=== PATIENT | male | born 1945 | race Caucasian/White ===

== ENCOUNTER 2020-08-02 06:18 | Day surgery (SDC) | payer MEDICARE, SELFPAY ==
[2020-07-27 10:53] VITALS: BMI 26.2
--- NOTE | 2020-07-30 08:51 | HO.ANESPROP2 ---
Documented by User: Sheryl Jensen 07/30/20 08:52 HPI - Anesthesia Eval Consult details Narrative: 75yo M for Upper Endoscopy Vague report of reaction to anesthesia many years ago. Multiple surgeries without any issue since. [facility] Past Medical History Medical History (Updated 07/30/20 @ 08:52 by Sheryl Jensen) Kerr esophagus Diabetes mellitus GERD (gastroesophageal reflux disease) Hiatal hernia History of anesthesia reaction History of hepatitis B History of skin cancer Hyperlipidemia Hypertension Surgical History Surgical History (Updated 07/27/20 @ 10:40 by Mirna Zelaya) History of dental surgery History of esophagogastroduodenoscopy (EGD) History of tracheostomy as a child Hx of appendectomy Hx of cholecystectomy Hx of colonoscopy Hx of endoscopic retrograde cholangiopancreatography Social History Social History Are you a primary inspector health care facilities to a significant other at home: No Do you presently have visiting nurse or other home services: No Smoking Status: Former smoker Smoking Quit Date: 40 yrs ago Use of substances other than those prescribed or required for medical reasons: No Have you been hit, kicked, punched, or otherwise hurt by someone within the past year? If so, by whom?: No Advance Directives: No Advance Directives Information Provided: No Advance Directives on File: No Recently lost weight without trying: No Meds Allergies Allergy/AdvReac Type Severity Reaction Status Date / Time peanut [PEANUT] Allergy Unknown FACIAL Verified 08/02/20 06:36 SWELLIN - ITCHY ALL OVER Seasonal Allergies Allergy Nasal Verified 07/27/20 10:48 congestion Home Medications Medication Instructions Recorded Confirmed Last Taken Type acetaminophen [Tylenol] 650 mg PO Q6H PRN 07/27/20 07/27/20 Unknown History aspirin [Baby Aspirin] 81 mg PO DAILY 07/27/20 07/27/20 Unknown History cholecalciferol (vitamin D3) 50 mcg PO DAILY 07/27/20 07/27/20 Unknown History [Vitamin D3] lisinopril 1 tab PO BID 07/27/20 07/27/20 Unknown History meclizine 1 tab PO BEDTIME 07/27/20 07/27/20 Unknown History metformin 1 tab PO DAILY 07/27/20 07/27/20 Unknown History omeprazole 1 cap PO BEDTIME 07/27/20 07/27/20 Unknown History simvastatin 1 tab PO DAILY 07/27/20 07/27/20 Unknown History Exam Exam Date and Time: July 30, 2020 0851 Height,Weight and Vital Signs: Height 5 ft 4 in Weight 69.4 kg Assessment and Plan Assessment Anesthesia Assessment: Chart Reviewed Documented by User: Geri Logan 08/02/20 07:19 [facility] Past Medical History Medical History (Updated 07/30/20 @ 08:52 by Sheryl Jensen) Kerr esophagus Diabetes mellitus GERD (gastroesophageal reflux disease) Hiatal hernia History of anesthesia reaction History of hepatitis B History of skin cancer Hyperlipidemia Hypertension Surgical History Surgical History (Updated 07/27/20 @ 10:40 by Mirna Zelaya) History of dental surgery History of esophagogastroduodenoscopy (EGD) History of tracheostomy as a child Hx of appendectomy Hx of cholecystectomy Hx of colonoscopy Hx of endoscopic retrograde cholangiopancreatography Social History Social History Are you a primary inspector health care facilities to a significant other at home: No Do you presently have visiting nurse or other home services: No Smoking Status: Former smoker Smoking Quit Date: 40 yrs ago Use of substances other than those prescribed or required for medical reasons: No Have you been hit, kicked, punched, or otherwise hurt by someone within the past year? If so, by whom?: No Advance Directives: No Advance Directives Information Provided: No Advance Directives on File: No Recently lost weight without trying: No Meds Allergies Allergy/AdvReac Type Severity Reaction Status Date / Time peanut [PEANUT] Allergy Unknown FACIAL Verified 08/02/20 06:36 SWELLIN - ITCHY ALL OVER Seasonal Allergies Allergy Nasal Verified 07/27/20 10:48 congestion Home Medications Medication Instructions Recorded Confirmed Last Taken Type acetaminophen [Tylenol] 650 mg PO Q6H PRN 07/27/20 07/27/20 Unknown History aspirin [Baby Aspirin] 81 mg PO DAILY 07/27/20 07/27/20 Unknown History cholecalciferol (vitamin D3) 50 mcg PO DAILY 07/27/20 07/27/20 Unknown History [Vitamin D3] lisinopril 1 tab PO BID 07/27/20 07/27/20 Unknown History meclizine 1 tab PO BEDTIME 07/27/20 07/27/20 Unknown History metformin 1 tab PO DAILY 07/27/20 07/27/20 Unknown History omeprazole 1 cap PO BEDTIME 07/27/20 07/27/20 Unknown History simvastatin 1 tab PO DAILY 07/27/20 07/27/20 Unknown History Exam Airway Mallampati Class: II TM Dist: >3cm Neck ROM: Full Denture: Upper Heart: RRR Lungs: CtA BL Assessment and Plan Assessment Anesthesia Assessment: Anesthesia Plan Discussed and Chart Reviewed Final Anesthetic Review NPO: Yes ASA Class: III Final Preanesthetic Review: No Changes in Pt Med Stat and Consent Obtained/Reviewed Patient Risk: Intermediate Procedure Risk: Intermediate Anesthetic Plan Anesthetic Plan: MAC: Disposition: Standard PACU
[2020-08-02 06:50] VITALS: BP 156/78; PULSE 64; RESP 16; TEMP 36.2; O2SAT 95
[2020-08-02 06:55] LABS: Glucose, Whole Blood 151 mg/dL (60-115)
[2020-08-02] MEDS: Lactated Ringers 1,000 ML 100 ML IVCONT (07:05)
[2020-08-02 08:00] VITALS: BP 95/61; PULSE 73; RESP 18; TEMP 36.2; O2SAT 93
--- NOTE | 2020-08-02 08:05 | PM.OP ---
Brief Operative Note Date of Service: 08/02/20 Pre-op diagnosis: Kerr's esophagus Post-op diagnosis: other (Same, Hiatal hernia, Gastric retention) Procedure: EGD with biopsies Surgeon: Sd Phillips Anesthesia: MAC Estimated blood loss (mL): 3.0 Pathology: other (A. EG Junction at 33cm) Condition: stable Disposition: PACU
[2020-08-02 08:15] VITALS: BP 135/81; PULSE 71; RESP 18; TEMP 36.1; O2SAT 93
--- NOTE | 2020-08-02 09:33 | OP_ITS ---
SURGEON: Sd Phillips MD INDICATIONS: The patient presents for evaluation of Kerr's esophagus and low-grade dysplasia. Full consent has been obtained from him for this, including risks of bleeding and perforation. PREOPERATIVE DIAGNOSIS: POSTOPERATIVE DIAGNOSIS: PROCEDURE PERFORMED: Esophagogastroduodenoscopy with biopsies. ESTIMATED BLOOD LOSS: COMPLICATIONS: ANESTHESIA: Monitored anesthesia care. ASSISTANTS: SPECIMENS: PREOPERATIVE DIAGNOSES: Kerr's esophagus and low-grade dysplasia. POSTOPERATIVE DIAGNOSES: Kerr's esophagus and low-grade dysplasia, hiatal hernia, gastric retention. DESCRIPTION OF PROCEDURE: The patient was placed in the left lateral decubitus position. The Olympus video gastroscope was passed in the posterior oropharynx and upper esophagus under direct vision. The scope was passed slowly into the distal esophagus. The gastroesophageal junction appeared at 33 cm. There were small areas of Kerr's appearing mucosa, less than 1 cm in length and in just small segments. There was no esophagitis. There was a moderate-sized hiatal hernia. The scope was entered into the stomach. There was a moderate amount of food within the stomach. The scope was advanced, past this to the pylorus. The duodenum was cannulated to the descending portion. The duodenum including the bulb appeared normal without mass or ulceration. The scope was withdrawn back in the stomach. The pylorus was patent. Peristalsis appeared normal. The gastric antrum and body appeared normal. The scope was retroflexed visualizing the proximal stomach, but visualization was almost completely obscured due to the food. There were no abnormalities noted, but again visualization was very limited. The scope was straightened out and withdrawn back into the esophagus. Multiple biopsies were obtained at 33 cm from the areas that appeared grossly consistent with Kerr's mucosa. Proximal to this, the esophageal mucosa appeared normal. The scope was withdrawn from the patient. He tolerated the procedure well and was returned to the recovery area in stable condition. IMPRESSION: 1. History of Kerr's esophagus, rule out dysplasia. 2. Hiatal hernia. 3. Gastric retention. PLAN: The results of the biopsy will be checked. If the biopsies appear normal or just with low-grade dysplasia, I would then recommend a repeat upper endoscopy within 1 to 2 years. If there is any worsening of the dysplasia, then we would need to consider referral for endoscopic ablation of the Kerr's mucosa. He will continue his current omeprazole 20 mg daily. He has no symptoms of gastroparesis at this time, but I will speak with him and his regarding that and advise him to be sure not to eat for at least 4 hours before bedtime. If he develops any symptoms such as early satiety, then we may need to proceed with a nuclear medicine gastric emptying study. MD YOANA Spangler/JOSE / [id number] MTDD
== END 2020-08-02 08:55 | disposition home or self-care (01) ==
PROVIDERS: PCP Internal Medicine; Visit Provider Internal Medicine
PROC: 0DJ08ZZ Inspection of Upper Intestinal Tract, Via Natural or Artificial Opening Endoscopic (ICD-10-PCS; CPT 43235; principal; 2020-08-02 07:30)
DX: K22.710 Barrett's esophagus with low grade dysplasia (principal); K21.9 Gastro-esophageal reflux disease without esophagitis; K31.89 Other diseases of stomach and duodenum; K44.9 Diaphragmatic hernia without obstruction or gangrene; I10 Essential (primary) hypertension; E11.9 Type 2 diabetes mellitus without complications; Z79.84 Long term (current) use of oral hypoglycemic drugs; Z79.899 Other long term (current) drug therapy
CPT/HCPCS: 43239; 82947; 88305

== ENCOUNTER 2020-08-30 09:03 | Outpatient (REF) | payer MEDICARE, SELFPAY ==
[2020-08-30 10:23] LABS: MANUAL DIFF FLAG NO
[2020-08-30 10:30] LABS: Glucose Urine UA NEG (NEG); Leukocyte Esterase Urine NEG (NEG); Nitrite Urine NEG (NEG); Urine Blood NEG (NEG); Urine Ketones NEG (NEG); Urine Protein NEG (NEG-TRACE)
[2020-08-30 10:35] LABS: Basophils Percent Auto 0.7 % (0-2); Eosinophils Absolute Auto 0.3 X10*3/uL (0.0-0.4); Eosinophils Percent Auto 6.6 % (0-4); Hematocrit 41.7 % (42-52); Hemoglobin 14.2 g/dl (14.0-18.0); Imm Gran Abs Auto 0.02 X10*3/uL (0.00-0.03); Imm Gran Pct Auto 0.5 % (0.0-0.4); Lymphocytes Absolute Auto 1.3 X10*3/uL (1.2-4.9); Lymphocytes Percent Auto 31.3 % (20-40); Mean Corpuscular HGB Conc 34.1 g/dl (31.0-36.0); Mean Corpuscular Hemoglobin 32.6 pg (27.0-33.0); Mean Corpuscular Volume 95.9 fL (80-98); Mean Platelet Volume 9.7 fL (9.4-12.4); Monocytes Absolute Auto 0.4 X10*3/uL (0.1-1.2); Monocytes Percent Auto 8.2 % (2-11); Neutrophils Absolute Auto 2.2 X10*3/uL (2.0-8.3); Neutrophils Percent Auto 52.7 % (45-73); Platelet Count 108 X10*3/uL (160-400); Red Blood Count 4.35 X10*6/uL (4.60-5.80); Red Cell Distribution Width 11.9 % (11.0-16.0); White Blood Count 4.3 X10*3/uL (4.8-10.8)
[2020-08-30 10:50] LABS: Microalbum/Creatinine Ratio Ur 22.1 ug/mg cr
[2020-08-30 10:56] LABS: Alanine Aminotransferase 55 U/L (0-40); Albumin Level 4.2 g/dL (3.5-5.0); Alkaline Phosphatase 121 U/L (39-117); Anion Gap 11 (12-20); Aspartate Amino Transferase 53 U/L (5-37); Bilirubin Total 1.6 mg/dL (0.0-1.0); Blood Urea Nitrogen 17 mg/dL (9-16); Calcium 9.4 mg/dL (8.4-10.2); Carbon Dioxide 27 mmol/L (22-29); Chloride 107 mmol/L (96-108); Cholesterol 169 mg/dL; Estimated Glomerular Filt Rate > 60; Glucose Fasting 136 mg/dL (60-99); HDL Cholesterol 52 mg/dL; LDL Cholesterol Calculated 96 mg/dl; Potassium 4.4 mmol/L (3.3-5.1); Sodium 141 mmol/L (135-145); Total Protein 6.9 g/dL (6.5-8.0); Triglycerides 105 mg/dL
[2020-08-30 10:58] LABS: Appearance Urine CLEAR; Color Urine YELLOW
[2020-08-30 11:22] LABS: Prostate Specific Antigen Scr 0.54 ng/mL (<0.05-4.0)
[2020-08-30 11:24] LABS: Estimated Average Glucose 134 mg/dL; Hemoglobin A1c % 6.3 %
== END 2020-08-30 09:04 | disposition home or self-care (01) ==
LOC: HO.10HDL 09:03
PROVIDERS: Visit Provider Internal Medicine
DX: E11.9 Type 2 diabetes mellitus without complications (principal); N40.0 Benign prostatic hyperplasia without lower urinary tract symptoms; E78.00 Pure hypercholesterolemia, unspecified; K21.9 Gastro-esophageal reflux disease without esophagitis; Z12.5 Encounter for screening for malignant neoplasm of prostate
CPT/HCPCS: 36415; 80053; 80061; 81003; 82043; 83036; 84153; 85025

== ENCOUNTER 2020-12-30 06:11 | Day surgery (SDC) | payer MEDICARE, SELFPAY ==
[2020-12-24 16:30] VITALS: BMI 24.9
--- NOTE | 2020-12-29 13:12 | P.CONAN_ITS ---
Documented by User: Sheryl Jensen NP 12/29/20 13:14 HPI - Anesthesia Eval Consult details Narrative: 75yo M for Right Great Toe Metatarsal Fusion, Arthrodesis PCP cleared (dictation pending) s/p EGD with MAC 07/2020 without issue PMFSH Past Medical History Medical History (Updated 12/28/20 @ 08:17 by Reena Sauer, SONYA) Kerr esophagus Diabetes mellitus GERD (gastroesophageal reflux disease) Hiatal hernia History of anesthesia reaction History of hepatitis B History of skin cancer Hyperlipidemia Hypertension Loud snoring Post-ERCP acute pancreatitis Surgical History Surgical History (Updated 12/24/20 @ 16:24 by Reena Sauer, SONYA) History of dental surgery History of esophagogastroduodenoscopy (EGD) History of tracheostomy as a child Hx of appendectomy Hx of cholecystectomy Hx of colonoscopy Hx of endoscopic retrograde cholangiopancreatography Hx of nasal septoplasty Social History Social History (Updated 12/24/20 @ 16:25 by Reena Sauer RN) Are you a primary healthcare business analyst to a significant other at home: No Do you presently have visiting nurse or other home services: No Patient Tobacco Use Status: Former Tobacco user Quit Date: Are you DNR?: No Advance Directives: No Advance Directives Information Provided: No Advance Directives on File: No Meds Allergies Allergy/AdvReac Type Severity Reaction Status Date / Time [place] nut Allergy Severe Facial Verified 12/24/20 16:26 Swelling, itching Seasonal Allergies Allergy Nasal Verified 07/27/20 10:48 congestion Home Medications Medication Instructions Recorded Confirmed Last Taken Type acetaminophen 325 mg tablet 650 mg PO Q6H PRN 07/27/20 12/24/20 Unknown History (Tylenol) aspirin 81 mg chewable tablet 81 mg PO DAILY 07/27/20 12/24/20 Unknown History cholecalciferol (vitamin D3) 50 50 mcg PO DAILY 07/27/20 12/24/20 Unknown History mcg (2,000 unit) capsule (Vitamin D3) lisinopril 10 mg tablet 20 mg PO DAILY 07/27/20 12/24/20 Unknown History meclizine 12.5 mg tablet 1 tab PO BEDTIME 07/27/20 07/27/20 Unknown History metformin 500 mg tablet 1 tab PO DAILY 07/27/20 12/24/20 Unknown History omeprazole 20 mg capsule,delayed 1 cap PO BEDTIME 07/27/20 12/24/20 Unknown History release simvastatin 20 mg tablet 1 tab PO BEDTIME 07/27/20 12/24/20 Unknown History Exam Exam Date and Time: December 29, 2020 1312 Height,Weight and Vital Signs: Height 5 ft 4 in Weight 65.771 kg Pertinent Lab Results Pertinent Lab Results: Laboratory Tests 08/30/20 08/30/20 09:10 09:10 WBC 4.3 L Hgb 14.2 Hct 41.7 L Plt Count 108 L Sodium 141 Potassium 4.4 Chloride 107 Carbon Dioxide 27 BUN 17 H Creatinine 0.96 Assessment and Plan Assessment Anesthesia Assessment: Chart Reviewed Documented by User: Erika Quiroz MD 12/30/20 07:28 [facility] Past Medical History Medical History (Updated 12/28/20 @ 08:17 by Reena Sauer, SONYA) Kerr esophagus Diabetes mellitus GERD (gastroesophageal reflux disease) Hiatal hernia History of anesthesia reaction History of hepatitis B History of skin cancer Hyperlipidemia Hypertension Loud snoring Post-ERCP acute pancreatitis Functional capacity: independent ambulation Surgical History Surgical History (Updated 12/24/20 @ 16:24 by Reena Sauer, SONYA) History of dental surgery History of esophagogastroduodenoscopy (EGD) History of tracheostomy as a child Hx of appendectomy Hx of cholecystectomy Hx of colonoscopy Hx of endoscopic retrograde cholangiopancreatography Hx of nasal septoplasty Social History Social History (Updated 12/24/20 @ 16:25 by Reena Sauer, SONYA) Are you a primary healthcare business analyst to a significant other at home: No Do you presently have visiting nurse or other home services: No Patient Tobacco Use Status: Former Tobacco user Quit Date: Are you DNR?: No Advance Directives: No Advance Directives Information Provided: No Advance Directives on File: No Meds Allergies Allergy/AdvReac Type Severity Reaction Status Date / Time [place] nut Allergy Severe Facial Verified 12/24/20 16:26 Swelling, itching Seasonal Allergies Allergy Nasal Verified 07/27/20 10:48 congestion Home Medications Medication Instructions Recorded Confirmed Last Taken Type acetaminophen 325 mg tablet 650 mg PO Q6H PRN 07/27/20 12/24/20 Unknown History (Tylenol) aspirin 81 mg chewable tablet 81 mg PO DAILY 07/27/20 12/24/20 Unknown History cholecalciferol (vitamin D3) 50 50 mcg PO DAILY 07/27/20 12/24/20 Unknown History mcg (2,000 unit) capsule (Vitamin D3) lisinopril 10 mg tablet 20 mg PO DAILY 07/27/20 12/24/20 Unknown History meclizine 12.5 mg tablet 1 tab PO BEDTIME 07/27/20 07/27/20 Unknown History metformin 500 mg tablet 1 tab PO DAILY 07/27/20 12/24/20 Unknown History omeprazole 20 mg capsule,delayed 1 cap PO BEDTIME 07/27/20 12/24/20 Unknown History release simvastatin 20 mg tablet 1 tab PO BEDTIME 07/27/20 12/24/20 Unknown History Exam Airway TM Dist: >3cm Neck ROM: Full Denture: Upper Heart: RRR Lungs: CTA
--- NOTE | 2020-12-29 14:29 | HP_ITS ---
DATE OF SERVICE: 12/30/2020 DATE OF PROPOSED SURGERY: December 30, 2020. PREOPERATIVE DIAGNOSIS: Hallux rigidus, right first metatarsophalangeal joint. PLANNED PROCEDURE: Arthrodesis/fusion, right first metatarsophalangeal joint using the Bender/Rei plate and screw system and mini C-arm visualization. PLANNED ANESTHESIA: Either MAC or general. CHIEF COMPLAINT AND HISTORY OF PRESENT ILLNESS: Efrain Flynn is a 75-year-old male, who relates history of sharp, achy, stiff pain of the right great toe joint, presented over the past several years duration. He relates that this happened following a fracture while playing soccer many years ago. His pain is aggravated by shoe gear and walking activity. Conservative treatment consisting of altered shoe gear has proven ineffective. The patient is now requesting surgical treatment. PAST MEDICAL HISTORY: Positive for diabetes, hiatal hernia, hypertension, GERD. CURRENT MEDICATIONS: Metformin, lisinopril, omeprazole, simvastatin. ALLERGIES: THE PATIENT HAS NO KNOWN DRUG SENSITIVITIES. HE DOES RELATE AN ALLERGY TO TREE NUTS. FAMILY HISTORY: Significant for arthritis. SOCIAL HISTORY: The patient discontinued smoking 50 years ago, he denies use of alcohol. Denies use of any recreational drugs. He does typically drink caffeinated drinks. The patient is , has 2 adult children. PODIATRIC PHYSICAL EXAM: VASCULAR EXAM: The patient displays +2/4 pulses, DP and PT arteries bilateral with normal cap refill time noted bilateral feet. NEUROLOGIC EXAM: Reveals decreased vibratory sensation bilateral. Sharp pain on palpation noted dorsum of the right first metatarsophalangeal joint. DERMATOLOGIC EXAM: Reveals intact skin. ORTHOPEDIC EXAM: Reveals painful limited range of motion of the right first metatarsophalangeal joint with pain on palpation of this same joint noted. The patient was seen most recently in my office on December 22, 2020. Preoperative informed consent was obtained from the patient that day. Preoperative medical clearance has been provided by the patient's primary care physician, Dr. Pete Veras. TG Palafox/JOSE / [id number]
--- NOTE | ~2020-12-30 | FL_ITS ---
EXAMINATION: XR FLUOROSCOPY WITH IMAGES CLINICAL INFORMATION: Great toe metatarsal fusion arthrodesis. COMPARISON: None. TECHNIQUE: Fluoroscopy performed by Dr. Hopper. Fluoroscopy time: 14 seconds DAP: [id number] [id number] Images: 1 saved fluoroscopic image. FINDINGS: Single image demonstrates plate and screws across the 1st MTP joint. FL/FL guidance in OR IMPRESSION: Fluoroscopy guidance for great toe metatarsal fusion.
[2020-12-30 06:23] VITALS: BP 171/75; PULSE 85; RESP 16; TEMP 35.9; O2SAT 96
[2020-12-30 06:38] LABS: Glucose, Whole Blood 158 mg/dL (60-115)
[2020-12-30] MEDS: Lactated Ringers 1,000 ML 100 ML IVCONT (06:42)
--- NOTE | 2020-12-30 08:52 | MHC.SHP ---
Pre-Procedural Eval Section A Date of Service: 12/30/20 The patient is an INPATIENT: No Changes since office visit: No Cold of Flu in the past 2 weeks, No New Medical Problems, No Changes in Medication and No Patient answered all questions The History & Physical has been completed within 30 days and I have reviewed it.: Yes Section B Chief Complaint: hallux right foot Relevant Family History (Specify if Yes): No Relevant Social History: None Present Medications: None Allergies: Allergies Allergy/AdvReac Type Severity Reaction Status Date / Time [place] nut Allergy Severe Facial Verified 12/24/20 16:26 Swelling, itching Seasonal Allergies Allergy Nasal Verified 07/27/20 10:48 congestion Plan Diagnosis/Plan: Unchanged I have reviewed the history and physical and performed a pertinent physical examination on my patient. No changes have occurred unless specified.
--- NOTE | 2020-12-30 08:53 | PM.PROC ---
Brief Operative Note Date of procedure: 12/30/20 Pre-op diagnosis: hallux rigidus right Post-op diagnosis: same Procedure: arthrodesis right first mtpj Anesthesia: MAC Surgeon: Betito Hopper Research Food Technologist: Cordelia Mcdaniels Estimated blood loss (mL): 1.0 Condition: stable Disposition: same day
[2020-12-30 08:56] VITALS: BP 113/63; PULSE 56; RESP 16; TEMP 36.5; O2SAT 97
[2020-12-30 09:10] VITALS: BP 139/77; PULSE 55; RESP 18; O2SAT 96
[2020-12-30 09:25] VITALS: BP 150/87; PULSE 57; RESP 18; TEMP 36.5; O2SAT 97
--- NOTE | 2020-12-30 09:49 | HP_ITS ---
DATE OF SERVICE: 12/30/2020 HISTORY OF PRESENT ILLNESS: Patient is a 75-year-old male who is seen in the office for preop evaluation 12/13/2020. Patient states he feels well. PRESENT MEDICATIONS: Lisinopril 20 mg a day, Prilosec 20 mg a day, metformin 500 mg a day, and simvastatin 20 mg a day. PAST MEDICAL HISTORY: Significant for hypertension, acid reflux disease, type 2 diabetes, elevated cholesterol, history of skin cancer, BPH, Kerr's esophagus, arthritis of the feet, diphtheria 5 years old, appendectomy, hiatal hernia, gallbladder surgery nonsmoker since 1979. REVIEW OF SYSTEMS: Weight is down 4 pounds. No fevers, chills, or sweats. Some occasional vertigo on the left. No vision changes. No chest pains or palpitations. No shortness of breath, coughing, or wheezing. No abdominal pain or heartburn. Some nocturia. No other urinary complaints. Some arthritis. No speech changes. Sleep is sometimes disrupted. Appetite is normal. No hay fever. No skin complaints. PHYSICAL EXAMINATION: GENERAL: He is awake and alert, in no distress. VITAL SIGNS: Temperature is 98.1, pulse 70, respirations 12, blood pressure 130/70, 97% O2 saturation on room air. Weight 149, height 5 feet 4 inches. HEENT: Pupils equal. TMs clear. Pharynx clear. NECK: Supple. No nodes, bruits, or masses. HEART: Sounds S1 and S2. Regular rate. LUNGS: Clear. ABDOMEN: Soft, nontender. Positive bowel sounds. No HSM. EXTREMITIES: No clubbing, cyanosis, or edema. 2+ pulses. NEUROLOGICAL: Nonfocal. Cranial nerves II through XII are intact. ASSESSMENT AND PLAN: He is medically stable for the proposed procedure. I will be available if there are any medical questions. EKG and labs were done at the hospital and are available through [employer]. MD ANAHY John/ROGELIOL / [id number]
--- NOTE | 2020-12-30 11:28 | HO.POSTANES ---
Post Anesthesia Evaluation Post Anesthesia Evaluation Vital Signs: Vital Signs Temp Pulse Resp BP Pulse Ox 12/30/20 09:25 97.7 F 57 18 150/87 H 97 12/30/20 09:10 55 18 139/77 96 12/30/20 08:56 97.7 F 56 16 113/63 97 12/30/20 06:23 96.7 F L 85 16 171/75 H 96 Anesthesia: Monitored Mental Status: Awake Pain Control: Satisfactory Nausea/Vomiting: None Hydration: Adequate Anesthesia-Related Issues: No Anes. Related Issues
--- NOTE | 2021-03-04 12:33 | OP_ITS ---
SURGEON: Betito Hopper DPM PREOPERATIVE DIAGNOSIS: Hallux rigidus, right first metatarsophalangeal joint. POSTOPERATIVE DIAGNOSIS: Hallux rigidus, right first metatarsophalangeal joint. PROCEDURE PERFORMED: Arthrodesis, right first metatarsophalangeal joint using the right CrossCheck arthrodesis system. ESTIMATED BLOOD LOSS: COMPLICATIONS: ANESTHESIA: Consisted of local administration of a total of 12 mL of an equal mix of 2% lidocaine with epinephrine 1:100,000 and 0.5% Marcaine plain. Intravenous sedation was provided by the Anesthesia Department. ASSISTANTS: Dr. Mcdaniels. SPECIMENS: INTRODUCTION: The patient was brought to the operating room table and placed on the operative table in supine position. After having been suitably anesthetized with local infiltrative anesthesia, the right lower extremity was then prepped and draped in usual sterile manner. Please note that prior to the start of the procedure, the right foot was exsanguinated utilizing Esmarch bandage and right ankle tourniquet was inflated to 225 mmHg pressure for the duration of the procedure. ARTHRODESIS, RIGHT FIRST METATARSOPHALANGEAL JOINT. Attention was directed to the dorsum of the right first metatarsophalangeal joint, where a dorsal linear incision approximately 7 cm in length was effected and centered over the dorsum of the right first metatarsophalangeal joint. Incision was deepened in the same plane and hemostasis was acquired as necessary. The skin margins were underscored and retracted. A dorsal linear capsule incision was then effected and the capsule and periosteum were underscored and retracted. Utilizing a McGlamry elevator, the adhesions between the sesamoid complex and metatarsal head were released. The small medial eminence of the first metatarsal head was resected utilizing sagittal saw. Then utilizing the [employer] metatarsal reamer system, the metatarsal head and base of proximal phalanx were prepared 18 mm diameter reamers to suitably provide excellent contouring for the arthrodesis site. Once this was achieved, the subchondral bone was then drilled utilizing a 0.062 inch K-wire and 2.5 drill. Small gapping was noted and this was packed with Vitoss bone fill. The CrossCheck plate was then placed dorsally and fixated in the normal stepwise approach. The 2 distal screws being placed first. The diagonal crossing screw 3rd and then the 2 proximal screws being placed last. The plate and screw fixation from the right CrossCheck system was found to give excellent fixation. Please note that mini C-arm visualization was utilized throughout the procedure to check the alignment of the arthrodesis site as well as fixation. The wound was irrigated. The capsule was closed with 3-0 Vicryl. Skin margins were closed with 4-0 Maxon subcuticular and the [place] ZipLine system was used on the skin. The surgical site was then injected with a total 5 mL of Marcaine 0.5% plain at the end and 1 mL of dexamethasone phosphate. Sterile dressings were applied to the right lower extremity. The right ankle tourniquet was deflated and normal blood was established to the right lower extremity. The patient tolerated the surgery and anesthesia well and left the operating room via cart to the recovery room with vital signs stable. FINAL DISPOSITION: The patient is discharged home with instructions for the followin. To keep the dressings dry, clean, and intact. 2. To keep the right leg elevated with ice above the bandaging. 3. Take all medications as prescribed. 4. To limit activity to minimum. 5. To maintain strict nonweightbearing status on the right foot utilizing either crutches, walker, or the knee scooter, which the patient obtained preoperatively. 6. Lastly, the patient has prescriptions for ibuprofen 800 mg 1 p.o. t.i.d. p.c., Keflex 500 mg 1 p.o. b.i.d., gabapentin 400 mg, total #3 one p.o. daily at bedtime, and the patient is also instructed to utilize Tylenol intermittently as needed for pain. TG Palafox/JOSE / [id number]
== END 2020-12-30 09:52 | disposition home or self-care (01) ==
PROVIDERS: PCP Internal Medicine; Visit Provider Podiatrist
PROC: (CPT 28735; principal; 2020-12-30 07:30)
DX: M20.21 Hallux rigidus, right foot (principal); M19.072 Primary osteoarthritis, left ankle and foot; M19.071 Primary osteoarthritis, right ankle and foot; I10 Essential (primary) hypertension; E78.00 Pure hypercholesterolemia, unspecified; E11.9 Type 2 diabetes mellitus without complications; Z79.84 Long term (current) use of oral hypoglycemic drugs; Z79.899 Other long term (current) drug therapy; Z85.828 Personal history of other malignant neoplasm of skin; Z87.891 Personal history of nicotine dependence
CPT/HCPCS: 28750; 82947; 88304; 88311; C1713; J0690; J1100; J2405; J3010

== ENCOUNTER 2021-04-20 09:16 | Outpatient (REF) | payer MEDICARE, SELFPAY ==
[2021-04-20 10:52] LABS: Alanine Aminotransferase 53 U/L (0-40); Albumin Level 3.8 g/dL (3.5-5.0); Alkaline Phosphatase 183 U/L (39-117); Anion Gap 11 (12-20); Aspartate Amino Transferase 53 U/L (5-37); Bilirubin Total 1.9 mg/dL (0.0-1.0); Blood Urea Nitrogen 17 mg/dL (9-16); Calcium 9.5 mg/dL (8.4-10.2); Carbon Dioxide 27 mmol/L (22-29); Chloride 107 mmol/L (96-108); Cholesterol 190 mg/dL; Estimated Glomerular Filt Rate > 60; Glucose Fasting 123 mg/dL (60-99); HDL Cholesterol 56 mg/dL; LDL Cholesterol Calculated 116 mg/dl; Potassium 4.4 mmol/L (3.3-5.1); Sodium 141 mmol/L (135-145); Triglycerides 94 mg/dL
[2021-04-20 11:13] LABS: Prostate Specific Antigen Scr 0.57 ng/mL (<0.05-4.0); Vitamin D 25-OH Total 63.8 ng/mL (>30)
[2021-04-20 11:28] LABS: Appearance Urine CLEAR; Color Urine YELLOW; Glucose Urine UA NEG (NEG); Leukocyte Esterase Urine NEG (NEG); Nitrite Urine NEG (NEG); Urine Blood NEG (NEG); Urine Ketones NEG (NEG); Urine Protein NEG (NEG-TRACE)
== END 2021-04-20 09:17 | disposition home or self-care (01) ==
LOC: HO.10HDL 09:16
PROVIDERS: Visit Provider Internal Medicine
DX: Z12.5 Encounter for screening for malignant neoplasm of prostate (principal); N40.0 Benign prostatic hyperplasia without lower urinary tract symptoms; E55.9 Vitamin D deficiency, unspecified; E11.9 Type 2 diabetes mellitus without complications; I10 Essential (primary) hypertension; K21.9 Gastro-esophageal reflux disease without esophagitis; E78.00 Pure hypercholesterolemia, unspecified
CPT/HCPCS: 36415; 80053; 80061; 81003; 82306; 84153

== ENCOUNTER 2021-05-23 08:37 | Day surgery (SDC) | payer MEDICARE, SELFPAY ==
[2021-05-16 14:13] VITALS: BMI 24.9
--- NOTE | 2021-05-19 08:02 | P.HPSUR_ITS ---
Pre-Procedural Eval Section A Date of Service: 05/19/21 The patient is an INPATIENT: No Changes since office visit: No Cold of Flu in the past 2 weeks, No New Medical Problems, No Changes in Medication and No Patient answered all questions The History & Physical has been completed within 30 days and I have reviewed it.: Yes Section B Chief Complaint: cataract left eye Allergies: Allergies Allergy/AdvReac Type Severity Reaction Status Date / Time [place] nut Allergy Severe Facial Verified 12/24/20 16:26 Swelling, itching Seasonal Allergies Allergy Intermediate Nasal Verified 05/16/21 13:57 congestion Plan Diagnosis/Plan: Unchanged I have reviewed the history and physical and performed a pertinent physical examination on my patient. No changes have occurred unless specified.
--- NOTE | 2021-05-20 02:19 | HP_ITS ---
DATE OF SERVICE: 05/23/2021 HISTORY OF PRESENT ILLNESS: This is a 76-year-old male, unknown to me prior to this consultation. I am seeing him in lieu of Dr. Suarez who is out sick. The patient is scheduled for cataract surgery on Sunday, the and then followup surgery in the right eye on June 13. Generally, the patient is feeling well. I have gotten records from him from Dr. Suarez and reviewed them. PAST MEDICAL HISTORY: Hypertension, well controlled; diabetes, on metformin; GERD; BPH; allergies (he gets monthly shots from ENT); and colon polyps. MEDICATIONS: Simvastatin, omeprazole, lisinopril, metformin, and of course he gets his monthly allergy shots. He is feeling very well generally. He had a recent Mohs procedure done by Dermatology for a lesion in his left . He was given postop 5-FU cream for which he developed a rash, and that is only thing he is really complaining about other than a small rash on the underside of his foreskin on his penis, which is not causing him any symptoms. REVIEW OF SYSTEMS: The patient has had no chest pains and no history of cardiovascular disease. He is not complaining of any breathing troubles, dizzy spells, GERD (the PPI is working), bowel change, headache, palpitations, or edema. He has BPH, but he has mild symptoms associated with that that do not require any medications. His blood sugar today was 124. His last A1c was 6.3. His blood pressure couple of days ago was 137/74; today, it is 150/80. PHYSICAL EXAMINATION: GENERAL: The patient has been feeling quite well and has no specific complaints except for those listed. On examination, we find a pleasant male, in no acute distress. VITAL SIGNS: His blood pressure today is 150/80, his pulse is 60, his temperature is normal, his weight is 148, and his height is 5.5. His BMI is less than 30. HEENT: Conjunctivae pink. Sclerae white. Mucous membranes are moist. Ear, nose, and throat exam is unremarkable. NECK: Veins are flat. Carotids are 3- without bruits. LUNGS: Clear. HEART: Normal sinus rhythm at 80. No murmurs. There was 1 PVC noted. ABDOMEN: Soft, nontender. No masses or organomegaly. EXTREMITIES: There is no edema in his extremities. NEUROLOGIC: He has no tremors. He has a small maculopapular rash at the head of the penis under the foreskin, which appears to be fungal in nature and he was given some Tinactin cream. LABORATORY DATA: His labs from August 2020 revealed a hematocrit of 41.7, LDL of 93, and a PSA of 0.54. His labs from February 2021 revealed a complete chemistry profile which was within normal limits except for a modestly elevated SGPT at 53. IMPRESSION: 1. Hypertension, well controlled. 2. Diabetes, well controlled (no neuropathy). 3. Gastroesophageal reflux disease. 4. BPH. 5. Balanitis. 6. . 7. Allergic sinusitis. PLAN: From a medical standpoint, the patient appears to be stable and is having no ongoing issues other than the minor ones mentioned by me. He should be cleared for cataract surgery and he is a low-risk patient with a low-risk procedure. Thank you very much. MD VIJAYA Lopez/JOSE / [id number]
--- NOTE | 2021-05-20 08:26 | P.CONAN_ITS ---
Documented by User: Sheryl Jensen NP 05/20/21 08:32 HPI - Anesthesia Eval Consult details Narrative: 76yo M for Left Cataract Extraction IOL Insertion No prev cataract on record PCP cleared [facility] Past Medical History Medical History (Updated 05/16/21 @ 14:12 by Kera Moody, SONYA) Kerr esophagus BPH (benign prostatic hyperplasia) COVID-19 vaccine series completed Diabetes mellitus GERD (gastroesophageal reflux disease) Hiatal hernia History of anesthesia reaction History of hepatitis B History of skin cancer Hyperlipidemia Hypertension Loud snoring Post-ERCP acute pancreatitis Surgical History Surgical History (Updated 05/16/21 @ 13:55 by Kera Moody RN) History of dental surgery History of esophagogastroduodenoscopy (EGD) History of tracheostomy as a child Hx of appendectomy Hx of cholecystectomy Hx of colonoscopy Hx of endoscopic retrograde cholangiopancreatography Hx of foot surgery Hx of nasal septoplasty Social History Social History (Updated 12/24/20 @ 16:25 by Reena Sauer RN) Are you a primary healthcare translator to a significant other at home: No Do you presently have visiting nurse or other home services: No Patient Tobacco Use Status: Never used Tobacco Use of substances other than those prescribed or required for medical reasons: No Have you been hit, kicked, punched, or otherwise hurt by someone within the past year? If so, by whom?: No Are you DNR?: No Advance Directives: No Advance Directives Information Provided: Yes Advance Directives on File: No Recently lost weight without trying: No Eating poorly because of decreased appetite: No Nutrition Risks: Surgical patient >75years Meds Allergies Allergy/AdvReac Type Severity Reaction Status Date / Time [place] nut Allergy Severe Facial Verified 12/24/20 16:26 Swelling, itching Seasonal Allergies Allergy Intermediate Nasal Verified 05/16/21 13:57 congestion Home Medications Medication Instructions Recorded Confirmed Last Taken Type acetaminophen 325 mg tablet 650 mg PO Q6H PRN 07/27/20 05/16/21 Unknown History (Tylenol) aspirin 81 mg chewable tablet 81 mg PO 2XW 07/27/20 05/16/21 Unknown History cholecalciferol (vitamin D3) 50 50 mcg PO DAILY 07/27/20 05/16/21 Unknown History mcg (2,000 unit) capsule (Vitamin D3) lisinopril 10 mg tablet 20 mg PO DAILY 07/27/20 05/16/21 Unknown History meclizine 12.5 mg tablet 1 tab PO BEDTIME 07/27/20 05/16/21 Unknown History metformin 500 mg tablet 1 tab PO DAILY 07/27/20 05/16/21 Unknown History omeprazole 20 mg capsule,delayed 1 cap PO 3XW 07/27/20 05/16/21 Unknown History release simvastatin 20 mg tablet 1 tab PO BEDTIME 07/27/20 05/16/21 Unknown History Exam Exam Date and Time: May 20, 2021 0826 Height,Weight and Vital Signs: Height 5 ft 4 in Weight 65.771 kg Pertinent Lab Results Pertinent Lab Results: Laboratory Tests 08/30/20 04/20/21 09:10 09:20 WBC 4.3 L Hgb 14.2 Hct 41.7 L Plt Count 108 L Sodium 141 Potassium 4.4 Chloride 107 Carbon Dioxide 27 BUN 17 H Creatinine 0.91 Assessment and Plan Assessment Anesthesia Assessment: Chart Reviewed Documented by User: Geri Logan MD 05/23/21 09:37 [facility] Past Medical History Medical History (Updated 05/16/21 @ 14:12 by Kera Moody RN) Kerr esophagus BPH (benign prostatic hyperplasia) COVID-19 vaccine series completed Diabetes mellitus GERD (gastroesophageal reflux disease) Hiatal hernia History of anesthesia reaction History of hepatitis B History of skin cancer Hyperlipidemia Hypertension Loud snoring Post-ERCP acute pancreatitis Family History Family history of problems with anesthesia: No Surgical History Surgical History (Updated 05/16/21 @ 13:55 by Kera Moody RN) History of dental surgery History of esophagogastroduodenoscopy (EGD) History of tracheostomy as a child Hx of appendectomy Hx of cholecystectomy Hx of colonoscopy Hx of endoscopic retrograde cholangiopancreatography Hx of foot surgery Hx of nasal septoplasty History of Problems with Anesthesia: No Social History Social History (Updated 12/24/20 @ 16:25 by Reena Sauer RN) Are you a primary healthcare translator to a significant other at home: No Do you presently have visiting nurse or other home services: No Patient Tobacco Use Status: Never used Tobacco Use of substances other than those prescribed or required for medical reasons: No Have you been hit, kicked, punched, or otherwise hurt by someone within the past year? If so, by whom?: No Are you DNR?: No Advance Directives: No Advance Directives Information Provided: Yes Advance Directives on File: No Recently lost weight without trying: No Eating poorly because of decreased appetite: No Nutrition Risks: Surgical patient >75years Meds Allergies Allergy/AdvReac Type Severity Reaction Status Date / Time [place] nut Allergy Severe Facial Verified 12/24/20 16:26 Swelling, itching Seasonal Allergies Allergy Intermediate Nasal Verified 05/16/21 13:57 congestion Home Medications Medication Instructions Recorded Confirmed Last Taken Type acetaminophen 325 mg tablet 650 mg PO Q6H PRN 07/27/20 05/16/21 Unknown History (Tylenol) aspirin 81 mg chewable tablet 81 mg PO 2XW 07/27/20 05/16/21 Unknown History cholecalciferol (vitamin D3) 50 50 mcg PO DAILY 07/27/20 05/16/21 Unknown History mcg (2,000 unit) capsule (Vitamin D3) lisinopril 10 mg tablet 20 mg PO DAILY 07/27/20 05/16/21 Unknown History meclizine 12.5 mg tablet 1 tab PO BEDTIME 07/27/20 05/16/21 Unknown History metformin 500 mg tablet 1 tab PO DAILY 07/27/20 05/16/21 Unknown History omeprazole 20 mg capsule,delayed 1 cap PO 3XW 07/27/20 05/16/21 Unknown History release simvastatin 20 mg tablet 1 tab PO BEDTIME 07/27/20 05/16/21 Unknown History Exam Airway Mallampati Class: II TM Dist: >3cm Neck ROM: Full Denture: Upper Heart: rrr Lungs: cta Assessment and Plan Assessment Anesthesia Assessment: Anesthesia Plan Discussed and Chart Reviewed Final Anesthetic Review Family History of Problems with Anesthesia: No History of Problems with Anesthesia: No NPO: Yes ASA Class: III Final Preanesthetic Review: No Changes in Pt Med Stat, Meds/Allgs Chart Reviewed and Consent Obtained/Reviewed Patient Risk: Intermediate Procedure Risk: Intermediate Anesthetic Plan Anesthetic Plan: MAC: Disposition: Standard PACU
[2021-05-23 09:03] VITALS: BP 157/65; PULSE 61; RESP 16; TEMP 37.2; O2SAT 95
[2021-05-23] MEDS: Tetracaine HCl/PF 0.5% Oph Sol 4 ML DROPS 1 DROP EYE-LEFT (09:15)
[2021-05-23] MEDS: Lactated Ringers 500 ML 50 ML IV (09:15)
[2021-05-23] MEDS: Tropicamide 1 % Ophth Sol 3 ML BTL 1 DROP EYE-LEFT ×3 (09:18→09:27)
[2021-05-23 09:21] LABS: Glucose, Whole Blood 124 mg/dL (60-115)
[2021-05-23] MEDS: Phenylephrine HCL 2.5% Oph SoL 2 ML BOTTLE 1 DROP EYE-LEFT ×3 (09:21→09:29)
--- NOTE | 2021-05-23 10:22 | OP_ITS ---
Ophthalmology Procedure Procedure Date of Service: 05/23/21 Ophthalmology Viscoelastic: Healcorby Duet Dual Pack Pro Ophthalmology Lenses: TECNIS [id number] (22.5) Procedure Notes: PREOPERATIVE DIAGNOSIS: Decreased visual acuity left eye secondary to cataract POSTOPERATIVE DIAGNOSIS: Same PROCEDURE: Left cataract extraction with intraocular lens insertion SURGEON: Kareem Sevilla M.D. ANESTHESIA: Topical/MAC ESTIMATED BLOOD LOSS: None COMPLICATIONS: None After obtaining informed consent, the patient was brought to the operation room suite and placed in the supine position. After adequate sedation per anesthesia, topical drops of Tetracaine were given to the left eye. The eye was then prepped and draped in the usual sterile fashion. The operating room microscope was then positioned over the operative eye and a lid speculum placed. A paracentesis was created. Viscoelastic was then instilled into the anterior chamber. A three plane incision was then created temporally, utilizing a 2.85 mm keratome. Capsulotomy forceps were then utilized to create a circular tear capsulotomy. Hydrodissection and hydrodelineation were carried out until adequate mobilization of the nucleus occurred. Phacoemulsification was then utilized to remove the dense central nucleus followed by removal of the cortical material utilizing the automated aspiration irrigation unit. Viscoat elastic was instilled into the posterior capsular bag followed by placement of a posterior chamber intraocular lens without difficulty. The residual Viscoat elastic was then removed utilizing the automated IA machine. The wound was check and found to be watertight. The patient tolerated the procedure well and the lid speculum was removed. Intracameral injection of Vigamox 0.1 mL followed by a subtenon injection of Kenalog-40 0.2 mL were administered. The patient will be seen in the a.m. MTDD
[2021-05-23 10:41] VITALS: BP 133/69; PULSE 62; RESP 16; TEMP 36.8; O2SAT 95
== END 2021-05-23 10:53 | disposition home or self-care (01) ==
PROVIDERS: PCP Internal Medicine; Visit Provider Ophthalmology
PROC: (CPT 66985; principal; 2021-05-23 11:20)
DX: H25.12 Age-related nuclear cataract, left eye (principal); H52.4 Presbyopia; I10 Essential (primary) hypertension; E11.9 Type 2 diabetes mellitus without complications; Z79.84 Long term (current) use of oral hypoglycemic drugs; Z79.899 Other long term (current) drug therapy; Z87.891 Personal history of nicotine dependence
CPT/HCPCS: 66984; 82947; J2250; J3010; J3300; V2632

== ENCOUNTER 2021-06-13 08:27 | Day surgery (SDC) | payer MEDICARE, SELFPAY ==
[2021-05-16 14:17] VITALS: BMI 24.9
--- NOTE | 2021-06-09 16:09 | P.HPSUR_ITS ---
Pre-Procedural Eval Section A Date of Service: 06/09/21 The patient is an INPATIENT: No Changes since office visit: No Cold of Flu in the past 2 weeks, No New Medical Problems, No Changes in Medication and No Patient answered all questions The History & Physical has been completed within 30 days and I have reviewed it.: Yes Section B Chief Complaint: cataract right eye Allergies: Allergies Allergy/AdvReac Type Severity Reaction Status Date / Time [place] nut Allergy Severe Facial Verified 12/24/20 16:26 Swelling, itching Seasonal Allergies Allergy Intermediate Nasal Verified 05/16/21 13:57 congestion Plan Diagnosis/Plan: Unchanged I have reviewed the history and physical and performed a pertinent physical examination on my patient. No changes have occurred unless specified.
--- NOTE | 2021-06-10 08:46 | HO.ANESPROP2 ---
Documented by User: Sheryl Jensen NP 06/10/21 08:49 HPI - Anesthesia Eval Consult details Narrative: 76yo M for Right Cataract Extraction IOL Insertion PCP Cleared Left eye 05/23/21 with MAC: Fent 50, Midaz 1 PMFSH Past Medical History Medical History (Updated 05/16/21 @ 14:12 by Kera Moody, SONYA) Kerr esophagus BPH (benign prostatic hyperplasia) COVID-19 vaccine series completed Diabetes mellitus GERD (gastroesophageal reflux disease) Hiatal hernia History of anesthesia reaction History of hepatitis B History of skin cancer Hyperlipidemia Hypertension Loud snoring Post-ERCP acute pancreatitis Family History Family history of problems with anesthesia: No Surgical History Surgical History (Updated 05/16/21 @ 13:55 by Kera Moody RN) History of dental surgery History of esophagogastroduodenoscopy (EGD) History of tracheostomy as a child Hx of appendectomy Hx of cholecystectomy Hx of colonoscopy Hx of endoscopic retrograde cholangiopancreatography Hx of foot surgery Hx of nasal septoplasty History of Problems with Anesthesia: No Social History Social History (Updated 12/24/20 @ 16:25 by Reena Sauer RN) Are you a primary career based intervention coordinator to a significant other at home: No Do you presently have visiting nurse or other home services: No Patient Tobacco Use Status: Never used Tobacco Use of substances other than those prescribed or required for medical reasons: No Have you been hit, kicked, punched, or otherwise hurt by someone within the past year? If so, by whom?: No Are you DNR?: No Advance Directives: No Advance Directives Information Provided: Yes Advance Directives on File: No Recently lost weight without trying: No Eating poorly because of decreased appetite: No Nutrition Risks: No Nutritional Risk Meds Allergies Allergy/AdvReac Type Severity Reaction Status Date / Time [place] nut Allergy Severe Facial Verified 12/24/20 16:26 Swelling, itching Seasonal Allergies Allergy Intermediate Nasal Verified 05/16/21 13:57 congestion Home Medications Medication Instructions Recorded Confirmed Last Taken Type acetaminophen 325 mg tablet 650 mg PO Q6H PRN 07/27/20 05/16/21 Unknown History (Tylenol) aspirin 81 mg chewable tablet 81 mg PO 2XW 07/27/20 05/16/21 Unknown History cholecalciferol (vitamin D3) 50 50 mcg PO DAILY 07/27/20 05/16/21 Unknown History mcg (2,000 unit) capsule (Vitamin D3) lisinopril 10 mg tablet 20 mg PO DAILY 07/27/20 05/16/21 Unknown History meclizine 12.5 mg tablet 1 tab PO BEDTIME 07/27/20 05/16/21 Unknown History metformin 500 mg tablet 1 tab PO DAILY 07/27/20 05/16/21 Unknown History omeprazole 20 mg capsule,delayed 1 cap PO 3XW 07/27/20 05/16/21 Unknown History release simvastatin 20 mg tablet 1 tab PO BEDTIME 07/27/20 05/16/21 Unknown History Exam Exam Date and Time: June 10, 2021 0846 Height,Weight and Vital Signs: Height 5 ft 4 in Weight 65.771 kg Pertinent Lab Results Pertinent Lab Results: Laboratory Tests ? 08/30/20 04/20/21 ? 09:10 09:20 WBC ?4.3 L ? Hgb ?14.2 ? Hct ?41.7 L ? Plt Count ?108 L ? Sodium ? ?141 Potassium ? ?4.4 Chloride ? ?107 Carbon Dioxide ? ?27 BUN ? ?17 H Creatinine ? ?0.91 Assessment and Plan Assessment Anesthesia Assessment: Chart Reviewed Final Anesthetic Review Family History of Problems with Anesthesia: No History of Problems with Anesthesia: No Documented by User: Hanny Westfall MD 06/13/21 11:15 [facility] Active Problems Active Problems: No changes in medical history since last visit Past Medical History Medical History (Updated 05/16/21 @ 14:12 by Kera Moody RN) Kerr esophagus BPH (benign prostatic hyperplasia) COVID-19 vaccine series completed Diabetes mellitus GERD (gastroesophageal reflux disease) Hiatal hernia History of anesthesia reaction History of hepatitis B History of skin cancer Hyperlipidemia Hypertension Loud snoring Post-ERCP acute pancreatitis Surgical History Surgical History (Updated 05/16/21 @ 13:55 by Kera Moody RN) History of dental surgery History of esophagogastroduodenoscopy (EGD) History of tracheostomy as a child Hx of appendectomy Hx of cholecystectomy Hx of colonoscopy Hx of endoscopic retrograde cholangiopancreatography Hx of foot surgery Hx of nasal septoplasty Social History Social History (Updated 12/24/20 @ 16:25 by Reena Sauer RN) Are you a primary career based intervention coordinator to a significant other at home: No Do you presently have visiting nurse or other home services: No Patient Tobacco Use Status: Never used Tobacco Use of substances other than those prescribed or required for medical reasons: No Have you been hit, kicked, punched, or otherwise hurt by someone within the past year? If so, by whom?: No Are you DNR?: No Advance Directives: No Advance Directives Information Provided: Yes Advance Directives on File: No Recently lost weight without trying: No Eating poorly because of decreased appetite: No Nutrition Risks: No Nutritional Risk Meds Allergies Allergy/AdvReac Type Severity Reaction Status Date / Time [place] nut Allergy Severe Facial Verified 12/24/20 16:26 Swelling, itching Seasonal Allergies Allergy Intermediate Nasal Verified 05/16/21 13:57 congestion Home Medications Medication Instructions Recorded Confirmed Last Taken Type acetaminophen 325 mg tablet 650 mg PO Q6H PRN 07/27/20 05/16/21 Unknown History (Tylenol) aspirin 81 mg chewable tablet 81 mg PO 2XW 07/27/20 05/16/21 Unknown History cholecalciferol (vitamin D3) 50 50 mcg PO DAILY 07/27/20 05/16/21 Unknown History mcg (2,000 unit) capsule (Vitamin D3) lisinopril 10 mg tablet 20 mg PO DAILY 07/27/20 05/16/21 Unknown History meclizine 12.5 mg tablet 1 tab PO BEDTIME 07/27/20 05/16/21 Unknown History metformin 500 mg tablet 1 tab PO DAILY 07/27/20 05/16/21 Unknown History omeprazole 20 mg capsule,delayed 1 cap PO 3XW 07/27/20 05/16/21 Unknown History release simvastatin 20 mg tablet 1 tab PO BEDTIME 07/27/20 05/16/21 Unknown History Exam Height,Weight and Vital Signs: Height 5 ft 4 in Weight 65.771 kg Vital Signs Temp Pulse Resp BP Pulse Ox 06/13/21 10:13 98.2 F 55 18 161/76 H 98 Pertinent Lab Results Pertinent Lab Results: Laboratory Tests ? 08/30/20 04/20/21 ? 09:10 09:20 WBC ?4.3 L ? Hgb ?14.2 ? Hct ?41.7 L ? Plt Count ?108 L ? Sodium ? ?141 Potassium ? ?4.4 Chloride ? ?107 Carbon Dioxide ? ?27 BUN ? ?17 H Creatinine ? ?0.91 Lab Results 06/13/21 Range/Units 10:13 POC Glucose 117 H (60-115) mg/dL Airway Mallampati Class: II TM Dist: >3cm Neck ROM: Full Partial: Upper Heart: RRR Lungs: CTAB Assessment and Plan Assessment Anesthesia Assessment: Anesthesia Plan Discussed Final Anesthetic Review NPO: Yes ASA Class: III Final Preanesthetic Review: No Changes in Pt Med Stat, Meds/Allgs Chart Reviewed, Consent Obtained/Reviewed and Anes Risks/Benef Reviewed Patient Risk: Intermediate Procedure Risk: Low Assessment/Block/Sedation in SS: Assess/Block/Sedation-SS Anesthetic Plan Anesthetic Plan: MAC: Disposition: Standard PACU
[2021-06-13 10:13] VITALS: BP 161/76; PULSE 55; RESP 18; TEMP 36.8; O2SAT 98
[2021-06-13] MEDS: Lactated Ringers 500 ML 50 ML IV (10:18)
[2021-06-13] MEDS: Tropicamide 1 % Ophth Sol 3 ML BTL 1 DROP EYE-RIGHT ×3 (10:18→10:21)
[2021-06-13] MEDS: Tetracaine HCl/PF 0.5% Oph Sol 4 ML DROPS 1 DROP EYE-RIGHT (10:18)
[2021-06-13] MEDS: Phenylephrine HCL 2.5% Oph SoL 2 ML BOTTLE 1 DROP EYE-RIGHT ×3 (10:18→10:20)
[2021-06-13 10:22] LABS: Glucose, Whole Blood 117 mg/dL (60-115)
--- NOTE | 2021-06-13 11:17 | HO.PNOPHT ---
Ophthalmology Procedure Procedure Date of Service: 06/13/21 Ophthalmology Viscoelastic: Healcorby Duet Dual Pack Pro Ophthalmology Lenses: TECNIS [id number] (23.5) Procedure Notes: PREOPERATIVE DIAGNOSIS: Decreased visual acuity right eye secondary to cataract POSTOPERATIVE DIAGNOSIS: Same PROCEDURE: Right cataract extraction with intraocular lens insertion SURGEON: Kareem Sevilla M.D. ANESTHESIA: Topical/MAC ESTIMATED BLOOD LOSS: None COMPLICATIONS: None After obtaining informed consent, the patient was brought to the operating room suite and placed in the supine position. After adequate sedation per anesthesia, topical drops of Tetracaine were given to the right eye. The eye was then prepped and draped in the usual sterile fashion. The operating room microscope was then positioned over the operative eye and a lid speculum placed. A paracentesis was created. Viscoelastic was then instilled into the anterior chamber. A three plane incision was then created temporally, utilizing a 2.85 mm keratome. Capsulotomy forceps were then utilized to create a circular tear capsulotomy. Hydrodissection and hydrodelineation were carried out until adequate mobilization of the nucleus occurred. Phacoemulsification was then utilized to remove the dense central nucleus followed by removal of the cortical material utilizing the automated aspiration irrigation unit. Viscoelastic was instilled into the posterior capsular bag followed by placement of a posterior chamber intraocular lens without difficulty. The residual Viscoelastic was then removed utilizing the automated IA machine. The wound was checked and found to be watertight. The patient tolerated the procedure well and the lid speculum was removed. Intracameral injection of Vigamox 0.1 mL followed by a subtenon injection of Kenalog-40 0.2 mL were administered. The patient will be seen in the a.m.
[2021-06-13 11:42] VITALS: BP 174/77; PULSE 61; RESP 16; TEMP 36.7; O2SAT 99
== END 2021-06-13 11:54 | disposition home or self-care (01) ==
PROVIDERS: PCP Internal Medicine; Visit Provider Ophthalmology
PROC: (CPT 66985; principal; 2021-06-13 11:30)
DX: H25.11 Age-related nuclear cataract, right eye (principal); H52.4 Presbyopia; I10 Essential (primary) hypertension; E11.9 Type 2 diabetes mellitus without complications; K21.9 Gastro-esophageal reflux disease without esophagitis; Z79.84 Long term (current) use of oral hypoglycemic drugs; Z79.899 Other long term (current) drug therapy; Z87.891 Personal history of nicotine dependence
CPT/HCPCS: 66984; 82947; J2405; J3010; J3300; V2632

== ENCOUNTER 2021-07-11 12:10 | Outpatient (REF) | payer MEDICARE, SELFPAY ==
--- NOTE | ~2021-07-11 | XR_ITS ---
EXAMINATION: XR RIBS, BILATERAL CLINICAL INFORMATION: Fall, trauma, bilateral rib pain COMPARISON: Chest radiographs 07/08/2019, 09/29/2011 TECHNIQUE: Frontal view chest and 4 views of the ribs are obtained for a total of 5 views. FINDINGS: There is no visible rib fracture or rib destructive process. There is mild dextrocurvature thoracic spine with multilevel degenerative changes. The lungs are clear. There is no pneumothorax or pleural reaction, airspace opacity, or effusion. The heart is normal in size. The hilar and mediastinal contours and bony structures are unremarkable. XR/XR ribs BI min 4V w CXR1V IMPRESSION: No visible rib fracture. No pneumothorax, infiltrate, or effusion.
== END 2021-07-11 12:11 | disposition home or self-care (01) ==
LOC: HO.XRAY 12:10
PROVIDERS: PCP Internal Medicine; Visit Provider Internal Medicine
DX: R07.9 Chest pain, unspecified (principal); Z91.81 History of falling
CPT/HCPCS: 71111

== ENCOUNTER 2021-11-01 09:17 | Outpatient (REF) | payer MEDICARE, SELFPAY ==
[2021-11-01 10:24] LABS: MANUAL DIFF FLAG NO
[2021-11-01 10:30] LABS: Basophils Percent Auto 0.8 % (0-2); Eosinophils Absolute Auto 0.2 X10*3/uL (0.0-0.4); Eosinophils Percent Auto 5.8 % (0-4); Hematocrit 36.8 % (42.0-52.0); Hemoglobin 12.2 g/dl (14.0-18.0); Imm Gran Abs Auto 0.01 X10*3/uL (0.00-0.03); Imm Gran Pct Auto 0.3 % (0.0-0.4); Lymphocytes Absolute Auto 0.9 X10*3/uL (1.2-4.9); Lymphocytes Percent Auto 25.5 % (20-40); Mean Corpuscular HGB Conc 33.2 g/dl (31.0-36.0); Mean Corpuscular Hemoglobin 33.2 pg (27.0-33.0); Monocytes Absolute Auto 0.4 X10*3/uL (0.1-1.2); Monocytes Percent Auto 9.6 % (2-11); Neutrophils Absolute Auto 2.1 x10*3/uL (2.0-8.3); Red Blood Count 3.68 X10*6/uL (4.60-5.80); Red Cell Distribution Width 12.8 % (11.0-16.0); White Blood Count 3.7 X10*3/uL (4.8-10.8)
[2021-11-01 10:40] LABS: Estimated Average Glucose 128 mg/dL; Hemoglobin A1c % 6.1 %
[2021-11-01 10:56] LABS: Alanine Aminotransferase 59 U/L (0-40); Albumin Level 3.8 g/dL (3.5-5.0); Alkaline Phosphatase 210 U/L (39-117); Anion Gap 13 (12-20); Aspartate Amino Transferase 64 U/L (5-37); Bilirubin Total 2.2 mg/dL (0.0-1.0); Blood Urea Nitrogen 20 mg/dL (9-16); Calcium 8.9 mg/dL (8.4-10.2); Carbon Dioxide 23 mmol/L (22-29); Chloride 108 mmol/L (96-108); Estimated Glomerular Filt Rate > 60; Glucose Random 143 mg/dL (60-115); Platelet Count 68 X10*3/uL (160-400); Potassium 4.5 mmol/L (3.3-5.1); Sodium 139 mmol/L (135-145); Total Protein 6.7 g/dL (6.5-8.0)
[2021-11-01 10:57] LABS: Mean Platelet Volume 10.9 fL (9.4-12.4)
[2021-11-01 10:59] LABS: Creatinine Urine 74.84 mg/dL; Microalbum/Creatinine Ratio Ur 9.3 ug/mg cr
== END 2021-11-01 09:18 | disposition home or self-care (01) ==
LOC: HO.10HDL 09:17
PROVIDERS: Visit Provider Internal Medicine
DX: I10 Essential (primary) hypertension (principal); E11.9 Type 2 diabetes mellitus without complications
CPT/HCPCS: 36415; 80053; 82043; 83036; 85025

== ENCOUNTER 2022-02-10 08:54 | Outpatient (REF) | payer MEDICARE, SELFPAY ==
[2022-02-10 09:03] LABS: MANUAL DIFF FLAG NO
[2022-02-10 09:18] LABS: Eosinophils Absolute Auto 0.2 X10*3/uL (0.0-0.4); Eosinophils Percent Auto 3.9 % (0-4); Hematocrit 37.3 % (42.0-52.0); Hemoglobin 12.6 g/dl (14.0-18.0); Imm Gran Abs Auto 0.02 X10*3/uL (0.00-0.03); Imm Gran Pct Auto 0.5 % (0.0-0.4); Lymphocytes Percent Auto 23.6 % (20-40); Mean Corpuscular HGB Conc 33.8 g/dl (31.0-36.0); Mean Corpuscular Hemoglobin 32.8 pg (27.0-33.0); Mean Corpuscular Volume 97.1 fL (80.0-98.0); Mean Platelet Volume 10.6 fL (9.4-12.4); Monocytes Absolute Auto 0.4 X10*3/uL (0.1-1.2); Monocytes Percent Auto 8.6 % (2-11); Neutrophils Absolute Auto 2.5 x10*3/uL (2.0-8.3); Neutrophils Percent Auto 62.4 % (45-73); Platelet Count 94 X10*3/uL (160-400); Red Blood Count 3.84 X10*6/uL (4.60-5.80); Red Cell Distribution Width 12.9 % (11.0-16.0); White Blood Count 4.1 X10*3/uL (4.8-10.8)
[2022-02-10 09:26] LABS: Estimated Average Glucose 134 mg/dL; Hemoglobin A1c % 6.3 %
[2022-02-10 09:52] LABS: Alanine Aminotransferase 54 U/L (0-40); Albumin Level 3.8 g/dL (3.5-5.0); Alkaline Phosphatase 268 U/L (39-117); Anion Gap 15 (12-20); Aspartate Amino Transferase 56 U/L (5-37); Bilirubin Total 3.2 mg/dL (0.0-1.0); Blood Urea Nitrogen 14 mg/dL (9-16); Calcium 9.1 mg/dL (8.4-10.2); Carbon Dioxide 27 mmol/L (22-29); Chloride 105 mmol/L (96-108); Estimated Glomerular Filt Rate > 60; Glucose Random 140 mg/dL (60-115); Iron 162 mcg/dL (45-160); Percent Iron Saturation 49 % (15-50); Potassium 4.6 mmol/L (3.3-5.1); Sodium 142 mmol/L (135-145); Total Iron Binding Capacity 328 mcg/dL (228-428); Unsaturated Iron Binding 166 ug/dL
== END 2022-02-10 08:55 | disposition home or self-care (01) ==
LOC: HO.LAB 08:54
PROVIDERS: PCP Internal Medicine; Visit Provider Internal Medicine
DX: I10 Essential (primary) hypertension (principal); E11.9 Type 2 diabetes mellitus without complications; D64.9 Anemia, unspecified; R79.89 Other specified abnormal findings of blood chemistry
CPT/HCPCS: 36415; 80053; 83036; 83540; 85025

== ENCOUNTER 2022-02-27 07:53 | Day surgery (SDC) | payer MEDICARE, SELFPAY ==
[2022-02-27 08:05] VITALS: BP 156/62; PULSE 65; RESP 16; TEMP 36.1; O2SAT 97; BMI 24.2
[2022-02-27 08:16] LABS: Glucose, Whole Blood 98 mg/dL (60-115)
--- NOTE | 2022-02-27 09:12 | HO.ANESPROP2 ---
FORMERLY [facility] Past Medical History Medical History (Updated 05/16/21 @ 14:12 by Kera Moody RN) Kerr esophagus BPH (benign prostatic hyperplasia) COVID-19 vaccine series completed Diabetes mellitus GERD (gastroesophageal reflux disease) Hiatal hernia History of anesthesia reaction History of hepatitis B History of skin cancer Hyperlipidemia Hypertension Loud snoring Post-ERCP acute pancreatitis Family History Family history of problems with anesthesia: No Surgical History Surgical History (Updated 05/16/21 @ 13:55 by Kera Moody RN) History of dental surgery History of esophagogastroduodenoscopy (EGD) History of tracheostomy as a child Hx of appendectomy Hx of cholecystectomy Hx of colonoscopy Hx of endoscopic retrograde cholangiopancreatography Hx of foot surgery Hx of nasal septoplasty History of Problems with Anesthesia: No Social History Social History (Updated 12/24/20 @ 16:25 by Reena Sauer RN) Are you a primary child care counselor to a significant other at home: No Do you presently have visiting nurse or other home services: No Patient Tobacco Use Status: Former Tobacco user Quit Date: 1971 Use of substances other than those prescribed or required for medical reasons: No Are you DNR?: No Advance Directives: No Advance Directives Information Provided: Yes Meds Allergies Allergy/AdvReac Type Severity Reaction Status Date / Time [place] nut Allergy Severe Facial Verified 12/24/20 16:26 Swelling, itching Seasonal Allergies Allergy Intermediate Nasal Verified 05/16/21 13:57 congestion Active Medications: Current Medications Sodium Biphosphate/Sodium Phosphate (Sodium Phosphate,Glenn-Dibasic 133 Ml Enema) 133 ml MS ONCE PRN PRN Reason: Poor Colonoscopy Prep Results Home Medications Medication Instructions Recorded Confirmed Last Taken Type acetaminophen 325 mg tablet 650 mg PO Q6H PRN Pain 07/27/20 05/16/21 Unknown History (Tylenol) aspirin 81 mg chewable tablet 81 mg PO 2XW 07/27/20 05/16/21 02/06/22 History cholecalciferol (vitamin D3) 50 50 mcg PO DAILY 07/27/20 05/16/21 Unknown History mcg (2,000 unit) capsule (Vitamin D3) lisinopril 10 mg tablet 20 mg PO DAILY 07/27/20 05/16/21 02/27/22 History meclizine 12.5 mg tablet 1 tab PO BEDTIME 07/27/20 05/16/21 Unknown History metformin 500 mg tablet 1 tab PO DAILY 07/27/20 05/16/21 Unknown History omeprazole 20 mg capsule,delayed 1 cap PO 3XW 07/27/20 05/16/21 Unknown History release simvastatin 20 mg tablet 1 tab PO BEDTIME 07/27/20 05/16/21 Unknown History Exam Exam Date and Time: February 27, 2022 0912 Height,Weight and Vital Signs: Height 5 ft 4 in Weight 63.957 kg Last Vital Signs Temp 97.0 F 02/27/22 08:05 Pulse 65 02/27/22 08:05 Resp 16 02/27/22 08:05 BP 156/62 H 02/27/22 08:05 Pulse Ox 97 02/27/22 08:05 O2 Del Method 02/27/22 08:05 Pertinent Lab Results Pertinent Lab Results: Laboratory Tests 02/27/22 08:12 POC Glucose 98 Airway Mallampati Class: II TM Dist: >3cm Neck ROM: Full Assessment and Plan Assessment Anesthesia Assessment: Anesthesia Plan Discussed and Chart Reviewed Final Anesthetic Review Family History of Problems with Anesthesia: No History of Problems with Anesthesia: No NPO: Yes ASA Class: III Final Preanesthetic Review: No Changes in Pt Med Stat, Meds/Allgs Chart Reviewed, Consent Obtained/Reviewed and Anes Risks/Benef Reviewed Patient Risk: Intermediate Procedure Risk: Low Anesthetic Plan Anesthetic Plan: MAC: Disposition: Standard PACU
[2022-02-27 09:45] VITALS: BP 135/71; PULSE 66; RESP 16; TEMP 36.4; O2SAT 99
--- NOTE | 2022-02-27 09:56 | P.BOP_ITS ---
Brief Operative Note Date of Service: 02/27/22 Pre-op diagnosis: Kerr's, Screening Post-op diagnosis: other (Esophageal varices, Diverticulosis) Procedure: EGD with biopsy, Colonoscopy to the cecum and TI Surgeon: Sd Phillips Anesthesia: MAC Was an Machine Package Sealer used for this Procedure?: No Estimated blood loss (mL): 2.0 Pathology: other (A. Gastric antrum) Condition: stable Disposition: PACU
[2022-02-27 10:00] VITALS: BP 122/64; PULSE 64; RESP 18; TEMP 36.1; O2SAT 99
[2022-02-27 10:15] VITALS: BP 142/63; PULSE 69; RESP 18; TEMP 36.4; O2SAT 98
--- NOTE | 2022-02-27 21:02 | OP_ITS ---
SURGEON: Sd Phillips MD INDICATIONS: The patient presents for evaluation of underlying history of Kerr's esophagus with previous low-grade dysplasia, personal history of tubular adenoma of the colon, and need for colorectal cancer screening. Full consent has been obtained from him for this, including risks of bleeding and perforation. PREOPERATIVE DIAGNOSIS: History of Kerr's esophagus, low-grade dysplasia, personal history of tubular adenoma of the colon, and colorectal cancer screening. POSTOPERATIVE DIAGNOSIS: History of Kerr's esophagus, low-grade dysplasia, personal history of tubular adenoma of the colon, colorectal cancer screening, esophageal varices, gastritis and gastropathy, diverticulosis, internal hemorrhoids. PROCEDURE PERFORMED: Esophagogastroduodenoscopy with biopsies, and colonoscopy to the cecum and terminal ileum. ESTIMATED BLOOD LOSS: COMPLICATIONS: ANESTHESIA: Monitored anesthesia care. ASSISTANTS: SPECIMENS: DESCRIPTION OF PROCEDURE: The patient was placed in the left lateral decubitus position. The [employer] video gastroscope was passed in the posterior oropharynx and upper esophagus under direct vision. The scope was passed slowly to the distal esophagus. The gastroesophageal junction appeared at 33 cm. There were some very small, less than 1 cm areas of Kerr's appearing mucosa, but without esophagitis nor mass. However, extending from the EG junction to approximately 25 cm were chains of esophageal varices. The scope was advanced to the pylorus, and the duodenum was cannulated to the descending portion. The duodenum including the bulb appeared normal without mass or ulceration. The scope was withdrawn back in the stomach. The gastric antrum and body had some changes of a gastritis and some mild gastropathy. The scope was retroflexed visualizing the proximal stomach carefully, which appeared also consistent with a gastropathy, but without varices, mass, nor ulceration. The scope was straightened. Two biopsies were obtained from the antrum. The scope was withdrawn back in the esophagus. The esophageal varices appeared to be a 2 to 3+, but without any sign of bleeding. There were 3 chains. There was no gross evidence of esophagitis. Given these findings, I did not obtain biopsies nor brushings from the distal small area of Kerr's mucosa. The scope was withdrawn from the patient. He was turned around for the colonoscopy. The digital rectal exam revealed no abnormalities. The Olympus video pediatric colonoscope was entered into the rectum and advanced to the cecum by turning him into the supine position and with abdominal wall pressure. Once in the cecum, I did identify a normal-appearing cecal pouch with appendiceal orifice and a normal-appearing ileocecal valve. The terminal ileum was cannulated and appeared normal. The scope was withdrawn back into the colon. The entire cecum and the ileocecal valve appeared normal. The scope was slowly withdrawn assessing all mucosal surfaces carefully. Preparation was excellent. I did not visualize any sign of polyps, colitis, or angiodysplasia. Some of the colonic mucosa did appear somewhat edematous and friable. There was a moderate amount of sigmoid diverticulosis. In the rectum, the scope was retroflexed visualizing small internal hemorrhoids, but no other pathology. The rectal mucosa appeared normal. The scope was straightened and withdrawn from the patient. He tolerated the procedures well and was returned to the recovery area in stable condition. IMPRESSION: 1. Esophageal varices. 2. History of Kerr's esophagus. 3. Small hiatal hernia. 4. Gastritis and gastropathy. 5. Diverticulosis. 6. Internal hemorrhoids. PLAN: The results of the biopsies will be checked. He will continue his omeprazole and was advised to use it daily. Instructions have been given that he should not use any aspirin or NSAIDs long-term. In reviewing his chart, he has not had any imaging of his liver in quite some time. However, recent laboratories, as of February 10 actually revealed a white blood cell count of 4.1, hemoglobin 12.6, platelets 94,000, total bilirubin is 3.2, AST 56, ALT 54, and alkaline phosphatase 268, with an albumin of 3.8. He did have a normal iron saturation on February 10 as well. He had negative hepatitis serologies many years ago. My plan will be to obtain an ultrasound with Doppler studies of the portal vein and elastography, as well as to have him undergo blood work for complete liver workup. As far as I know, he does not have a history of alcohol use, but I shall speak with him and his about that again. At this point, I would not recommend any further biopsies or brushings of the small area of Kerr's esophagus, as the specimens from just a year and a half ago were negative for dysplasia. He will be seen in followup in the office as well. This has all been discussed with his . MD YOANA Spangler/JOSE / [id number] MTDD
== END 2022-02-27 10:52 | disposition home or self-care (01) ==
PROVIDERS: PCP Internal Medicine; Visit Provider Internal Medicine
PROC: (CPT 43239; principal; 2022-02-27 09:40)
DX: Z12.11 Encounter for screening for malignant neoplasm of colon (principal); Z86.010 Personal history of colon polyps; K57.30 Diverticulosis of large intestine without perforation or abscess without bleeding; K64.8 Other hemorrhoids; K22.710 Barrett's esophagus with low grade dysplasia; I85.00 Esophageal varices without bleeding; K21.9 Gastro-esophageal reflux disease without esophagitis; K29.50 Unspecified chronic gastritis without bleeding; I10 Essential (primary) hypertension; E11.9 Type 2 diabetes mellitus without complications; Z79.84 Long term (current) use of oral hypoglycemic drugs; Z79.82 Long term (current) use of aspirin; Z79.899 Other long term (current) drug therapy; E78.5 Hyperlipidemia, unspecified; Z87.891 Personal history of nicotine dependence
CPT/HCPCS: 43239; G0105; 82947; 88305; 88342

== ENCOUNTER 2022-03-02 08:54 | Outpatient (REF) | payer MEDICARE, SELFPAY ==
--- NOTE | ~2022-03-02 | US_ITS ---
EXAMINATION: US ABDOMEN COMPLETE CLINICAL INFORMATION: Pancytopenia. Portal hypertension. Splenomegaly.. COMPARISON: None TECHNIQUE: Real-time imaging of the abdominal viscera. FINDINGS: PANCREAS: Not well seen due to bowel gas. ABDOMINAL AORTA: The proximal and distal segments are normal in caliber. The mid segment is obscured by gas. Mild atherosclerosis noted. INFERIOR VENA CAVA: Visualized portions are normal. LIVER: Limited evaluation. The left lobe is not well seen. There is a nodular hepatic Contour. Coarse echogenicity. No focal hepatic lesion. There is no intrahepatic biliary duct dilatation seen. The main portal vein is patent. GALLBLADDER: Surgically absent. COMMON BILE DUCT: Normal in caliber measuring 0.3 cm in diameter. RIGHT KIDNEY: Normal. No hydronephrosis. No renal calculi or focal parenchymal lesions. The kidney measures 9.8 cm in maximum dimension. LEFT KIDNEY: Normal. No hydronephrosis. No renal calculi or focal parenchymal lesions. The kidney measures 10.3 cm in maximum dimension. SPLEEN: Enlarged. The spleen measures 18.6 cm in maximum dimension. FREE FLUID: Small volume ascites. US/US abdomen complete IMPRESSION: Cirrhotic liver. Splenomegaly. Small volume ascites.
[2022-03-02 09:12] LABS: MANUAL DIFF FLAG NO
[2022-03-02 09:45] LABS: Basophils Percent Auto 0.7 % (0-2); Eosinophils Absolute Auto 0.2 X10*3/uL (0.0-0.4); Eosinophils Percent Auto 4.5 % (0-4); Hematocrit 38.5 % (42.0-52.0); Imm Gran Abs Auto 0.02 X10*3/uL (0.00-0.03); Imm Gran Pct Auto 0.5 % (0.0-0.4); Immature Retic Fraction 9.5 % (2.3-13.4); Lymphocytes Absolute Auto 0.9 X10*3/uL (1.2-4.9); Lymphocytes Percent Auto 21.4 % (20-40); Mean Corpuscular HGB Conc 33.8 g/dl (31.0-36.0); Mean Corpuscular Volume 97.7 fL (80.0-98.0); Mean Platelet Volume 10.5 fL (9.4-12.4); Monocytes Absolute Auto 0.4 X10*3/uL (0.1-1.2); Monocytes Percent Auto 8.5 % (2-11); Neutrophils Absolute Auto 2.8 x10*3/uL (2.0-8.3); Neutrophils Percent Auto 64.4 % (45-73); Red Blood Count 3.94 X10*6/uL (4.60-5.80); Red Cell Distribution Width 13.2 % (11.0-16.0); Retic HGB Equivalent 38.7 pg (30.0-35.0); Reticulocyte Percent 1.2 % (0.5-1.8); Reticulocytes Absolute 0.047 X10*6/uL (0.026-0.095); White Blood Count 4.3 X10*3/uL (4.8-10.8)
[2022-03-02 09:51] LABS: Platelet Count 83 X10*3/uL (160-400)
[2022-03-02 10:02] LABS: Alanine Aminotransferase 46 U/L (0-40); Albumin Level 3.8 g/dL (3.5-5.0); Alkaline Phosphatase 254 U/L (39-117); Anion Gap 15 (12-20); Aspartate Amino Transferase 54 U/L (5-37); Bilirubin Total 2.2 mg/dL (0.0-1.0); Blood Urea Nitrogen 14 mg/dL (9-16); Calcium 9.2 mg/dL (8.4-10.2); Carbon Dioxide 26 mmol/L (22-29); Chloride 106 mmol/L (96-108); Estimated Glomerular Filt Rate > 60; Glucose Random 146 mg/dL (60-115); Potassium 4.4 mmol/L (3.3-5.1); Sodium 143 mmol/L (135-145); Total Protein 7.1 g/dL (6.5-8.0)
[2022-03-02 10:27] LABS: Ferritin 56 ng/mL (20-250)
== END 2022-03-02 08:55 | disposition home or self-care (01) ==
LOC: HO.US 08:54
PROVIDERS: PCP Internal Medicine; Visit Provider Internal Medicine Medical Oncology
DX: D61.818 Other pancytopenia (principal); R16.1 Splenomegaly, not elsewhere classified; K76.6 Portal hypertension
CPT/HCPCS: 36415; 76700; 80053; 82728; 85025; 85045

== ENCOUNTER 2022-03-21 08:41 | Outpatient (REF) | payer MEDICARE, SELFPAY ==
[2022-03-21 08:58] LABS: MANUAL DIFF FLAG NO
[2022-03-21 08:59] LABS: Basophils Percent Auto 1.1 % (0-2); Eosinophils Absolute Auto 0.3 X10*3/uL (0.0-0.4); Eosinophils Percent Auto 6.6 % (0-4); Hematocrit 39.8 % (42.0-52.0); Hemoglobin 13.3 g/dl (14.0-18.0); Imm Gran Abs Auto 0.01 X10*3/uL (0.00-0.03); Imm Gran Pct Auto 0.3 % (0.0-0.4); Lymphocytes Percent Auto 26.6 % (20-40); Mean Corpuscular HGB Conc 33.4 g/dl (31.0-36.0); Mean Corpuscular Hemoglobin 32.6 pg (27.0-33.0); Mean Corpuscular Volume 97.5 fL (80.0-98.0); Mean Platelet Volume 9.4 fL (9.4-12.4); Monocytes Absolute Auto 0.3 X10*3/uL (0.1-1.2); Monocytes Percent Auto 7.4 % (2-11); Neutrophils Absolute Auto 2.2 x10*3/uL (2.0-8.3); Platelet Count 71 X10*3/uL (160-400); Red Blood Count 4.08 X10*6/uL (4.60-5.80); Red Cell Distribution Width 13.2 % (11.0-16.0); White Blood Count 3.8 X10*3/uL (4.8-10.8)
[2022-03-21 09:04] LABS: INTERNATIONAL NORM RATIO 1.1 (0.9-1.1); Prothrombin Time 12.7 SEC (10.0-13.1)
[2022-03-21 09:36] LABS: Alanine Aminotransferase 52 U/L (0-40); Albumin Level 3.9 g/dL (3.5-5.0); Alkaline Phosphatase 229 U/L (39-117); Aspartate Amino Transferase 53 U/L (5-37); Bilirubin Total 2.6 mg/dL (0.0-1.0); Iron 156 mcg/dL (45-160); Percent Iron Saturation 44 % (15-50); Total Iron Binding Capacity 358 mcg/dL (228-428); Total Protein 7.3 g/dL (6.5-8.0); Unsaturated Iron Binding 202 ug/dL
[2022-03-21 09:57] LABS: Ferritin 51 ng/mL (20-250)
[2022-03-21 09:59] LABS: HBS Num1 37.48 mIU/mL (0-7.99); HBsAGNum1 0.25 S/CO (0.00-0.99); Hepatitis B Surface Antigen Negative (Negative); ~Hepatitis B Surface Antibody REACTIVE (Nonreactive); ~Hepatitis C Antibody Nonreactive (Nonreactive)
[2022-03-21 14:26] LABS: HBc Num1 8.81 S/CO (0.00-0.79)
[2022-03-21 14:31] LABS: HBc Num2 8.41 S/CO
[2022-03-21 14:32] LABS: HBc Num3 8.81 S/CO; Hepatitis B Core Antibody Reactive (Nonreactive)
[2022-03-22 04:39] LABS: Hepatitis A Antibody IgG REACTIVE (Nonreactive); ~Hepatitis A Antibody IgG 10.73 S/CO (0.00-0.99)
[2022-03-23 16:57] LABS: Alpha 1 Anti-trypsin 163 mg/dL (83-199)
[2022-03-27 12:07] LABS: Anti Nuclear Antibody Screen NEGATIVE (NEGATIVE)
[2022-03-27 22:48] LABS: Smooth Muscle Antibody <20 U (<20)
[2022-03-28 00:27] LABS: FIB-ALT 44 U/L (9-46); FIB-Alpha-2-Macroglobulin 318 mg/dL (106-279); FIB-Apolipoprotein A1 183 mg/dL (94-176); FIB-GGT 266 U/L (3-70); FIB-Haptoglobin 27 mg/dL (43-212); FIB-Total Bilirubin 2.3 mg/dL (0.2-1.2); Liver Fibrosis Score 0.95; Liver Fibrosis Stage F4; Nec Inflam Act Grade A1-A2; Nec Inflam Act Score 0.47
[2022-03-28 07:12] LABS: Mitochondrial Antibodies NEGATIVE (NEGATIVE)
== END 2022-03-21 08:42 | disposition home or self-care (01) ==
LOC: HO.LAB 08:41
PROVIDERS: PCP Internal Medicine; Visit Provider Internal Medicine
DX: I85.00 Esophageal varices without bleeding (principal); R79.89 Other specified abnormal findings of blood chemistry
CPT/HCPCS: 36415; 80076; 81596; 82103; 82105; 82728; 83540; 85025; 85610; 86015; 86038; 86039; 86255; 86256; 86704; 86706; 86708; 86803; 87340

== ENCOUNTER 2022-04-12 08:00 | Outpatient (REF) | payer MEDICARE, SELFPAY ==
--- NOTE | ~2022-04-12 | US_ITS ---
EXAMINATION: US ABDOMEN LIMITED WITH LIVER ELASTOGRAPHY CLINICAL INFORMATION: Esophageal varices. Rule out portal vein thrombosis. Splenomegaly. COMPARISON: Previous ultrasound 03/02/[address] of the abdomen and pelvis June 2021 TECHNIQUE: Real-time imaging of the abdominal viscera. Noninvasive ultrasound liver fibrosis assessment is performed using [employer] point quantification shear wave elastography (2D-SWE) with a C5-2 MHz transducer. Multiple elastography samples are obtained. Doppler color and grayscale evaluation of the liver vasculature including waveform spectral analysis. FINDINGS: PANCREAS: Not visualized due to bowel gas LIVER: The left lobe of the liver is not well visualized. Liver echotexture is increased and heterogeneous suggestive of hepatocellular disease. The contour of the liver is irregular or scalloped suggestive of cirrhosis. No focal liver lesion seen. No biliary duct dilatation. The right lobe measures 14 cm in length. The left lobe is small and difficult to measure. Portal flow is normal/ Shear wave liver elastography median stiffness is 2.3 m/s (reference: normal median stiffness is 1.3 m/s or less). IQR/median stiffness to assess sampling precision is 0.1 (reference: good quality data set is IQR/median stiffness of 0.15 or less). GALLBLADDER: Surgically removed COMMON BILE DUCT: Normal in caliber measuring 0.4 cm in diameter. RIGHT KIDNEY: Normal. No hydronephrosis. No renal calculi or focal parenchymal lesions. The kidney measures 9.3 cm in maximum dimension. FREE FLUID: Small amount of ascites. Liver Doppler exam: The extrahepatic, main and right portal veins are patent with appropriate hepatopedal flow. The left portal vein is not visualized. The main and right hepatic arteries are patent with normal waveforms. Main hepatic artery peak systolic velocity is normal measuring 56 cm/s. The left hepatic artery is not seen. The right and middle hepatic veins are normal-appearing with normal waveforms. Left hepatic vein is not definitely identified. The splenic vein is patent with appropriate hepatopedal flow. The spleen is enlarged measuring 20 cm in length. Small amount of ascites. US/US abdomen erickson w elastography IMPRESSION: 1. Impression: Cirrhotic-appearing liver. Small amount of ascites. Nonvisualization of the pancreas. Enlarged spleen. 2. Liver elastography: Adequate liver sampling. Rules in compensated advanced chronic liver disease. 3. Left lobe liver vasculature not well-visualized otherwise unremarkable liver Doppler exam. REFERENCE: Society of Radiologists in Ultrasound Liver Stiffness Thresholds (2020): LIVER STIFFNESS THRESHOLDS: *Liver Stiffness equal or less than 1.3 m/s: High probability of being normal. *Liver Stiffness less than 1.7 m/s: In the absence of other known clinical signs, rules out compensated advanced chronic liver disease. *Liver Stiffness 1.7-2.1 m/s: Suggestive of compensated advanced chronic liver disease but need further test for confirmation. *Liver Stiffness over 2.1 m/s: Rules in compensated advanced chronic liver disease. *Liver Stiffness over 2.4 m/s: Suggestive of clinically significant portal hypertension. QUALITY OF DATA SET: *IQR/Median value equal or less than 0.15 implies a quality data set. *IQR/Median value over 0.15 implies a poor quality data set. SIGNIFICANT CHANGE FROM PRIOR EXAM: Significant change if liver stiffness measurement is 10% or greater from prior exam. OTHER CONSIDERATIONS: The stage of liver fibrosis may be overestimated in the setting of acute hepatitis, liver inflammation, elevated liver function tests, hepatic vascular congestion, obstructive cholestasis, non-fasting state, and infiltrative diseases such as amyloidosis and lymphoma. In some patients with NAFLD, the liver stiffness thresholds for compensated advanced chronic liver disease may be lower. In causes other than viral hepatitis and NAFLD, liver stiffness thresholds are not well established.
== END 2022-04-12 08:01 | disposition home or self-care (01) ==
LOC: HO.US 08:00
PROVIDERS: PCP Internal Medicine; Visit Provider Internal Medicine
DX: I85.00 Esophageal varices without bleeding (principal); R79.89 Other specified abnormal findings of blood chemistry; K74.60 Unspecified cirrhosis of liver
CPT/HCPCS: 76705; 76981; 93975

== ENCOUNTER 2022-05-10 14:00 | Outpatient (REF) | payer MEDICARE, SELFPAY ==
[2022-05-10 14:17] LABS: MANUAL DIFF FLAG NO
[2022-05-10 15:33] LABS: Basophils Percent Auto 0.8 % (0-2); Eosinophils Absolute Auto 0.1 X10*3/uL (0.0-0.4); Hematocrit 34.8 % (42.0-52.0); Hemoglobin 11.6 g/dl (14.0-18.0); Imm Gran Abs Auto 0.01 X10*3/uL (0.00-0.03); Imm Gran Pct Auto 0.3 % (0.0-0.4); Lymphocytes Absolute Auto 0.9 X10*3/uL (1.2-4.9); Lymphocytes Percent Auto 23.5 % (20-40); Mean Corpuscular HGB Conc 33.3 g/dl (31.0-36.0); Mean Corpuscular Hemoglobin 32.5 pg (27.0-33.0); Mean Corpuscular Volume 97.5 fL (80.0-98.0); Mean Platelet Volume 10.7 fL (9.4-12.4); Monocytes Absolute Auto 0.3 X10*3/uL (0.1-1.2); Monocytes Percent Auto 7.7 % (2-11); Neutrophils Absolute Auto 2.3 x10*3/uL (2.0-8.3); Neutrophils Percent Auto 64.7 % (45-73); Red Blood Count 3.57 X10*6/uL (4.60-5.80); Red Cell Distribution Width 12.6 % (11.0-16.0); White Blood Count 3.6 X10*3/uL (4.8-10.8)
[2022-05-10 15:48] LABS: Platelet Count 74 X10*3/uL (160-400)
[2022-05-10 16:01] LABS: Alanine Aminotransferase 36 U/L (0-40); Albumin Level 3.7 g/dL (3.5-5.0); Alkaline Phosphatase 206 U/L (39-117); Aspartate Amino Transferase 43 U/L (5-37); Bilirubin Direct 0.6 mg/dL (0.0-0.5); Bilirubin Total 1.7 mg/dL (0.0-1.0); Total Protein 6.8 g/dL (6.5-8.0)
[2022-05-12 20:39] LABS: Ceruloplasmin 28 mg/dL (18-36)
== END 2022-05-10 14:01 | disposition home or self-care (01) ==
LOC: HO.LAB 14:00
PROVIDERS: PCP Internal Medicine; Visit Provider Internal Medicine
DX: I85.00 Esophageal varices without bleeding (principal); K74.60 Unspecified cirrhosis of liver; R79.89 Other specified abnormal findings of blood chemistry
CPT/HCPCS: 36415; 80076; 82390; 85025

== ENCOUNTER 2022-07-04 08:10 | Outpatient (REF) | payer MEDICARE, SELFPAY ==
[2022-07-04 08:23] LABS: MANUAL DIFF FLAG NO
[2022-07-04 08:44] LABS: Basophils Percent Auto 0.7 % (0-2); Eosinophils Absolute Auto 0.3 X10*3/uL (0.0-0.4); Eosinophils Percent Auto 6.9 % (0-4); Hematocrit 35.9 % (42.0-52.0); Immature Retic Fraction 5.8 % (2.3-13.4); Lymphocytes Absolute Auto 1.2 X10*3/uL (1.2-4.9); Mean Corpuscular HGB Conc 33.4 g/dl (31.0-36.0); Mean Corpuscular Hemoglobin 32.5 pg (27.0-33.0); Mean Corpuscular Volume 97.3 fL (80.0-98.0); Mean Platelet Volume 10.5 fL (9.4-12.4); Monocytes Absolute Auto 0.4 X10*3/uL (0.1-1.2); Monocytes Percent Auto 8.9 % (2-11); Neutrophils Absolute Auto 2.2 x10*3/uL (2.0-8.3); Neutrophils Percent Auto 54.5 % (45-73); Red Blood Count 3.69 X10*6/uL (4.60-5.80); Red Cell Distribution Width 12.9 % (11.0-16.0); Retic HGB Equivalent 37.8 pg (30.0-35.0); Reticulocyte Percent 1.1 % (0.5-1.8); Reticulocytes Absolute 0.042 X10*6/uL (0.026-0.095)
[2022-07-04 08:45] LABS: Platelet Count 75 X10*3/uL (160-400)
[2022-07-04 08:53] LABS: Estimated Average Glucose 143 mg/dL; Hemoglobin A1c % 6.6 %
[2022-07-04 09:11] LABS: Anion Gap 11 (12-20); Blood Urea Nitrogen 17 mg/dL (9-16); Calcium 8.6 mg/dL (8.4-10.2); Carbon Dioxide 25 mmol/L (22-29); Chloride 108 mmol/L (96-108); Estimated Glomerular Filt Rate > 60; Glucose Random 144 mg/dL (60-115); Iron 72 mcg/dL (45-160); Percent Iron Saturation 23 % (15-50); Potassium 4.3 mmol/L (3.3-5.1); Sodium 140 mmol/L (135-145); Total Iron Binding Capacity 307 mcg/dL (228-428); Unsaturated Iron Binding 235 ug/dL
[2022-07-04 09:41] LABS: Creatinine Urine 73.15 mg/dL; Microalbum/Creatinine Ratio Ur 8.2 ug/mg cr
== END 2022-07-04 08:11 | disposition home or self-care (01) ==
LOC: HO.LAB 08:10
PROVIDERS: PCP Internal Medicine; Visit Provider Internal Medicine
DX: E11.9 Type 2 diabetes mellitus without complications (principal); D64.9 Anemia, unspecified
CPT/HCPCS: 36415; 80048; 82043; 83036; 83540; 85025; 85045

== ENCOUNTER 2022-07-05 11:00 | Outpatient (REF) | payer MEDICARE, SELFPAY ==
--- NOTE | ~2022-07-05 | XR_ITS ---
EXAMINATION: XR CHEST CLINICAL INFORMATION: History COVID COMPARISON: Chest and ribs 07/11/2021, chest radiographs 07/08/2019. TECHNIQUE: 2 views of the chest were obtained. FINDINGS: There is mild coarsening of the bronchiolar markings when compared with prior studies. There is no hyperinflation. No airspace consolidation or groundglass opacity or effusion. The costophrenic sulci are clear. The heart is normal in size and the hilar and contours and bony structures are unremarkable. XR/XR chest 2V IMPRESSION: Mild coarsening bronchiolar markings. No airspace consolidation, groundglass opacity, or effusion.
== END 2022-07-05 11:01 | disposition home or self-care (01) ==
LOC: HO.XRAY 11:00
PROVIDERS: PCP Internal Medicine; Visit Provider Internal Medicine
DX: D61.818 Other pancytopenia (principal); Z86.16 Personal history of COVID-19
CPT/HCPCS: 71046

== ENCOUNTER 2022-07-17 13:04 | Outpatient (REF) | payer MEDICARE, SELFPAY ==
--- NOTE | ~2022-07-17 | CT_ITS ---
EXAMINATION: CT ABDOMEN AND PELVIS WITHOUT CONTRAST CLINICAL INFORMATION: Cirrhosis from fatty liver. COMPARISON: Ultrasound of 04/12/[address] examination of 07/17/2013. TECHNIQUE: Multidetector volumetric imaging was performed from the superior aspect of the liver through the pubic symphysis. Sagittal and coronal reformatted images were obtained on the technologist's workstation. This CT examination was performed using dose optimization techniques as appropriate, variously including the following: *Automated exposure control *Adjustment of mA and/or kV according to patient size (this includes techniques or standardized protocols for targeted exams where dose is matched to indication/reason for exam; i.e. extremities or head) *Use of iterative reconstruction technique DLP: 462 mGy-cm FINDINGS: LUNG BASES: No confluent parenchymal disease identified. No pericardial effusion. Coronary artery calcification is present. There is trace left pleural fluid. LIVER, GALLBLADDER, AND BILIARY TREE: The liver appears small with scalloped margins consistent with cirrhosis. No focal mass is appreciated and no intrahepatic bile duct dilatation is seen. The gallbladder is not identified and is likely surgically removed. PANCREAS: No pancreatic mass is appreciated. No pancreatic ductal dilatation is seen. SPLEEN: Splenomegaly is present. ADRENAL GLANDS: Unremarkable. KIDNEYS AND URETERS: The kidneys are normal in size, shape, and attenuation. No hydronephrosis, hydroureter, or calculi seen. There is mild bilateral perinephric stranding. BLADDER: Unremarkable. GASTROINTESTINAL TRACT: No dilated loops of large or small bowel are evident. No free air is identified. There is [id number] free fluid present. There is some thickening of the gastric wall which may be related to the ascites. The esophagus appears to have a thickened wall. There appear to be possible small esophageal varices. There is pericolonic fat stranding present but which is likely related to the ascites rather than acute colitis. The appendix is not visualized. There is mild sigmoid diverticulosis present. ABDOMINAL WALL: No significant hernia is appreciated. LYMPH NODES: No lymphadenopathy appreciated. VASCULAR: No abdominal aortic aneurysm is seen. There appears be recanalization of the umbilical vein as well as varices being present about the abdomen with question of small esophageal varices. There appears to be a spontaneous left-sided splenorenal shunt present. PELVIC VISCERA: There is a prominent prostate gland. OSSEOUS STRUCTURES: No destructive bony lesions are appreciated. There is ankylosis of the right sacroiliac joint. There is multilevel degenerative spurring throughout the lower thoracic and lumbar spine with some calcification of the anterior longitudinal ligament. CT/CT abdomen pelvis wo IV con IMPRESSION: Hepatic cirrhosis with splenomegaly and portal varices as described. Mild ascites. Fleischner guidelines were followed.
== END 2022-07-17 13:05 | disposition home or self-care (01) ==
LOC: HO.CT 13:04
PROVIDERS: Visit Provider Internal Medicine
DX: K75.81 Nonalcoholic steatohepatitis (NASH) (principal)
CPT/HCPCS: 74176

== ENCOUNTER → 2022-09-18 08:37 | Outpatient (REF) | payer MEDICARE, SELFPAY | LOC: HO.SL 08:37 | PROVIDERS: PCP Internal Medicine; Visit Provider Internal Medicine | DX: G47.33 Obstructive sleep apnea (adult) (pediatric) (principal) | CPT/HCPCS: 95806 ==

== ENCOUNTER 2023-01-09 08:44 | Outpatient (REF) | payer MEDICARE, SELFPAY ==
--- NOTE | ~2023-01-09 | US_ITS ---
EXAMINATION: US duplex arterial venous comp, US abdomen complete CLINICAL INFORMATION: Nonalcoholic cirrhosis. COMPARISON: CT abdomen 07/27/2022. Duplex abdominal ultrasound 04/12/2022. TECHNIQUE: Real-time imaging of the abdominal viscera. Color and spectral Doppler evaluation of the hepatic vasculature. FINDINGS: LIVER: Cirrhotic liver. No discrete liver mass. No ductal dilatation. SPLENIC VEIN: Patent with normal waveform. HEPATIC VEINS: Patent with normal waveforms. PORTAL VEINS: Patent with normal waveforms and hepatopetal flow. HEPATIC ARTERIES: Normal upstroke and diastolic flow. INFERIOR VENA CAVA: Patent with normal waveform. GALLBLADDER: Cholecystectomy. COMMON BILE DUCT: Normal in caliber measuring 0.2 cm in diameter. PANCREAS: Obscured by bowel gas. RIGHT KIDNEY: Normal. No hydronephrosis. No renal calculi or focal parenchymal lesions. The kidney measures 9.8 cm in maximum dimension LEFT KIDNEY: Normal. No hydronephrosis. No renal calculi or focal parenchymal lesions. The kidney measures 9.8 cm in maximum dimension. SPLEEN: Splenomegaly. The spleen measures 17.2 cm in maximum dimension. ABDOMINAL AORTA: The visualized proximal segment is normal in caliber. INFERIOR VENA CAVA: Visualized portions are normal. FREE FLUID: Small volume of ascites. US/US duplex arterial venous comp IMPRESSION: Cirrhotic liver. Portal hypertension with splenomegaly and ascites. No evidence of portal vein thrombosis.
--- NOTE | ~2023-01-09 | US_ITS ---
EXAMINATION: US duplex arterial venous comp, US abdomen complete CLINICAL INFORMATION: Nonalcoholic cirrhosis. COMPARISON: CT abdomen 07/27/2022. Duplex abdominal ultrasound 04/12/2022. TECHNIQUE: Real-time imaging of the abdominal viscera. Color and spectral Doppler evaluation of the hepatic vasculature. FINDINGS: LIVER: Cirrhotic liver. No discrete liver mass. No ductal dilatation. SPLENIC VEIN: Patent with normal waveform. HEPATIC VEINS: Patent with normal waveforms. PORTAL VEINS: Patent with normal waveforms and hepatopetal flow. HEPATIC ARTERIES: Normal upstroke and diastolic flow. INFERIOR VENA CAVA: Patent with normal waveform. GALLBLADDER: Cholecystectomy. COMMON BILE DUCT: Normal in caliber measuring 0.2 cm in diameter. PANCREAS: Obscured by bowel gas. RIGHT KIDNEY: Normal. No hydronephrosis. No renal calculi or focal parenchymal lesions. The kidney measures 9.8 cm in maximum dimension LEFT KIDNEY: Normal. No hydronephrosis. No renal calculi or focal parenchymal lesions. The kidney measures 9.8 cm in maximum dimension. SPLEEN: Splenomegaly. The spleen measures 17.2 cm in maximum dimension. ABDOMINAL AORTA: The visualized proximal segment is normal in caliber. INFERIOR VENA CAVA: Visualized portions are normal. FREE FLUID: Small volume of ascites. US/US abdomen complete IMPRESSION: Cirrhotic liver. Portal hypertension with splenomegaly and ascites. No evidence of portal vein thrombosis.
== END 2023-01-09 08:45 | disposition home or self-care (01) ==
LOC: HO.US 08:44
PROVIDERS: PCP Internal Medicine; Visit Provider Internal Medicine
DX: K74.60 Unspecified cirrhosis of liver (principal)
CPT/HCPCS: 76700; 93975

== ENCOUNTER 2023-02-26 09:24 | Outpatient (REF) | payer MEDICARE, SELFPAY ==
[2023-02-26 11:05] LABS: MANUAL DIFF FLAG NO
[2023-02-26 11:09] LABS: Basophils Percent Auto 1.1 % (0-2); Eosinophils Absolute Auto 0.4 X10*3/uL (0.0-0.4); Eosinophils Percent Auto 11.6 % (0-4); Hematocrit 32.9 % (42.0-52.0); Hemoglobin 10.8 g/dl (14.0-18.0); Imm Gran Abs Auto 0.02 X10*3/uL (0.00-0.03); Imm Gran Pct Auto 0.6 % (0.0-0.4); Lymphocytes Percent Auto 26.5 % (20-40); Mean Corpuscular HGB Conc 32.8 g/dl (31.0-36.0); Mean Corpuscular Hemoglobin 32.8 pg (27.0-33.0); Mean Platelet Volume 11.4 fL (9.4-12.4); Monocytes Absolute Auto 0.4 X10*3/uL (0.1-1.2); Monocytes Percent Auto 10.2 % (2-11); Neutrophils Absolute Auto 1.8 x10*3/uL (2.0-8.3); Red Blood Count 3.29 X10*6/uL (4.60-5.80); Red Cell Distribution Width 13.2 % (11.0-16.0); White Blood Count 3.6 X10*3/uL (4.8-10.8)
[2023-02-26 11:10] LABS: Platelet Count 68 X10*3/uL (160-400)
[2023-02-26 11:23] LABS: Alanine Aminotransferase 39 U/L (0-40); Albumin Level 3.4 g/dL (3.5-5.0); Alkaline Phosphatase 207 U/L (39-117); Anion Gap 11 (12-20); Aspartate Amino Transferase 50 U/L (5-37); Bilirubin Total 1.2 mg/dL (0.0-1.0); Blood Urea Nitrogen 21 mg/dL (9-16); Calcium 9.2 mg/dL (8.4-10.2); Carbon Dioxide 23 mmol/L (22-29); Chloride 111 mmol/L (96-108); Estimated Glomerular Filt Rate > 60; Glucose Random 141 mg/dL (60-115); Potassium 4.8 mmol/L (3.3-5.1); Sodium 140 mmol/L (135-145); Total Protein 6.9 g/dL (6.5-8.0)
[2023-02-26 11:28] LABS: Estimated Average Glucose 123 mg/dL; Hemoglobin A1c % 5.9 % (<6.0)
[2023-02-26 11:37] LABS: Creatinine Urine 74.47 mg/dL; Microalbum/Creatinine Ratio Ur 6.7 ug/mg cr (<30)
== END 2023-02-26 09:25 | disposition home or self-care (01) ==
LOC: HO.10HDL 09:24
PROVIDERS: Visit Provider Internal Medicine
DX: I10 Essential (primary) hypertension (principal); E11.9 Type 2 diabetes mellitus without complications
CPT/HCPCS: 36415; 80053; 82043; 82570; 83036; 85025

== ENCOUNTER 2023-03-15 11:24 | Outpatient (REF) | payer MEDICARE, SELFPAY ==
[2023-03-15 13:38] LABS: INTERNATIONAL NORM RATIO 1.1 (0.9-1.1); Prothrombin Time 13.5 SEC (11.1-13.3)
[2023-03-15 13:42] LABS: Anion Gap 10 (12-20); Blood Urea Nitrogen 27 mg/dL (9-16); Calcium 9.1 mg/dL (8.4-10.2); Carbon Dioxide 23 mmol/L (22-29); Chloride 109 mmol/L (96-108); Estimated Glomerular Filt Rate > 60; Glucose Random 213 mg/dL (60-115); Potassium 5.4 mmol/L (3.3-5.1); Sodium 137 mmol/L (135-145)
[2023-03-16 12:38] LABS: Alpha Fetoprotein 1.6 ng/mL (<6.1)
== END 2023-03-15 11:25 | disposition home or self-care (01) ==
LOC: HO.10HDL 11:24
PROVIDERS: Visit Provider Internal Medicine
DX: K74.69 Other cirrhosis of liver (principal)
CPT/HCPCS: 36415; 80048; 82105; 85610

== ENCOUNTER 2023-03-27 14:37 | Outpatient (REF) | payer MEDICARE, SELFPAY ==
[2023-03-27 15:55] LABS: Anion Gap 9 (12-20); Blood Urea Nitrogen 29 mg/dL (9-16); Calcium 8.9 mg/dL (8.4-10.2); Carbon Dioxide 22 mmol/L (22-29); Chloride 113 mmol/L (96-108); Estimated Glomerular Filt Rate > 60; Glucose Random 281 mg/dL (60-115); Potassium 5.1 mmol/L (3.3-5.1); Sodium 139 mmol/L (135-145)
== END 2023-03-27 14:38 | disposition home or self-care (01) ==
LOC: HO.LAB 14:37
PROVIDERS: PCP Internal Medicine; Visit Provider Internal Medicine
DX: K74.60 Unspecified cirrhosis of liver (principal)
CPT/HCPCS: 36415; 80048

== ENCOUNTER 2023-04-10 10:33 | Outpatient (REF) | payer MEDICARE, SELFPAY ==
[2023-04-10 12:12] LABS: Anion Gap 12 (12-20); Blood Urea Nitrogen 18 mg/dL (9-16); Carbon Dioxide 24 mmol/L (22-29); Chloride 109 mmol/L (96-108); Estimated Glomerular Filt Rate > 60; Potassium 4.8 mmol/L (3.3-5.1); Sodium 140 mmol/L (135-145)
== END 2023-04-10 10:34 | disposition home or self-care (01) ==
LOC: HO.LABR 10:33
PROVIDERS: PCP Internal Medicine; Visit Provider Internal Medicine
DX: K74.60 Unspecified cirrhosis of liver (principal)
CPT/HCPCS: 36415; 80051; 82565; 84520

== ENCOUNTER 2023-04-26 08:05 | Outpatient (REF) | payer MEDICARE, SELFPAY ==
[2023-04-26 09:57] LABS: Anion Gap 11 (12-20); Blood Urea Nitrogen 22 mg/dL (9-16); Calcium 8.8 mg/dL (8.4-10.2); Carbon Dioxide 24 mmol/L (22-29); Chloride 111 mmol/L (96-108); Estimated Glomerular Filt Rate > 60; Glucose Random 165 mg/dL (60-115); Potassium 4.5 mmol/L (3.3-5.1); Sodium 141 mmol/L (135-145)
== END 2023-04-26 08:06 | disposition home or self-care (01) ==
LOC: HO.LABR 08:05
PROVIDERS: PCP Internal Medicine; Visit Provider Internal Medicine
DX: K74.60 Unspecified cirrhosis of liver (principal)
CPT/HCPCS: 36415; 80048

== ENCOUNTER 2023-05-09 11:43 | Outpatient (REF) | payer MEDICARE, SELFPAY ==
[2023-05-09 12:41] LABS: Anion Gap 11 (12-20); Blood Urea Nitrogen 26 mg/dL (9-16); Carbon Dioxide 23 mmol/L (22-29); Chloride 109 mmol/L (96-108); Estimated Glomerular Filt Rate > 60; Glucose Random 224 mg/dL (60-115); Potassium 5.3 mmol/L (3.3-5.1); Sodium 138 mmol/L (135-145)
== END 2023-05-09 11:44 | disposition home or self-care (01) ==
LOC: HO.LABR 11:43
PROVIDERS: PCP Internal Medicine; Referring Provider Internal Medicine; Visit Provider Internal Medicine
DX: K74.60 Unspecified cirrhosis of liver (principal)
CPT/HCPCS: 36415; 80048

== ENCOUNTER 2023-05-22 08:44 | Outpatient (REF) | payer MEDICARE, SELFPAY ==
[2023-05-22 10:59] LABS: Anion Gap 9 (12-20); Blood Urea Nitrogen 31 mg/dL (9-16); Calcium 9.2 mg/dL (8.4-10.2); Carbon Dioxide 26 mmol/L (22-29); Chloride 109 mmol/L (96-108); Estimated Glomerular Filt Rate > 60; Glucose Random 149 mg/dL (60-115); Sodium 139 mmol/L (135-145)
== END 2023-05-22 08:45 | disposition home or self-care (01) ==
LOC: HO.LABR 08:44
PROVIDERS: Visit Provider Internal Medicine
DX: K74.60 Unspecified cirrhosis of liver (principal)
CPT/HCPCS: 36415; 80048

== ENCOUNTER 2023-06-06 09:10 | Outpatient (REF) | payer MEDICARE, SELFPAY ==
[2023-06-06 10:19] LABS: Anion Gap 13 (12-20); Blood Urea Nitrogen 29 mg/dL (9-16); Calcium 9.4 mg/dL (8.4-10.2); Carbon Dioxide 25 mmol/L (22-29); Chloride 108 mmol/L (96-108); Estimated Glomerular Filt Rate 58; Glucose Random 164 mg/dL (60-115); Potassium 4.9 mmol/L (3.3-5.1); Sodium 141 mmol/L (135-145)
== END 2023-06-06 09:11 | disposition home or self-care (01) ==
LOC: HO.LAB 09:10
PROVIDERS: PCP Internal Medicine; Visit Provider Internal Medicine
DX: K74.60 Unspecified cirrhosis of liver (principal)
CPT/HCPCS: 36415; 80048

== ENCOUNTER 2023-06-19 08:50 | Outpatient (REF) | payer MEDICARE, SELFPAY ==
[2023-06-19 09:52] LABS: Anion Gap 13 (12-20); Blood Urea Nitrogen 23 mg/dL (9-16); Carbon Dioxide 24 mmol/L (22-29); Chloride 111 mmol/L (96-108); Estimated Glomerular Filt Rate > 60; Glucose Random 148 mg/dL (60-115); Potassium 4.6 mmol/L (3.3-5.1); Sodium 143 mmol/L (135-145)
== END 2023-06-19 08:51 | disposition home or self-care (01) ==
LOC: HO.LAB 08:50
PROVIDERS: PCP Internal Medicine; Visit Provider Internal Medicine
DX: K74.60 Unspecified cirrhosis of liver (principal)
CPT/HCPCS: 36415; 80048

== ENCOUNTER 2023-07-03 08:24 | Outpatient (REF) | payer MEDICARE, SELFPAY ==
[2023-07-03 10:04] LABS: Anion Gap 10 (12-20); Blood Urea Nitrogen 20 mg/dL (9-16); Calcium 9.3 mg/dL (8.4-10.2); Carbon Dioxide 26 mmol/L (22-29); Chloride 110 mmol/L (96-108); Estimated Glomerular Filt Rate > 60; Glucose Random 146 mg/dL (60-115); Potassium 4.4 mmol/L (3.3-5.1); Sodium 142 mmol/L (135-145)
== END 2023-07-03 08:25 | disposition home or self-care (01) ==
LOC: HO.LABR 08:24
PROVIDERS: PCP Internal Medicine; Visit Provider Internal Medicine
DX: K74.60 Unspecified cirrhosis of liver (principal)
CPT/HCPCS: 36415; 80048

== ENCOUNTER 2023-07-17 07:38 | Outpatient (REF) | payer MEDICARE, SELFPAY ==
[2023-07-17 08:40] LABS: Anion Gap 10 (12-20); Blood Urea Nitrogen 19 mg/dL (9-16); Calcium 8.8 mg/dL (8.4-10.2); Carbon Dioxide 25 mmol/L (22-29); Chloride 111 mmol/L (96-108); Estimated Glomerular Filt Rate > 60; Glucose Random 135 mg/dL (60-115); Potassium 4.3 mmol/L (3.3-5.1); Sodium 142 mmol/L (135-145)
== END 2023-07-17 07:39 | disposition home or self-care (01) ==
LOC: HO.LABR 07:38
PROVIDERS: PCP Internal Medicine; Visit Provider Internal Medicine
DX: K74.60 Unspecified cirrhosis of liver (principal)
CPT/HCPCS: 36415; 80048

== ENCOUNTER 2023-08-09 08:38 | Outpatient (REF) | payer MEDICARE, SELFPAY ==
[2023-08-09 08:56] LABS: MANUAL DIFF FLAG NO
[2023-08-09 09:48] LABS: Basophils Percent Auto 0.9 % (0-2); Eosinophils Absolute Auto 0.3 X10*3/uL (0.0-0.4); Eosinophils Percent Auto 8.5 % (0-4); Hematocrit 31.9 % (42.0-52.0); Hemoglobin 10.6 g/dl (14.0-18.0); Mean Corpuscular HGB Conc 33.2 g/dl (31.0-36.0); Mean Corpuscular Hemoglobin 31.5 pg (27.0-33.0); Mean Corpuscular Volume 94.9 fL (80.0-98.0); Mean Platelet Volume 11.4 fL (9.4-12.4); Monocytes Absolute Auto 0.3 X10*3/uL (0.1-1.2); Monocytes Percent Auto 10.4 % (2-11); Neutrophils Absolute Auto 1.6 x10*3/uL (2.0-8.3); Neutrophils Percent Auto 49.2 % (45-73); Red Blood Count 3.36 X10*6/uL (4.60-5.80); Red Cell Distribution Width 14.4 % (11.0-16.0); White Blood Count 3.2 X10*3/uL (4.8-10.8)
[2023-08-09 09:54] LABS: Platelet Count 57 X10*3/uL (160-400)
[2023-08-09 10:06] LABS: Estimated Average Glucose 146 mg/dL; Hemoglobin A1c % 6.7 % (<6.0)
[2023-08-09 10:18] LABS: Anion Gap 11 (12-20); Blood Urea Nitrogen 20 mg/dL (9-16); Calcium 8.9 mg/dL (8.4-10.2); Carbon Dioxide 23 mmol/L (22-29); Chloride 110 mmol/L (96-108); Estimated Glomerular Filt Rate > 60; Glucose Random 124 mg/dL (60-115); Potassium 4.2 mmol/L (3.3-5.1); Sodium 140 mmol/L (135-145)
[2023-08-09 10:22] LABS: Alanine Aminotransferase 29 U/L (0-40); Albumin Level 3.4 g/dL (3.5-5.0); Alkaline Phosphatase 183 U/L (39-117); Anion Gap 9 (12-20); Aspartate Amino Transferase 37 U/L (5-37); Bilirubin Total 1.9 mg/dL (0.0-1.0); Blood Urea Nitrogen 20 mg/dL (9-16); Calcium 8.8 mg/dL (8.4-10.2); Carbon Dioxide 25 mmol/L (22-29); Chloride 111 mmol/L (96-108); Estimated Glomerular Filt Rate > 60; Glucose Random 125 mg/dL (60-115); Potassium 4.2 mmol/L (3.3-5.1); Sodium 141 mmol/L (135-145); Total Protein 6.8 g/dL (6.5-8.0)
[2023-08-09 11:49] LABS: Microalbumin Urine < 5.0 mg/L
== END 2023-08-09 08:39 | disposition home or self-care (01) ==
LOC: HO.LAB 08:38
PROVIDERS: Absent Provider Internal Medicine; PCP Internal Medicine; Visit Provider Internal Medicine
DX: K74.60 Unspecified cirrhosis of liver (principal); G62.9 Polyneuropathy, unspecified; G47.33 Obstructive sleep apnea (adult) (pediatric); E11.9 Type 2 diabetes mellitus without complications; R79.89 Other specified abnormal findings of blood chemistry
CPT/HCPCS: 36415; 80048; 80053; 82043; 82570; 83036; 85025

== ENCOUNTER 2023-08-28 09:19 | Outpatient (REF) | payer MEDICARE, SELFPAY ==
[2023-08-28 10:08] LABS: Anion Gap 12 (12-20); Blood Urea Nitrogen 25 mg/dL (9-16); Calcium 8.8 mg/dL (8.4-10.2); Carbon Dioxide 25 mmol/L (22-29); Chloride 109 mmol/L (96-108); Estimated Glomerular Filt Rate > 60; Glucose Random 174 mg/dL (60-115); Potassium 4.2 mmol/L (3.3-5.1); Sodium 142 mmol/L (135-145)
== END 2023-08-28 09:20 | disposition home or self-care (01) ==
LOC: HO.LAB 09:19
PROVIDERS: Visit Provider Internal Medicine
DX: K74.60 Unspecified cirrhosis of liver (principal)
CPT/HCPCS: 36415; 80048

== ENCOUNTER 2023-09-15 01:59 | Inpatient (IN) | payer MEDICARE, SELFPAY ==
[2023-09-15] VITALS (21 sets, daily range): BP systolic 102–161; BP diastolic 58–88; PULSE 62–80; RESP 14–28; TEMP 36.1–37.4; O2SAT 83–98; BMI 25.1
--- NOTE | 2023-09-15 | ECG_ITS ---
Test Reason : VOMITING BLOOD Blood Pressure : / mmHG Vent. Rate : 072 BPM Atrial Rate : 072 BPM P-R Int : 182 ms QRS Dur : 084 ms QT Int : 402 ms P-R-T Axes : 024 -01 023 degrees QTc Int : 440 ms Normal sinus rhythm Normal ECG When compared to the previous EKG of No significant changes seen Referred By: Generic ED Physician Electronically Signed By:NISHANT CORRALES MD
--- NOTE | ~2023-09-15 | CT_ITS ---
EXAMINATION: CT CHEST WITHOUT CONTRAST CLINICAL INFORMATION: Recurrent right pleural effusion COMPARISON: Previous chest x-ray from earlier the same day, abdominal ultrasound from [address] of the abdomen and pelvis June [address] August 2023 TECHNIQUE: Multidetector volumetric CT imaging of the chest was done. Axial MIP volume rendering provided. Sagittal and coronal reformatted images were obtained. This CT examination was performed using dose optimization techniques as appropriate, variously including the following: *Automated exposure control *Adjustment of mA and/or kV according to patient size (this includes techniques or standardized protocols for targeted exams where dose is matched to indication/reason for exam; i.e. extremities or head) *Use of iterative reconstruction technique DLP: 156 mGy-cm FINDINGS: LUNGS: There is complete compressive atelectasis of the right lower lobe and partial compressive atelectasis of the right middle lobe adjacent to the large right pleural effusion. The lungs are otherwise clear. MEDIASTINUM: Normal heart size. No pericardial effusion. Small mediastinal lymph nodes. There is diffuse wall thickening of the mid and distal thoracic esophagus. CORONARY ARTERY CALCIFICATION: None visualized on this study. PLEURA: There is a large right pleural effusion. There is a tiny left pleural effusion. AXILLA: No lymphadenopathy. UPPER ABDOMEN: The spleen is enlarged. There are cirrhotic changes of the liver. There is pneumobilia seen in the left lobe of the liver. There is diffuse wall thickening of the stomach. There are small varices. There is a small amount of ascites. OSSEOUS STRUCTURES: Degenerative changes of the spine and right shoulder. CT/CT chest wo IV con IMPRESSION: Large right pleural effusion and compressive atelectasis of the right lower and right middle lobes. This may be secondary to liver disease. Diffuse wall thickening of the mid and lower thoracic esophagus and stomach. Cirrhotic appearing liver and pneumobilia. Small amount of ascites, varices and splenomegaly. Fleischner guidelines were followed.
--- NOTE | ~2023-09-15 | CT_ITS ---
EXAMINATION: CT CHEST WITHOUT CONTRAST CLINICAL INFORMATION: Pleural effusion. COMPARISON: None available. TECHNIQUE: Multidetector volumetric CT imaging of the chest was done. Axial MIP volume rendering provided. Sagittal and coronal reformatted images were obtained. This CT examination was performed using dose optimization techniques as appropriate, variously including the following: *Automated exposure control *Adjustment of mA and/or kV according to patient size (this includes techniques or standardized protocols for targeted exams where dose is matched to indication/reason for exam; i.e. extremities or head) *Use of iterative reconstruction technique DLP: 266 mGy-cm FINDINGS: MACHINE WIPER: Unremarkable. LUNGS: There is dependent consolidation at the right lung base associated with a moderate right pleural effusion. MEDIASTINUM: The mediastinum is normal. CORONARY ARTERY CALCIFICATION: None visualized on this study. PLEURA: There is a moderate right pleural effusion. AXILLA: No lymphadenopathy. UPPER ABDOMEN: There is thickening of the visualized lower esophagus. There is a cirrhotic liver with splenomegaly. OSSEOUS STRUCTURES: Unremarkable. CT/CT chest wo IV con IMPRESSION: 1. Moderate right pleural effusion with dependent consolidation at the right lung base likely representing atelectasis. 2. Cirrhotic liver with splenomegaly. 3. Thickening of the distal esophagus Fleischner guidelines were followed.
--- NOTE | ~2023-09-15 | XR_ITS ---
EXAMINATION: XR CHEST CLINICAL INFORMATION: Chest pain. Basilar crackles. COMPARISON: 07/05/2022. Correlation made with CT performed 07/16/2023. TECHNIQUE: Frontal view of the chest was obtained. FINDINGS: The cardiomediastinal silhouette is stable. There is a faint right mid to lower lung field opacity. There is minimal atelectatic change at the left lung base. The bony structures and soft tissues are unremarkable. XR/XR chest 1V IMPRESSION: 1. Faint right mid to lower lung field opacity. This was seen as a moderate right pleural effusion with atelectasis on recent CT. 2. Minimal atelectatic change at the left lung base.
--- NOTE | ~2023-09-15 | US_ITS ---
PROCEDURE: Ultrasound-guided right thoracentesis HISTORY: Right pleural effusion, therapeutic drainage SPECIMEN: None ACCESS: 5 [place] Yueh catheter MEDICATIONS: 10 mL 1% lidocaine TECHNIQUE/FINDINGS Appropriate preprocedural clinical history and imaging studies were reviewed. The patient was brought to the department and placed in the seated position. Ultrasound images of the right thorax were obtained to localize a large pleural effusion. Permanent ultrasound images were saved. Risks and benefits and possible complications were discussed with the patient and consent form was signed. An area of the patient's right back was prepped and draped in usual sterile fashion. 10 mL of 1% lidocaine was used to obtain local anesthesia of the skin and deeper tissues. A standard small bore needle was introduced to sample pleural fluid and demonstrate a safe access route. A 5 [place] Yueh catheter was then used to access the pleural cavity. 1400 ml of serosanguineous fluid was removed passively. The catheter was then removed. A dressing was applied. A postprocedure chest x-ray will be performed and will be dictated separately. There were no immediate complications. The procedure was performed by Nicholas Martinez PA-C and supervised by Dr. Clayton US/US thoracentesis IMPRESSION: -Successful Ultrasound-guided right thoracentesis. -Drainage of 1.4 L serous sanguinous pleural fluid. This patient reaccumulated significant pleural effusion in 2 days' time, a relatively short duration. -Postop chest radiograph demonstrates no evidence of pneumothorax.
--- NOTE | ~2023-09-15 | US_ITS ---
LIMITED ABDOMEN ULTRASOUND HISTORY: Liver disease, ascites, evaluate for paracentesis COMPARISON: CT abdomen pelvis 09/15/2023, ultrasound abdomen limited 09/15/2023 FINDINGS: There is trace ascites in the lower abdomen/pelvis. There is insufficient fluid present for safe paracentesis. A few help desk representative images were obtained. US/US abdomen limited pre post IMPRESSION: Trace ascites. Insufficient fluid present for a paracentesis. The procedure was performed by Nicholas Martinez PA-C and supervised by Dr. Clayton.
--- NOTE | ~2023-09-15 | XR_ITS ---
EXAMINATION: XR CHEST CLINICAL INFORMATION: Reason for Exam s/p right thoracentesis COMPARISON: Chest radiograph 09/17/2023 TECHNIQUE: One view of the chest FINDINGS: Lines and tubes: EKG leads overlie the patient. Decrease small moderate right pleural effusion with persistent right basilar opacities. Indistinctness of the central pulmonary vasculature may reflect pulmonary venous congestion. No pneumothorax. Unchanged cardiomediastinal silhouette. XR/XR chest 1V IMPRESSION: 1. Decrease small to moderate right pleural effusion with persistent right basilar opacities. 2. Indistinctness of the central pulmonary vasculature may reflect pulmonary venous congestion, similar to prior.
--- NOTE | ~2023-09-15 | US_ITS ---
EXAMINATION: US ABDOMEN LIMITED CLINICAL INFORMATION: for patency of portal vein/ascites. COMPARISON: CT 09/15/2023 TECHNIQUE: Real-time imaging of the right upper quadrant abdominal viscera. US/US abdomen limited FINDINGS/IMPRESSION: Main portal vein is patent with appropriate hepatopedal flow. Trace ascites seen in the right abdomen and small volume ascites in the left lower quadrant.
--- NOTE | ~2023-09-15 | XR_ITS ---
EXAMINATION: XR CHEST CLINICAL INFORMATION: Status post right thoracentesis. COMPARISON: None available. TECHNIQUE: Frontal view of the chest was obtained. FINDINGS: Low lung volumes are present. Heart, mediastinum and vascularity within normal limits. Interval reduction in right pleural effusion status post thoracentesis. No definite pneumothorax. XR/XR chest 1V IMPRESSION: No definite pneumothorax status post right thoracentesis.
--- NOTE | ~2023-09-15 | US_ITS ---
PROCEDURE: Ultrasound-guided right thoracentesis HISTORY: Right pleural effusion SPECIMEN: A sample of pleural fluid was sent for analysis ACCESS: 5 [place] Yueh catheter MEDICATIONS: 10 mL 1% lidocaine TECHNIQUE/FINDINGS Appropriate preprocedural clinical history and imaging studies were reviewed. The patient was brought to the department and placed in the seated position. Ultrasound images of the right thorax were obtained to localize a moderate pleural effusion. Permanent ultrasound images were saved. Risks and benefits and possible complications were discussed with the patient and consent form was signed. An area of the patient's right back was prepped and draped in usual sterile fashion. 10 mL of 1% lidocaine was used to obtain local anesthesia of the skin and deeper tissues. A standard small bore needle was introduced to sample pleural fluid and demonstrate a safe access route. A 5 [place] Yueh catheter was then used to access the pleural cavity. 600 ml of yellow fluid was removed passively. The catheter was then removed. A dressing was applied. A postprocedure chest x-ray will be performed and will be dictated separately. There were no immediate complications. The procedure was performed by Nicholas Martinez PA-C and supervised by Dr. Clayton US/US thoracentesis IMPRESSION: -Ultrasound-guided right thoracentesis -Post procedure chest x-ray shows no definite right-sided pneumothorax.
--- NOTE | ~2023-09-15 | CT_ITS ---
EXAMINATION: CT GI BLEED ABDOMEN AND PELVIS WO/W IV CONTRASTABDOMEN CLINICAL INFORMATION: Abdominal pain. COMPARISON: 07/17/2022. TECHNIQUE: Multidetector volumetric imaging was performed of the abdomen and pelvis prior to and following administration of 85 mL Omnipaque 350 intravenous contrast. Sagittal and coronal reformatted images were obtained on the technologist's workstation. This CT examination was performed using dose optimization techniques as appropriate, variously including the following: *Automated exposure control *Adjustment of mA and/or kV according to patient size (this includes techniques or standardized protocols for targeted exams where dose is matched to indication/reason for exam; i.e. extremities or head) *Use of iterative reconstruction technique DLP: 1443 mGy-cm FINDINGS: LUNG BASES: There is a partially imaged right pleural effusion with right lung base consolidation. LIVER, GALLBLADDER, AND BILIARY TREE: The liver is small and irregular in contour. No focal liver lesions are seen. There is intrahepatic biliary air. The gallbladder is not seen. PANCREAS: Unremarkable SPLEEN: Spleen is enlarged measuring up to 17 cm. ADRENAL GLANDS: Unremarkable KIDNEYS AND URETERS: The kidneys are normal in size, shape, and attenuation. No hydronephrosis, hydroureter, or calculi seen. No perinephric stranding. BLADDER: Unremarkable GASTROINTESTINAL TRACT: There is mild right colonic thickening. The appendix is not identified. There is thickening of the visualized distal esophagus. There is no evidence for contrast extravasation into bowel to suggest active GI bleeding. ABDOMINAL WALL: There is mild umbilical region thickening. LYMPH NODES: Normal VASCULAR: Gastric varices are noted. There also appears to be esophageal varices. PELVIC VISCERA: Pelvic viscera are unremarkable. There is small volume ascites. OSSEOUS STRUCTURES: There is mild diffuse lumbar disc degenerative change. CT/CT gi bleed abd pel wo/w IVcon IMPRESSION: 1. Cirrhotic liver with splenomegaly, varices and small volume ascites. 2. Mild right colonic wall thickening may be related to portal colopathy. 3. Partially imaged right pleural effusion with right lung base consolidation. 4. No evidence for active GI bleeding.
--- NOTE | ~2023-09-15 | XR_ITS ---
EXAMINATION: XR CHEST CLINICAL INFORMATION: Pulmonary edema COMPARISON: X-ray 09/16/2023 TECHNIQUE: Frontal view of the chest was obtained. FINDINGS: Rotated positioning. Cardiomediastinal silhouette is stable. There is a central vascular prominence and increased interstitial markings could reflect mild pulmonary edema. Moderate right pleural effusion.. There is right basilar opacification, could reflect component of atelectasis or consolidation. Low lung volumes. No pneumothorax is seen. XR/XR chest 1V IMPRESSION: Vascular and interstitial prominence could reflect mild pulmonary edema. Redemonstrated is moderate right pleural effusion with right basilar atelectasis/consolidation.
--- NOTE | ~2023-09-15 | XR_ITS ---
EXAMINATION: XR CHEST CLINICAL INFORMATION: Shortness of breath COMPARISON: 09/18/2023 TECHNIQUE: Frontal view of the chest was obtained. FINDINGS: Study limited by low lung volumes and positioning. Vascularity is prominent, possibly influenced by low lung volumes. Suspect increasing right pleural effusion and atelectasis. Degenerative changes. XR/XR chest 1V IMPRESSION: Low lung volumes limiting study. Suspect increasing right effusion and atelectasis.
[2023-09-15 02:45] LABS: Basophils Percent Auto 0.4 % (0-2); Eosinophils Absolute Auto 0.2 X10*3/uL (0.0-0.4); Eosinophils Percent Auto 4.3 % (0-4); Hematocrit 30.3 % (42.0-52.0); Hemoglobin 10.4 g/dl (14.0-18.0); Imm Gran Abs Auto 0.02 X10*3/uL (0.00-0.03); Imm Gran Pct Auto 0.4 % (0.0-0.4); Lymphocytes Absolute Auto 0.8 X10*3/uL (1.2-4.9); Lymphocytes Percent Auto 14.2 % (20-40); MANUAL DIFF FLAG NO; Mean Corpuscular HGB Conc 34.3 g/dl (31.0-36.0); Mean Corpuscular Hemoglobin 32.6 pg (27.0-33.0); Mean Platelet Volume 11.3 fL (9.4-12.4); Monocytes Absolute Auto 0.5 X10*3/uL (0.1-1.2); Neutrophils Percent Auto 71.7 % (45-73); Red Blood Count 3.19 X10*6/uL (4.60-5.80); Red Cell Distribution Width 13.7 % (11.0-16.0); White Blood Count 5.6 X10*3/uL (4.8-10.8)
[2023-09-15 02:46] LABS: Platelet Count 54 X10*3/uL (160-400)
--- NOTE | 2023-09-15 02:51 | PC.NURSE ---
Patient comes from home accompanied by his . He reports he started vomiting chunks of bright red blood that started today at 0100 along with mid abdominal pain. Denies blood thinners. Denies hx of bleeding , however states hx of non-alcoholic liver cirrhosis . Denies alcohol. Patient placed on awake overnight monitor, 20 G IV line established in R AC, labs sharon and sent to lab for processing. Dr. Beltran at bedside assessing patient and performing rectal exam. Call dangelo placed within patient's reach Plan of care ongoing.
[2023-09-15 02:57] LABS: INTERNATIONAL NORM RATIO 1.1 (0.9-1.1); Prothrombin Time 12.8 SEC (11.1-13.3)
[2023-09-15 03:00] LABS: Partial Thromboplastin Time 30.3 SEC (26.0-36.8)
--- NOTE | 2023-09-15 03:00 | ED.GIBLEED ---
HPI - GI Bleed General Chief complaint: GI Bleed Stated complaint: vomiting blood Time Seen by Provider: 09/15/23 02:46 Source: patient Mode of arrival: ambulatory Limitations: no limitations History of Present Illness HPI Narrative: Patient comes to the emergency room complaining vomiting blood. Related Data Home Medications ?Medication ?Instructions ?Recorded ?Confirmed acetaminophen 325 mg tablet 650 mg PO Q6H PRN Pain 07/27/20 05/16/21 (Tylenol) aspirin 81 mg chewable tablet 81 mg PO 2XW 07/27/20 05/16/21 cholecalciferol (vitamin D3) 50 50 mcg PO DAILY 07/27/20 05/16/21 mcg (2,000 unit) capsule (Vitamin D3) lisinopril 10 mg tablet 20 mg PO DAILY 07/27/20 05/16/21 meclizine 12.5 mg tablet 1 tab PO BEDTIME 07/27/20 05/16/21 metformin 500 mg tablet 1 tab PO DAILY 07/27/20 05/16/21 omeprazole 20 mg capsule,delayed 1 cap PO 3XW 07/27/20 05/16/21 release simvastatin 20 mg tablet 1 tab PO BEDTIME 07/27/20 05/16/21 Allergies Allergy/AdvReac Type Severity Reaction Status Date / Time [place] nut Allergy Severe Facial Verified 09/15/23 02:16 Swelling, itching Seasonal Allergies Allergy Intermediate Nasal Verified 09/15/23 02:16 congestion PMFSH Past Medical History Medical History (Updated 09/15/23 @ 07:29 by Eboni Beltran MD) COVID-19 vaccine series completed BPH (benign prostatic hyperplasia) Loud snoring Post-ERCP acute pancreatitis History of anesthesia reaction History of skin cancer Hyperlipidemia Diabetes mellitus Kerr esophagus Hiatal hernia GERD (gastroesophageal reflux disease) History of hepatitis B Hypertension Surgical History (Updated 05/16/21 @ 13:55 by Kera Moody RN) Hx of foot surgery Hx of nasal septoplasty History of dental surgery Hx of endoscopic retrograde cholangiopancreatography Hx of appendectomy Hx of colonoscopy History of esophagogastroduodenoscopy (EGD) History of tracheostomy as a child Hx of cholecystectomy Social History Social History (Updated 12/24/20 @ 16:25 by Reena Sauer RN) Are you a primary pharmacist critical care to a significant other at home: No Do you presently have visiting nurse or other home services: No Alcohol intake: former Patient Tobacco Use Status: Former Tobacco user Quit Date: 1971 Smoked in Last 30 Days: No Use of substances other than those prescribed or required for medical reasons: No Advance Directives: No Advance Directives Information Provided: Yes Do you have a plan to hurt others: No Plan Physical Exam Vital Signs: Vital Signs: Last Vital Signs Temp 99.3 F 09/15/23 07:15 Pulse 77 09/15/23 07:15 Resp 18 09/15/23 07:15 BP 121/58 L 09/15/23 07:15 Pulse Ox 94 09/15/23 05:45 O2 Del Method Room Air 09/15/23 07:15 BMI result Body Mass Index 25.1 Course Course Course Narrative: -patient received octreotide push and drip, pantoprazole, IV fluids. -empirically, patient was treated with azithromycin and ceftriaxone for a possible lung consolidation. However, patient has no clinical signs of pneumonia. Medications Administered Generic Name Dose Route Start Last Admin Trade Name Freq PRN Reason Stop Dose Admin Octreotide Acetate 500 mcg/ 501 mls @ 50.1 mls/hr 09/15/23 03:00 09/15/23 05:27 Sodium Chloride IVCONT 50 mcg/hr .Q10H ARACELIS 50.1 mls/hr Administration 50 MCG/HR Discontinued Medications Generic Name Dose Route Start Last Admin Trade Name Freq PRN Reason Stop Dose Admin Iohexol 85 ml 09/15/23 04:19 09/15/23 04:21 Iohexol 350 Mg/Ml 100 Ml Infus..Btl IV 09/15/23 04:20 85 ml ONCE ONE Administration Octreotide Acetate 50 mcg 09/15/23 02:58 09/15/23 03:19 Octreotide Acetate 100 Mcg/Ml Ampul IVPUSH 09/15/23 02:59 50 mcg ONCE ONE Administration Pantoprazole Sodium 80 mg 09/15/23 02:58 09/15/23 03:19 Pantoprazole Sodium 40 Mg/10 Ml Vial IVPUSH 09/15/23 02:59 80 mg ONCE ONE Administration Medical Decision Making Medical Decision Making [facility] Narrative: -patient's hematology and chemistry within normal limits. -my interpretation of labs: Guaiac gastric and stool positive for blood. Patient's vitals are stable. -at this time, 07:23, CT scan eyes available for review, patient has pleural effusion on the right lung with possible consolidation. Patient has no URI signs fever or any signs of pneumonia. Patient empirically being covered with ceftriaxone and azithromycin -sepsis not suspected Differential Diagnosis Differential Diagnoses: The differential diagnosis associated with the presentation includes (Per GI, lower GI, cirrhosis) Admission/Observation Consideration of admission/observation: Escalation of care including admission/observation considered Consult Healthcare Provider Management of the patient was discussed with: Hospitalist Lab Data MDM Lab Attestation statement: I reviewed the patient's lab results. 09/15/23 02:41 09/15/23 02:41 Labs: Lab Results 09/15/23 09/15/23 09/15/23 Range/Units 02:41 02:57 03:09 WBC 5.6 (4.8-10.8) X10*3/uL RBC 3.19 L (4.60-5.80) X10*6/uL Hgb 10.4 L (14.0-18.0) g/dl Hct 30.3 L (42.0-52.0) % MCV 95.0 (80.0-98.0) fL MCH 32.6 (27.0-33.0) pg MCHC 34.3 (31.0-36.0) g/dl RDW 13.7 (11.0-16.0) % Plt Count 54 L (160-400) X10*3/uL MPV 11.3 (9.4-12.4) fL Immature Gran % (Auto) 0.4 (0.0-0.4) % Neut % (Auto) 71.7 (45-73) % Lymph % (Auto) 14.2 L (20-40) % [place] % (Auto) 9.0 (2-11) % Eos % (Auto) 4.3 H (0-4) % Baso % (Auto) 0.4 (0-2) % Lymph # (Auto) 0.8 L (1.2-4.9) X10*3/uL [place] # (Auto) 0.5 (0.1-1.2) X10*3/uL Eos # (Auto) 0.2 (0.0-0.4) X10*3/uL Baso # (Auto) 0.0 (0.0-0.2) X10*3/uL Abs Immat Gran (auto) 0.02 (0.00-0.03) X10*3/uL Absolute Neuts (auto) 4.0 (2.0-8.3) x10*3/uL Absolute Nucleated RBC 0.000 (0.0-0.012) X10*3/uL Nucleated RBC % (auto) 0.0 (0.0-0.2) /100WBC PT 12.8 (11.1-13.3) SEC INR 1.1 (0.9-1.1) APTT 30.3 (26.0-36.8) SEC Sodium 146 H (135-145) mmol/L Potassium 4.0 (3.3-5.1) mmol/L Chloride 111 H (96-108) mmol/L Carbon Dioxide 23 (22-29) mmol/L Anion Gap 16 (12-20) BUN 31 H (9-16) mg/dL Creatinine 1.29 (0.5-1.4) mg/dL Estim Creat Clear Calc 41.0 Estimated GFR 54 Random Glucose 219 H (60-115) mg/dL Calcium 9.0 (8.4-10.2) mg/dL Total Bilirubin 1.5 H (0.0-1.0) mg/dL AST 42 H (5-37) U/L ALT 36 (0-40) U/L Alkaline Phosphatase 206 H (39-117) U/L Troponin I High Sens < 2.7 (<3.5-35.0) ng/L Total Protein 6.9 (6.5-8.0) g/dL Albumin 3.5 (3.5-5.0) g/dL Gastric Occult Blood POSITIVE (NEG) Stool Occult Blood POSITIVE (NEGATIVE) Ethyl Alcohol < 10 mg/dL Blood Type A Negative Antibody Screen NEGATIVE Independent Interpretation I performed an independent interpretation of an: EKG and CT Scan Radiology Impression Discussion of test interpretation with radiology: I have reviewed the radiologist's reading. Radiologist Impression: FINDINGS: LUNG BASES: There is a partially imaged right pleural effusion with right lung base consolidation. LIVER, GALLBLADDER, AND BILIARY TREE: The liver is small and irregular in contour. No focal liver lesions are seen. There is intrahepatic biliary air. The gallbladder is not seen. PANCREAS: Unremarkable SPLEEN: Spleen is enlarged measuring up to 17 cm. ADRENAL GLANDS: Unremarkable KIDNEYS AND URETERS: The kidneys are normal in size, shape, and attenuation. No hydronephrosis, hydroureter, or calculi seen. No perinephric stranding. BLADDER: Unremarkable GASTROINTESTINAL TRACT: There is mild right colonic thickening. The appendix is not identified. There is thickening of the visualized distal esophagus. There is no evidence for contrast extravasation into bowel to suggest active GI bleeding. ABDOMINAL WALL: There is mild umbilical region thickening. LYMPH NODES: Normal VASCULAR: Gastric varices are noted. There also appears to be esophageal varices. PELVIC VISCERA: Pelvic viscera are unremarkable. There is small volume ascites. OSSEOUS STRUCTURES: There is mild diffuse lumbar disc degenerative change. CT/CT gi bleed abd pel wo/w IVcon IMPRESSION: 1. Cirrhotic liver with splenomegaly, varices and small volume ascites. 2. Mild right colonic wall thickening may be related to portal colopathy. 3. Partially imaged right pleural effusion with right lung base consolidation. 4. No evidence for active GI bleeding Critical Care Time Critical Care Time Critical Care Time: Yes Total Critical Care Time: 75 Attestation: I have personally provided critical care time. Time includes review of lab data, radiology results, discussion with consultants, and monitoring for potential decompensation. Intervention performed as documented. Discharge Plan Discharge Clinical Impression: Acute upper GI bleed Patient Disposition: Admitted As Inpatient Prescriptions: No Action metformin 500 mg tablet 1 tab PO DAILY acetaminophen [Tylenol] 325 mg Tablet 650 mg PO Q6H PRN (Reason: Pain) meclizine 12.5 mg tablet 1 tab PO BEDTIME simvastatin 20 mg tablet 1 tab PO BEDTIME lisinopril 10 mg tablet 20 mg PO DAILY omeprazole 20 mg capsule,delayed release(DR/EC) 1 cap PO 3XW aspirin [Baby Aspirin] 81 mg Tablet,Chewable 81 mg PO 2XW cholecalciferol (vitamin D3) [Vitamin D3] 50 mcg (2,000 unit) Capsule 50 mcg PO DAILY Print Language: Yakut
[2023-09-15 03:09] LABS: Anion Gap 16 (12-20)
[2023-09-15 03:10] LABS: Alanine Aminotransferase 36 U/L (0-40); Albumin Level 3.5 g/dL (3.5-5.0); Alkaline Phosphatase 206 U/L (39-117); Aspartate Amino Transferase 42 U/L (5-37); Bilirubin Total 1.5 mg/dL (0.0-1.0); Blood Urea Nitrogen 31 mg/dL (9-16); Carbon Dioxide 23 mmol/L (22-29); Chloride 111 mmol/L (96-108); Estimated Glomerular Filt Rate 54; Ethanol < 10 mg/dL; Glucose Random 219 mg/dL (60-115); Sodium 146 mmol/L (135-145); Total Protein 6.9 g/dL (6.5-8.0); Troponin-I High Sensitivity < 2.7 ng/L (<3.5-35.0)
[2023-09-15 03:15] LABS: OBS Int Ctl Valid YES; OBS1 POSITIVE (NEGATIVE)
[2023-09-15 03:19] LABS: GASOB Int Neg Ctl Valid YES; GASOB Int Pos Ctl Valid YES; GASOB Lot 20422; Occult Blood Gastric POSITIVE (NEG)
[2023-09-15] MEDS: Octreotide Acetate 100 MCG/ML AMPUL 50 MCG IVPUSH (03:19)
[2023-09-15] MEDS: Pantoprazole Sodium 40 MG/10 ML VIAL 80 MG IVPUSH (03:19)
--- NOTE | 2023-09-15 03:25 | PC.NURSE ---
Patient vomited coffee ground emesis x1 episode, O2 Sat 88-89% on RA after vomiting, patient placed on O2 at 1 LPM NC, saturating 92-94% on supplemental O2. Dr. Beltran made aware, no new orders at this time. Patient's at bedside call dangelo in patient's reach.
[2023-09-15] MEDS: iohexoL 350 MG/ML 100 ML INFUS..BTL 85 ML IV (04:21)
[2023-09-15] MEDS: Octreotide Acetate 500 MCG in 0.9 % Sodium Chloride 500 ML 50.1 MCG IVCONT ×2 (05:27→15:23)
--- NOTE | 2023-09-15 06:11 | MHC.EDTECH ---
Hourly rounds and vitals completed,patient is resting at this time,Belongings list completed and call dangelo in reach
[2023-09-15] MEDS: 0.9 % Sodium Chloride 1,000 ML 999 ML IVCONT (07:52)
[2023-09-15] MEDS: cefTRIAXone sodium 1 GM in 0.9 % Sodium Chloride 50 ML IV (07:53)
[2023-09-15] MEDS: Azithromycin 500 MG in 0.9 % Sodium Chloride 250 ML 125 MG IV (08:18)
--- NOTE | 2023-09-15 08:25 | PC.NURSE ---
20g IV placed in left AC, no further episodes of vomiting noted. Bladder scanned for 474, provider aware, patient wants to attempt to void prior to straight cath, provider aware
--- NOTE | 2023-09-15 08:33 | PHA.MEDREC ---
Pharmacy Consult ? Medication Reconciliation Pharmacy has completed the medication reconciliation. Patient no longer taking spironolactone. Patient attests to still taking simvastatin, however cannot see any claim history for the medication. Leaving on med rec as patient states they still take it.
--- NOTE | 2023-09-15 08:42 | PC.NURSE ---
Patient ambulated to bathroom with assist, able to void large amount of urine, reports no longer feeling pressure in bladder
[2023-09-15 08:51] LABS: MANUAL DIFF FLAG NO
[2023-09-15 08:54] LABS: Basophils Percent Auto 0.4 % (0-2); Eosinophils Absolute Auto 0.2 X10*3/uL (0.0-0.4); Eosinophils Percent Auto 3.1 % (0-4); Hematocrit 28.5 % (42.0-52.0); Hemoglobin 9.6 g/dl (14.0-18.0); Imm Gran Abs Auto 0.02 X10*3/uL (0.00-0.03); Imm Gran Pct Auto 0.4 % (0.0-0.4); Lymphocytes Absolute Auto 0.7 X10*3/uL (1.2-4.9); Lymphocytes Percent Auto 13.3 % (20-40); Mean Corpuscular HGB Conc 33.7 g/dl (31.0-36.0); Mean Corpuscular Hemoglobin 32.7 pg (27.0-33.0); Mean Corpuscular Volume 96.9 fL (80.0-98.0); Mean Platelet Volume 11.1 fL (9.4-12.4); Monocytes Absolute Auto 0.4 X10*3/uL (0.1-1.2); Monocytes Percent Auto 7.2 % (2-11); Neutrophils Absolute Auto 3.9 x10*3/uL (2.0-8.3); Neutrophils Percent Auto 75.6 % (45-73); Red Blood Count 2.94 X10*6/uL (4.60-5.80); Red Cell Distribution Width 13.9 % (11.0-16.0); White Blood Count 5.1 X10*3/uL (4.8-10.8)
[2023-09-15 08:55] LABS: Platelet Count 49 X10*3/uL (160-400)
[2023-09-15] MEDS: Pantoprazole Sodium 80 MG in 0.9 % Sodium Chloride 80 ML 10 MG IV ×2 (09:47→22:12)
--- NOTE | 2023-09-15 10:15 | PC.NURSE ---
Patient ambulated to bathroom, reports having large BM, toliet flushed before this RN able to look at BM however patient stating there was no further blood in his stool. Patients also voided large amount of urine, reports no longer having abdominal pain
--- NOTE | 2023-09-15 10:58 | PC.NURSE ---
Called blood bank regarding platelets, lab stating that they are awaiting arrival of platelets from [facility]
--- NOTE | 2023-09-15 11:19 | PC.NURSE ---
vss, at bedside, reports feeling better, denies pain or discomfort
[2023-09-15 12:29] LABS: Appearance Urine Clear; Color Urine Yellow; Glucose Urine UA Negative (Negative); Leukocyte Esterase Urine Negative (Negative); Nitrite Urine Negative (Negative); Specific Gravity - Urine >= 1.030 (1.005-1.025); Urine Blood Negative (Negative); Urine Ketones Negative (Negative); Urine Protein Negative (Neg-Trace)
[2023-09-15] MEDS: Acetaminophen 325 MG TABLET 650 MG PO (12:44)
[2023-09-15] MEDS: Albumin Human 25 % 100 ML IV (13:53)
--- NOTE | 2023-09-15 14:37 | MHC.CM.PN ---
IMM 09/14. Pt self-care, lives at home with his , uses a walker. Pts to transport him home at discharge. HCP completed with pt, now on file. PCP: Dr. Pete Veras
--- NOTE | 2023-09-15 14:51 | MHC.EDTECH ---
179 bladder scan reading
[2023-09-15 14:55] LABS: Total Protein 6.2 g/dL (6.5-8.0)
--- NOTE | 2023-09-15 15:32 | P.HPSUR_ITS ---
Pre-Procedural Eval Section A - 24 Hr Update-Section A only Date of Service: 09/15/23 The patient is an INPATIENT: Yes The patient has been examined within 24 hours of the surgical procedure. The History & Physical has been completed within 30 days and I have reviewed it.: Yes Section B - Complete if H&P > 30 days Chief Complaint: Gi bleed Allergies: Allergies Allergy/AdvReac Type Severity Reaction Status Date / Time [place] nut Allergy Severe Facial Verified 09/15/23 02:16 Swelling, itching Seasonal Allergies Allergy Intermediate Nasal Verified 09/15/23 02:16 congestion Plan I have reviewed the history and physical and performed a pertinent physical examination on my patient. No changes have occurred unless specified. Time Spent With Patient Time: Total time managing care of this patient today ____ minutes.
--- NOTE | 2023-09-15 15:33 | PM.EVENT ---
Event Note Date of Service: 09/15/23 Event Note: GI Consult-Full note dictated. History from patient, , RN, and EMR. Imp: 78 yo male with GOLD and associated cirrhosis with known esophageal varices seen on upper endo in 2021. He has been on Nadolol and omeprazole. He has no previous hx of GI bleeding. There is no hx of EtOH abuse nor ASA/NSAIDs use. He now presents with several episodes of hematemesis overnight. Denies melena. Doppler U/S in 12/2022 was negative for portal vein thrombosis. Today's U/S is pending. He presently appears stable without any clinical signs of SBP, hepatic encephalopathy, nor jaundice. Diff dx: Variceal bleed, PUD, Noelle-Phillips tear Rec: Continue IV Sandostatin and PPI, supportive care with platelet and PRBC transfusion, and monitoring of labs. Upper endoscopy today. Full consent obtained for this, including risks of bleeding and perforation. If he continues to bleed the next option would be a transfer to a tertiary hospital for a TIPS as long as there is no sign of portal vein thrombosis on today's U/S. D/W patient and in detail. They are comfortable with this plan. Thanks. Time Spent With Patient Time: Total time managing care of this patient today ____ minutes.
--- NOTE | 2023-09-15 16:29 | P.HPHOSP_ITS ---
History of Present Illness Date of Service: 09/15/23 Attending physician on admission: Jeanine Melendez Chief Complaint: Upper GI bleed. 78 y/o Mhypertension, acid reflux disease, type 2 diabetes, elevatedcholesterol, history of skin cancer, BPH, Kerr's esophagus, arthritis of the feet, Nonalcoholic-patient says that 1 days ago he went to [employer] for gambling and afterwards he came home and started having vomiting episode with ted blood initially time x2-patient decided to come to the emergency room he also had 2 coffee-ground episode in the emergency room, last episode was in 05:00 around. Currently patient denies any chest pain orsob or cough or fever or dizziness or nausea vomiting or abdominal pain. Vitals stable, initial H&H was around 10. CT abdomen: Cirrhotic liver with splenomegaly, varices and small volume in your ascites.Mild right colonic wall thickening may be related to portal colopathy. Patient was started on PPI, octreotide drip-admission was requested for upper GI bleed-patient was given 1 L fluid, ppi, antibiotics and requested admission for upper GI bleed. Type and cross done. Lab imaging EKG reviewed: hb/hct: 10.4/30.3 - trending down to 9.6/28.5 platlets trending down from 54-40 pt/inr -fine ekg-nsr. ct abd: 1. Cirrhotic liver with splenomegaly, varices and small volume ascites. 2. Mild right colonic wall thickening may be related to portal colopathy. 3. Partially imaged right pleural effusion with right lung base consolidation. 4. No evidence for active GI bleeding. Ct chest: 1. Moderate right pleural effusion with dependent consolidation at the right lung base likely representing atelectasis. 2. Cirrhotic liver with splenomegaly. 3. Thickening of the distal esophagus. abd us: Main portal vein is patent with appropriate hepatopedal flow. Trace ascites seen in the right abdomen and small volume ascites in the left lower quadrant. Review of Systems 2 Review of Systems: Yes all other systems are reviewed and are negative COUNTS INCLUDE 234 BEDS AT THE [facility] Medical History COVID-19 vaccine series completed BPH (benign prostatic hyperplasia) Loud snoring Post-ERCP acute pancreatitis History of anesthesia reaction History of skin cancer Hyperlipidemia Diabetes mellitus Kerr esophagus Hiatal hernia GERD (gastroesophageal reflux disease) History of hepatitis B Hypertension Surgical History Hx of foot surgery Hx of nasal septoplasty History of dental surgery Hx of endoscopic retrograde cholangiopancreatography Hx of appendectomy Hx of colonoscopy History of esophagogastroduodenoscopy (EGD) History of tracheostomy as a child Hx of cholecystectomy Social History Are you a primary inpatient care manager rn to a significant other at home: No Do you presently have visiting nurse or other home services: No Alcohol intake: former Patient Tobacco Use Status: Former Tobacco user Quit Date: 1971 Smoked in Last 30 Days: No Use of substances other than those prescribed or required for medical reasons: No Advance Directives: No Advance Directives Information Provided: Yes Do you have a plan to hurt others: No Plan Nutrition Risks: No Nutritional Risk service: No Meds Allergies Allergy/AdvReac Type Severity Reaction Status Date / Time [place] nut Allergy Severe Facial Verified 09/15/23 02:16 Swelling, itching Seasonal Allergies Allergy Intermediate Nasal Verified 09/15/23 02:16 congestion Active Medications: Current Medications Octreotide Acetate 500 mcg/ (Sodium Chloride) 501 mls @ 50.1 mls/hr IVCONT .Q10H [facility] Last Admin: 09/15/23 15:23 Dose: 50 mcg/hr, 50.1 mls/hr Pantoprazole Sodium 80 mg/ (Sodium Chloride) 100 mls @ 10 mls/hr IV .Q10H [facility] Last Admin: 09/15/23 09:47 Dose: 8 mg/hr, 10 mls/hr Albumin Human (Kedbumin 25 %) 100 mls @ 100 mls/hr IV Q6H [facility] Stop: 09/16/23 07:59 Last Infusion: 09/15/23 15:24 Dose: Infused Sodium Chloride (0.9 % Sodium Chloride Flush 3 Ml Syringe) 3 ml IVFLUSH QSHIFT [facility] Home Medications ?Medication ?Instructions ?Recorded ?Confirmed ?Last Taken ?Type acetaminophen 325 mg tablet 650 mg PO Q6H PRN Pain 07/27/20 09/15/23 Unknown History (Tylenol) lisinopril 10 mg tablet 20 mg PO DAILY 07/27/20 09/15/23 09/14/23 History meclizine 12.5 mg tablet 1 tab PO BEDTIME 07/27/20 09/15/23 09/14/23 History metformin 500 mg tablet 1 tab PO BID 07/27/20 09/15/23 09/14/23 History omeprazole 20 mg capsule,delayed 1 cap PO MOWEFR@0630 07/27/20 09/15/23 09/14/23 History release simvastatin 20 mg tablet 1 tab PO BEDTIME 07/27/20 09/15/23 09/14/23 History furosemide 20 mg tablet 40 mg PO DAILY 09/15/23 09/15/23 09/14/23 History nadolol 20 mg tablet 20 mg PO DAILY 09/15/23 09/15/23 09/14/23 History pregabalin 200 mg capsule 200 mg PO BID 09/15/23 09/15/23 09/14/23 History tadalafil 20 mg tablet 10 mg PO DAILY PRN Erectile 09/15/23 09/15/23 Unknown History Dysfunction tamsulosin 0.4 mg capsule 0.4 mg PO BEDTIME 09/15/23 09/15/23 09/14/23 History Physical Exam 2 Vital Signs and Narrative: Vital Signs: Last Vital Signs Temp 98 F 09/15/23 16:10 Pulse 69 09/15/23 16:10 Resp 18 09/15/23 16:10 BP 139/75 09/15/23 16:10 Pulse Ox 98 09/15/23 14:38 O2 Del Method Room Air 09/15/23 14:38 O2 Flow Rate 1 09/15/23 08:31 BMI result Body Mass Index 25.1 Appearance: Alert.? Oriented X3.? not in distress.? Eyes: Pupils equal, round and reactive to light.? Sclera nonicteric.? ENT: Pharynx normal.? Moist mucous membranes. cvs: rrr, [id number] . res: cair entry diminshed ,no wheezing or rales. abd: no rebound or guarding ,nt, bs present. ext pulses present , no cyanosis . neuro: axo3 , nonfocal. Results Labs 09/15/23 08:45 09/15/23 02:41 Labs: Laboratory Results - last 24 hr 09/15/23 09/15/23 09/15/23 02:41 02:57 03:09 MCV 95.0 MCH 32.6 MCHC 34.3 RDW 13.7 Plt Count 54 L MPV 11.3 Immature Gran % (Auto) 0.4 Neut % (Auto) 71.7 Lymph % (Auto) 14.2 L [place] % (Auto) 9.0 Eos % (Auto) 4.3 H Baso % (Auto) 0.4 Lymph # (Auto) 0.8 L [place] # (Auto) 0.5 Eos # (Auto) 0.2 Baso # (Auto) 0.0 Abs Immat Gran (auto) 0.02 Absolute Neuts (auto) 4.0 Absolute Nucleated RBC 0.000 Nucleated RBC % (auto) 0.0 PT 12.8 INR 1.1 APTT 30.3 Anion Gap 16 Estim Creat Clear Calc 41.0 Estimated GFR 54 Random Glucose 219 H Calcium 9.0 Total Bilirubin 1.5 H AST 42 H ALT 36 Alkaline Phosphatase 206 H Troponin I High Sens < 2.7 Total Protein 6.9 Albumin 3.5 Urine Color Urine Appearance Urine pH Ur Specific [place] Urine Protein Urine Glucose (UA) Urine Ketones Urine Blood Urine Nitrite Ur Leukocyte Esterase Gastric Occult Blood POSITIVE Stool Occult Blood POSITIVE Ethyl Alcohol < 10 Blood Type A Negative Antibody Screen NEGATIVE Crossmatch See Detail 09/15/23 09/15/23 09/15/23 08:45 12:19 14:22 MCV 96.9 MCH 32.7 MCHC 33.7 RDW 13.9 Plt Count 49 L MPV 11.1 Immature Gran % (Auto) 0.4 Neut % (Auto) 75.6 H Lymph % (Auto) 13.3 L [place] % (Auto) 7.2 Eos % (Auto) 3.1 Baso % (Auto) 0.4 Lymph # (Auto) 0.7 L [place] # (Auto) 0.4 Eos # (Auto) 0.2 Baso # (Auto) 0.0 Abs Immat Gran (auto) 0.02 Absolute Neuts (auto) 3.9 Absolute Nucleated RBC 0.000 Nucleated RBC % (auto) 0.0 PT INR APTT Anion Gap Estim Creat Clear Calc Estimated GFR Random Glucose Calcium Total Bilirubin AST ALT Alkaline Phosphatase Troponin I High Sens Total Protein 6.2 L Albumin Urine Color Yellow Urine Appearance Clear Urine pH 6.0 Ur Specific [place] >= 1.030 H Urine Protein Negative Urine Glucose (UA) Negative Urine Ketones Negative Urine Blood Negative Urine Nitrite Negative Ur Leukocyte Esterase Negative Gastric Occult Blood Stool Occult Blood Ethyl Alcohol Blood Type Antibody Screen Crossmatch Imaging Radiologist's Impressions: Impressions Abdomen/Pelvis CT 09/15/23 04:40 IMPRESSION: 1. Cirrhotic liver with splenomegaly, varices and small volume ascites. 2. Mild right colonic wall thickening may be related to portal colopathy. 3. Partially imaged right pleural effusion with right lung base consolidation. 4. No evidence for active GI bleeding. Chest CT 09/15/23 04:41 IMPRESSION: 1. Moderate right pleural effusion with dependent consolidation at the right lung base likely representing atelectasis. 2. Cirrhotic liver with splenomegaly. 3. Thickening of the distal esophagus Fleischner guidelines were followed. Abdomen Ultrasound 09/15/23 14:35 FINDINGS/IMPRESSION: Main portal vein is patent with appropriate hepatopedal flow. Trace ascites seen in the right abdomen and small volume ascites in the left lower quadrant. Assessment and Plan (1) Acute upper GI bleed: Status: Acute (2) Abdominal ascites: Qualifiers: Ascites type: other type Qualified Code(s): R18.8 - Other ascites Status: Acute (3) Pneumonia: Qualifiers: Pneumonia type: due to unspecified organism Laterality: right Lung location: lower lobe of lung Qualified Code(s): J18.9 - Pneumonia, unspecified organism Status: Acute Plan 78 y/o Mhypertension, acid reflux disease, type 2 diabetes, elevatedcholesterol, history of skin cancer, BPH, Kerr's esophagus, arthritis of the feet, Nonalcoholic- with upper gi bleed: Possible Upper GI bleed: ? CT abdomen possible liver cirrhosis, patient also has history of varices. Ordered 1 PRBC and platelets Monitor H&H closely Patient is on PPI and octreotide drip, NPO, will add gentle hydration GI evaluation for possible EGD CT chest: Shows possible question of pneumonia versus atelectasis. Given ceftriaxone and azithromycin in the ED Will continue antibiotics, incentive spirometry, chest physiotherapy, nebs Diabetes: Fingersticks with sliding scale coverage, avoid coverage below 200 mg/dL. Hypertension: Blood pressure is stable, hold blood pressure medications for now. HLP: Hold statins for now DVT prophylaxis: Mechanical devices Patient would benefit from 2 midnight stay considering upper GI bleed: Need IV fluid, blood transfusion as well as possible EGD. And close H&H monitoring as well as monitoring for further bleeding. Above management discussed with the patient and his in detail length they both understand and in agreement with the above plan, time spent 70 minute, patient full code. Quality Stroke Does the patient have a stroke diagnosis?: No VTE Prior VTE?: No VTE Risk Level:: Medical - moderate - high VTE Device Contraindication: N/A - Device Ordered VTE Drug Contraindication: N/A - Med Ordered
--- NOTE | 2023-09-15 16:57 | PC.NURSE ---
Transferred to OR with blood running, vss, son / aware
--- NOTE | 2023-09-15 16:58 | PC.NURSE ---
Bladder scanned prior to transport to OR for 179mls, patient without any bladder discomfort
--- NOTE | 2023-09-15 17:06 | P.CONAN_ITS ---
[facility] Active Problems Active Problems: All Active Problems Pneumonia (Acute) Abdominal ascites (Acute) Acute upper GI bleed (Acute) Past Medical History Medical History COVID-19 vaccine series completed BPH (benign prostatic hyperplasia) Loud snoring Post-ERCP acute pancreatitis History of anesthesia reaction History of skin cancer Hyperlipidemia Diabetes mellitus Kerr esophagus Hiatal hernia GERD (gastroesophageal reflux disease) History of hepatitis B Hypertension Functional capacity: independent ambulation Family History Family history of problems with anesthesia: No Surgical History Surgical History Hx of foot surgery Hx of nasal septoplasty History of dental surgery Hx of endoscopic retrograde cholangiopancreatography Hx of appendectomy Hx of colonoscopy History of esophagogastroduodenoscopy (EGD) History of tracheostomy as a child Hx of cholecystectomy History of Problems with Anesthesia: No Social History Social History Are you a primary rn care manager to a significant other at home: No Do you presently have visiting nurse or other home services: No Alcohol intake: former Patient Tobacco Use Status: Former Tobacco user Quit Date: 1971 Smoked in Last 30 Days: No Use of substances other than those prescribed or required for medical reasons: No Advance Directives: No Advance Directives Information Provided: Yes Do you have a plan to hurt others: No Plan Nutrition Risks: No Nutritional Risk service: No Meds Allergies Allergy/AdvReac Type Severity Reaction Status Date / Time [place] nut Allergy Severe Facial Verified 09/15/23 02:16 Swelling, itching Seasonal Allergies Allergy Intermediate Nasal Verified 09/15/23 02:16 congestion Active Medications: Current Medications Albuterol/Ipratropium (Albuterol/Iprat 2.5/0.5mg 3 Ml Ampul.Neb) 3 ml INHALE RQ4H WHILE AWAKE ARACELIS Glucose (Glucose Gel 15 Gm Gel..Gram.) 15 gm PO Q15M PRN; Protocol PRN Reason: per Hypoglycemia Standing Ord. Octreotide Acetate 500 mcg/ (Sodium Chloride) 501 mls @ 50.1 mls/hr IVCONT .Q10H ARACELIS Last Admin: 09/15/23 15:23 Dose: 50 mcg/hr, 50.1 mls/hr Pantoprazole Sodium 80 mg/ (Sodium Chloride) 100 mls @ 10 mls/hr IV .Q10H [facility] Last Admin: 09/15/23 09:47 Dose: 8 mg/hr, 10 mls/hr Albumin Human (Kedbumin 25 %) 100 mls @ 100 mls/hr IV Q6H [facility] Stop: 09/16/23 07:59 Last Infusion: 09/15/23 15:24 Dose: Infused Dextrose (D10) 250 mls @ 750 mls/hr IV Q15M PRN; Protocol PRN Reason: per Hypoglycemia Standing Ord. Ceftriaxone Sodium 1 gm/ (Sodium Chloride) 50 mls @ 100 mls/hr IV Q24H [facility] Insulin Human Lispro (Insulin Lispro 100 Unit/Ml 3 Ml Vial) 0 unit SUBCUT QIDACHS [facility]; Protocol Sodium Chloride (0.9 % Sodium Chloride Flush 3 Ml Syringe) 3 ml IVFLUSH QSHIFT [facility] Home Medications ?Medication ?Instructions ?Recorded ?Confirmed ?Last Taken ?Type acetaminophen 325 mg tablet 650 mg PO Q6H PRN Pain 07/27/20 09/15/23 Unknown History (Tylenol) lisinopril 10 mg tablet 20 mg PO DAILY 07/27/20 09/15/23 09/14/23 History meclizine 12.5 mg tablet 1 tab PO BEDTIME 07/27/20 09/15/23 09/14/23 History metformin 500 mg tablet 1 tab PO BID 07/27/20 09/15/23 09/14/23 History omeprazole 20 mg capsule,delayed 1 cap PO MOWEFR@0630 07/27/20 09/15/23 09/14/23 History release simvastatin 20 mg tablet 1 tab PO BEDTIME 07/27/20 09/15/23 09/14/23 History furosemide 20 mg tablet 40 mg PO DAILY 09/15/23 09/15/23 09/14/23 History nadolol 20 mg tablet 20 mg PO DAILY 09/15/23 09/15/23 09/14/23 History pregabalin 200 mg capsule 200 mg PO BID 09/15/23 09/15/23 09/14/23 History tadalafil 20 mg tablet 10 mg PO DAILY PRN Erectile 09/15/23 09/15/23 Unknown History Dysfunction tamsulosin 0.4 mg capsule 0.4 mg PO BEDTIME 09/15/23 09/15/23 09/14/23 History Exam Height,Weight and Vital Signs: Height 5 ft 5 in Weight 68.353 kg Last Vital Signs Temp 98.2 F 09/15/23 16:28 Pulse 68 09/15/23 16:28 Resp 18 09/15/23 16:28 BP 143/70 H 09/15/23 16:28 Pulse Ox 98 09/15/23 14:38 O2 Del Method Room Air 09/15/23 14:38 O2 Flow Rate 1 09/15/23 08:31 Pertinent Lab Results Pertinent Lab Results: Laboratory Tests 09/15/23 09/15/23 09/15/23 02:41 02:57 03:09 WBC 5.6 RBC 3.19 L Hgb 10.4 L Hct 30.3 L MCV 95.0 MCH 32.6 MCHC 34.3 RDW 13.7 Plt Count 54 L MPV 11.3 Immature Gran % (Auto) 0.4 Neut % (Auto) 71.7 Lymph % (Auto) 14.2 L [place] % (Auto) 9.0 Eos % (Auto) 4.3 H Baso % (Auto) 0.4 Lymph # (Auto) 0.8 L [place] # (Auto) 0.5 Eos # (Auto) 0.2 Baso # (Auto) 0.0 Abs Immat Gran (auto) 0.02 Absolute Neuts (auto) 4.0 Absolute Nucleated RBC 0.000 Nucleated RBC % (auto) 0.0 PT 12.8 INR 1.1 APTT 30.3 Sodium 146 H Potassium 4.0 Chloride 111 H Carbon Dioxide 23 Anion Gap 16 BUN 31 H Creatinine 1.29 Estim Creat Clear Calc 41.0 Estimated GFR 54 Random Glucose 219 H Calcium 9.0 Total Bilirubin 1.5 H AST 42 H ALT 36 Alkaline Phosphatase 206 H Troponin I High Sens < 2.7 Total Protein 6.9 Albumin 3.5 Urine Color Urine Appearance Urine pH Ur Specific [place] Urine Protein Urine Glucose (UA) Urine Ketones Urine Blood Urine Nitrite Ur Leukocyte Esterase Gastric Occult Blood POSITIVE Stool Occult Blood POSITIVE Ethyl Alcohol < 10 Blood Type A Negative Antibody Screen NEGATIVE Crossmatch See Detail 09/15/23 09/15/23 09/15/23 08:45 12:19 14:22 WBC 5.1 RBC 2.94 L Hgb 9.6 L Hct 28.5 L MCV 96.9 MCH 32.7 MCHC 33.7 RDW 13.9 Plt Count 49 L MPV 11.1 Immature Gran % (Auto) 0.4 Neut % (Auto) 75.6 H Lymph % (Auto) 13.3 L [place] % (Auto) 7.2 Eos % (Auto) 3.1 Baso % (Auto) 0.4 Lymph # (Auto) 0.7 L [place] # (Auto) 0.4 Eos # (Auto) 0.2 Baso # (Auto) 0.0 Abs Immat Gran (auto) 0.02 Absolute Neuts (auto) 3.9 Absolute Nucleated RBC 0.000 Nucleated RBC % (auto) 0.0 PT INR APTT Sodium Potassium Chloride Carbon Dioxide Anion Gap BUN Creatinine Estim Creat Clear Calc Estimated GFR Random Glucose Calcium Total Bilirubin AST ALT Alkaline Phosphatase Troponin I High Sens Total Protein 6.2 L Albumin Urine Color Yellow Urine Appearance Clear Urine pH 6.0 Ur Specific [place] >= 1.030 H Urine Protein Negative Urine Glucose (UA) Negative Urine Ketones Negative Urine Blood Negative Urine Nitrite Negative Ur Leukocyte Esterase Negative Gastric Occult Blood Stool Occult Blood Ethyl Alcohol Blood Type Antibody Screen Crossmatch Airway Mallampati Class: III TM Dist: >3cm Neck ROM: Full Denture: Upper and Lower Heart: RRR Lungs: CTA Assessment and Plan Assessment Anesthesia Assessment: Anesthesia Plan Discussed and Chart Reviewed Final Anesthetic Review Family History of Problems with Anesthesia: No History of Problems with Anesthesia: No NPO: Yes ASA Class: III and Emergency Final Preanesthetic Review: Meds/Allgs Chart Reviewed, Consent Obtained/Reviewed, Anes Risks/Benef Reviewed and DNR Form (If Appl.) Patient Risk: Intermediate Procedure Risk: Intermediate Anesthetic Plan Anesthetic Plan: GA Disposition: Standard PACU
--- NOTE | 2023-09-15 17:36 | P.BOP_ITS ---
Brief Operative Note Date of Service: 09/15/23 Pre-op diagnosis: UGI Bleeding Post-op diagnosis: other (Esophageal varices) Procedure: EGD with Banding of esophageal varices x 7 Surgeon: Sd Phillips MD Anesthesia: GETA Was an Instrument Technician used for this Procedure?: No Estimated blood loss (mL): 2.0 Pathology: none sent Condition: stable Disposition: PACU
--- NOTE | 2023-09-15 17:37 | PM.EVENT ---
Event Note Date of Service: 09/15/23 Event Note: GI-EGD-Full note dictated Findings: 1. Grade III-IV esophageal varices---3 chains from [place] at 36cm to 25cm. No active bleeding and no definite stigmata of recent bleeding. 2. Placed 3 bands at 35cm, 3 bands at 32cm, and 1 band at 30cm 3. Minimal proximal portal gastropathy 4. No blood in UGI tract 5. Small hiatal hernia and minimal changes of Kerr's mucosa No ulcer disease, no esophagitis. Rec: Continue his outpatient Nadolol. Continue his IV Sandostatin and PPI infusions. Add Sucralfate suspension QID. Hold off on paracentesis(just minimal fluid seen on today's U/S). No ASA/NSAIDs/Blood thinners correction. F/U labs. NPO except ice and sips for today, and start clear liqs 09/15 if stable. Resume his Furosemide 09/15 if stable. If he rebleeds he would be a candidate for a TIPS placement at a tertiary facility as there was no sign of portal vein thrombosis on today's U/S. D/W in detail. Thanks. Time Spent With Patient Time: Total time managing care of this patient today ____ minutes.
[2023-09-15] MEDS: Albuterol/Iprat 2.5/0.5MG 3 ML AMPUL.NEB INHALE ×2 (17:45→19:39)
[2023-09-15 18:09] LABS: Glucose, Whole Blood 126 mg/dL (60-115)
[2023-09-15 20:03] LABS: MANUAL DIFF FLAG NO
[2023-09-15 20:04] LABS: Basophils Percent Auto 0.8 % (0-2); Eosinophils Absolute Auto 0.2 X10*3/uL (0.0-0.4); Eosinophils Percent Auto 6.2 % (0-4); Hematocrit 31.8 % (42.0-52.0); Hemoglobin 10.5 g/dl (14.0-18.0); Imm Gran Abs Auto 0.04 X10*3/uL (0.00-0.03); Lymphocytes Absolute Auto 0.7 X10*3/uL (1.2-4.9); Mean Corpuscular Hemoglobin 32.2 pg (27.0-33.0); Mean Corpuscular Volume 97.5 fL (80.0-98.0); Mean Platelet Volume 10.6 fL (9.4-12.4); Monocytes Absolute Auto 0.3 X10*3/uL (0.1-1.2); Monocytes Percent Auto 8.5 % (2-11); Neutrophils Absolute Auto 2.5 x10*3/uL (2.0-8.3); Neutrophils Percent Auto 65.5 % (45-73); Red Blood Count 3.26 X10*6/uL (4.60-5.80); Red Cell Distribution Width 15.5 % (11.0-16.0); White Blood Count 3.9 X10*3/uL (4.8-10.8)
[2023-09-15 20:10] LABS: Platelet Count 51 X10*3/uL (160-400)
[2023-09-15] MEDS: Pregabalin 200 MG CAPSULE PO (22:12)
[2023-09-15] MEDS: Sucralfate Oral Suspension 1 GM/10 ML ORAL.SUSP PO (22:12)
[2023-09-15 22:32] LABS: Glucose, Whole Blood 123 mg/dL (60-115)
--- NOTE | 2023-09-15 23:09 | CONS_ITS ---
DATE OF SERVICE: 09/15/2023 REASON FOR CONSULTATION: Upper GI bleeding with known cirrhosis and esophageal varices. HISTORY OF PRESENT ILLNESS: This has been obtained from the patient, his , his nurse, and the medical record. The patient is a 78-year-old male, well known to me from the office with a known underlying history of cirrhosis in relation to fatty liver. His last upper endoscopy in 2021 did reveal esophageal varices, at which time his diagnosis of cirrhosis was made. He has never had bleeding from the GI tract in the past. He has been maintained on nadolol and omeprazole. In general, he had been doing well. His main issue with the cirrhosis has been that of ascites. He has not had any previous history of jaundice, hepatic encephalopathy, spontaneous bacterial peritonitis, nor GI bleeding. He was awakened early this morning with some upper abdominal discomfort and suddenly had some hematemesis. This occurred 1 more time at home and once or twice more here in the ER. He has not had any hematemesis here for approximately 10 or 12 hours. He denies any melena. He denies any further abdominal pain. He denies any recent use of aspirin, NSAIDs, and has no history of alcohol abuse. There is no previous history of ulcer disease. He does have a history of reflux and Kerr esophagus, but denies any new symptoms of heartburn, dysphagia, nor anorexia. His bowel movements otherwise have been regular. Since in the ER, he has otherwise been stable. He has been started on IV pantoprazole and IV Sandostatin. He has received a unit of platelets and is going to receive 1 unit of blood. MEDICATIONS: At home included furosemide 40 mg daily, lisinopril, meclizine p.r.n., metformin, nadolol, omeprazole, pregabalin, simvastatin, and tamsulosin. PAST MEDICAL HISTORY: Cirrhosis as above in relation to fatty liver. Known esophageal varices, but without previous bleeding. Hypertension. Enlarged prostate. Hyperlipidemia. There is no history of [place] nor stroke. He does have [id number] diabetes mellitus. History of choledocholithiasis, treated by ERCP and sphincterotomy in 2013. SURGERIES: Include cholecystectomy, tracheostomy as a child, appendectomy and nasal surgery. SOCIAL HISTORY: He does not smoke nor use any alcohol. He is . He is retired. FAMILY HISTORY: Noncontributory. REVIEW OF SYSTEMS: CONSTITUTIONAL: He had been feeling well up until today. He just returned last evening from a 3-day trip to the [facility] in [place]. CARDIAC: No chest pain. PULMONARY: No coughing or hemoptysis. GI: As above. URINARY: No dysuria, no hematuria. NEUROLOGIC: No headache or seizures. PHYSICAL EXAMINATION: GENERAL: The patient is a pleasant, alert, comfortable-appearing male. SKIN: Warm and dry. Nonjaundiced. Anicteric sclerae. Moist mucous membranes. NECK: Supple without lymphadenopathy. CHEST: Clear. CARDIAC: Normal S1, S2. ABDOMEN: Soft, nondistended. There is no focal tenderness nor mass. EXTREMITIES: Without edema. NEUROLOGIC: He is alert, oriented, answers questions appropriately, and there is no asterixis. LABORATORY DATA: White blood cell count 5.6, hemoglobin 10.4 at 2:40 a.m. Hemoglobin 9.6 at 8:45 a.m. Hemoglobin last month was 10.6. Platelets 49,000. White blood cell count 5.1. PT 12.8 with INR 1.1. Sodium 146, potassium 4.0, chloride 111, CO2 23, BUN 31 compared to 25 at the end of July. Creatinine 1.3. Total bilirubin 1.5, AST 42, ALT 36, alkaline phosphatase 206, albumin 3.5. IMAGING: He did have a CT scan of the chest and abdomen this morning. This revealed a right pleural effusion with some right lung base consolidation. The liver was consistent with cirrhosis, but without mass. Pancreas was unremarkable. Spleen was enlarged. There was no evidence of any active bleeding. He also had an abdominal ultrasound today that describes a patent portal vein without any sign of thrombosis. There is only trace amount of ascites in the right abdomen and a small volume ascites in the left lower quadrant. IMPRESSION: Given the patient's presentation, this is most consistent with probable esophageal variceal bleeding. At the present time, he appears stable without any sign of hepatic encephalopathy, spontaneous bacterial peritonitis, nor jaundice. At this point, I will continue supportive care as you are doing with platelet and packed red blood cell transfusion. I will continue his IV Sandostatin and IV pantoprazole infusions. He will continue monitoring his laboratories. I would recommend upper endoscopy today for possible banding of esophageal varices. This will be done with probable general anesthesia. Full consent obtained for this, including risks of bleeding and perforation. If he does continue to have bleeding from a variceal source, the next step would be transfer to a tertiary hospital for consideration of a TIPS placement. This has all been discussed in detail with the patient and his today and they are comfortable with this plan. Thank you for the consultation. MD YOANA Spangler/JOSE / [id number]
[2023-09-16] VITALS (10 sets, daily range): BP systolic 120–159; BP diastolic 59–72; PULSE 52–71; RESP 16–20; TEMP 36.6–37; O2SAT 89–95
--- NOTE | 2023-09-16 | ECG_ITS ---
Test Reason : chest pain Blood Pressure : / mmHG Vent. Rate : 063 BPM Atrial Rate : 063 BPM P-R Int : 196 ms QRS Dur : 088 ms QT Int : 426 ms P-R-T Axes : 000 189 167 degrees QTc Int : 435 ms Suspect limb lead reversal, interpretation assumes no reversal Normal sinus rhythm Right superior axis deviation Inferior infarct , age undetermined Cannot rule out Anterior infarct , age undetermined Abnormal ECG When compared with ECG of 15-SEP-2023 02:26, QRS axis Shifted left Inferior infarct is now Present T wave inversion now evident in Lateral leads please repeat EKG Referred By: Diego Ceballos Electronically Signed By:NISHANT CORRLAES MD
--- NOTE | 2023-09-16 | ECG_ITS ---
Test Reason : irregular on monitor Blood Pressure : / mmHG Vent. Rate : 054 BPM Atrial Rate : 054 BPM P-R Int : 208 ms QRS Dur : 090 ms QT Int : 456 ms P-R-T Axes : 001 011 020 degrees QTc Int : 432 ms Sinus bradycardia with sinus arrhythmia Otherwise normal ECG When compared with ECG of 16-SEP-2023 02:24, Questionable change in QRS axis Criteria for Inferior infarct are no longer Present T wave inversion no longer evident in Lateral leads Referred By: Jeanine Melendez Electronically Signed By:Kaiser Watkins
--- NOTE | 2023-09-16 00:04 | OP_ITS ---
DATE OF SERVICE: 09/15/2023 SURGEON: Sd Phillips MD INDICATIONS: The patient presents for evaluation of upper GI bleeding, known cirrhosis, and known esophageal varices. Full consent has been obtained from him for this, including risks of bleeding and perforation. PREOPERATIVE DIAGNOSIS: POSTOPERATIVE DIAGNOSIS: PROCEDURE PERFORMED: Esophagogastroduodenoscopy with banding of esophageal varices. ESTIMATED BLOOD LOSS: COMPLICATIONS: ANESTHESIA: General anesthesia. ASSISTANTS: SPECIMENS: PREOPERATIVE DIAGNOSES: Upper gastrointestinal bleeding, cirrhosis, known history of esophageal varices. POSTOPERATIVE DIAGNOSES: Esophageal varices, mild portal gastropathy, small hiatal hernia, and changes of reflux with small areas of Kerr mucosa. DESCRIPTION OF PROCEDURE: The patient was placed in the supine position. The Olympus video gastroscope was passed in the posterior oropharynx and upper esophagus under direct vision. The scope was passed slowly to the distal esophagus. The gastroesophageal junction appeared at 35 cm. This area was notable for small, less than 1 cm areas of known Kerr's mucosa. There was no esophagitis nor ulceration. The scope entered the stomach. There was a small hiatal hernia. The scope was advanced to the pylorus. The duodenum was cannulated to the descending portion. The duodenum including the bulb appeared normal without mass or ulceration. There was no blood nor coffee-grounds in the duodenum. The scope was withdrawn back in the stomach. The gastric antrum appeared normal. There was good peristalsis. The scope was retroflexed visualizing the proximal stomach carefully which was consistent with a portal gastropathy, but there was no evidence of any mass, ulceration, varices, nor bleeding. The scope was straightened. There was no blood nor coffee-grounds material in the stomach. The scope was withdrawn back to the esophagus. Extending from the EG junction to 25 cm were prominent grade 3-4 esophageal varices. There appeared to be three separate chains of these. There was no active bleeding and no definitive sign of any stigmata of recent bleeding. Nonetheless, given his presentation, I did opt to band the varices. The scope was withdrawn. A 2nd scope with the banding device already applied was then passed into the posterior oropharynx and upper esophagus under direct vision. The scope was passed to the distal esophagus. At 35 cm, I placed a single band on each variceal chain with good deployment. There was no active bleeding. The more proximal varices did have some relative decompression at that point. I then placed a single band on each chain at 32 cm with again good deployment and no bleeding. Another band was placed on what appeared to be some residual variceal chain at 30 cm with good deployment. I did not visualize any sign of active bleeding post-banding. The scope was then withdrawn from the patient. He tolerated the procedure well and was returned to the recovery area in stable condition. IMPRESSION: 1. Esophageal varices, status post banding. 2. Small hiatal hernia, gastroesophageal reflux, and small areas of Kerr's esophagus. PLAN: The patient will continue his IV Sandostatin and IV pantoprazole infusions. His beta-klarissa will be resumed by tomorrow. He will also start sucralfate suspension q.i.d. He can have some ice and sips of liquid tonight, but if stable he can have a clear liquid diet tomorrow. At this point, I think the paracentesis can be canceled as there was just minimal fluid seen on the ultrasound today. He has already been on antibiotics since being in the ER. His furosemide will be resumed tomorrow if stable. If he shows evidence of repeat bleeding, then I think he would be a candidate for transfer to a tertiary facility for a TIPS placement, as there was no sign of any portal vein thrombosis on today's ultrasound. This has all been discussed with the patient's in detail. MD YOANA Spangler/JOSE / [id number] ELA
[2023-09-16] MEDS: Octreotide Acetate 500 MCG in 0.9 % Sodium Chloride 500 ML 50.1 MCG IVCONT ×3 (00:53→21:21)
[2023-09-16] MEDS: 0.9 % Sodium Chloride Flush 3 ML SYRINGE IVFLUSH ×4 (00:54→17:33)
[2023-09-16] MEDS: dexAMETHasone sod phosphate 10 MG/ML VIAL IVPUSH (02:27)
[2023-09-16] MEDS: Furosemide 20 MG/2 ML VIAL IVPUSH (02:35)
[2023-09-16] MEDS: Ampicillin Sodium/Sulbactam Na 1.5 GM in 0.9 % Sodium Chloride 100 ML IV ×4 (04:02→21:10)
[2023-09-16] MEDS: Pantoprazole Sodium 80 MG in 0.9 % Sodium Chloride 80 ML 10 MG IV ×2 (05:59→17:33)
[2023-09-16] MEDS: Sucralfate Oral Suspension 1 GM/10 ML ORAL.SUSP PO ×4 (06:00→21:14)
--- NOTE | 2023-09-16 06:49 | P.EN_ITS ---
Event Note Date of Service: 09/16/23 Event Note: 1:56 AM - Contacted by nursing to notify started to complain of acute left chest discomfort that is reproducible and also reported flesh back on his stroke. I did evaluate patient. He was not in distress. He did complain of left-sided chest pain. Pain increases with inspiration and palpation. He also c/o fullness in his throat that is affecting his speech that has been getting worse since he had the endoscopy. According to nursing his O2 sats were dropping while falling asleep. He has not requiring 2 liters/minute supplemental oxygen. Cardiopulmonary exam is remarkable for right base crackles, no wheezing or rhonchi. Oropharynx: Edematous and erythematous uvula. Patient's uvula is quite swollen possible secondary to recent procedure. Interventions: * Decadron 10 mg IV. * CXR showed faint right mid to lower lung field opacity. Empiric IV antibiotic therapy with Unasyn started. Time Spent With Patient Time: Total time managing care of this patient today ____ minutes.
[2023-09-16 06:53] LABS: MANUAL DIFF FLAG NO
[2023-09-16 06:56] LABS: Ammonia 56 umol/L (13-55)
[2023-09-16 06:58] LABS: Basophils Percent Auto 0.5 % (0-2); Eosinophils Absolute Auto 0.1 X10*3/uL (0.0-0.4); Eosinophils Percent Auto 1.4 % (0-4); Hematocrit 32.1 % (42.0-52.0); Hemoglobin 10.7 g/dl (14.0-18.0); Imm Gran Abs Auto 0.04 X10*3/uL (0.00-0.03); Imm Gran Pct Auto 0.9 % (0.0-0.4); Lymphocytes Absolute Auto 0.6 X10*3/uL (1.2-4.9); Mean Corpuscular HGB Conc 33.3 g/dl (31.0-36.0); Mean Corpuscular Volume 96.1 fL (80.0-98.0); Mean Platelet Volume 11.3 fL (9.4-12.4); Monocytes Absolute Auto 0.1 X10*3/uL (0.1-1.2); Monocytes Percent Auto 2.6 % (2-11); Neutrophils Absolute Auto 3.5 x10*3/uL (2.0-8.3); Neutrophils Percent Auto 81.6 % (45-73); Red Blood Count 3.34 X10*6/uL (4.60-5.80); Red Cell Distribution Width 15.6 % (11.0-16.0); White Blood Count 4.2 X10*3/uL (4.8-10.8)
[2023-09-16 06:59] LABS: INTERNATIONAL NORM RATIO 1.1 (0.9-1.1); Prothrombin Time 13.6 SEC (11.1-13.3)
[2023-09-16 07:03] LABS: Alanine Aminotransferase 32 U/L (0-40); Albumin Level 3.6 g/dL (3.5-5.0); Alkaline Phosphatase 165 U/L (39-117); Anion Gap 15 (12-20); Aspartate Amino Transferase 35 U/L (5-37); Bilirubin Total 3.4 mg/dL (0.0-1.0); Blood Urea Nitrogen 29 mg/dL (9-16); Calcium 8.1 mg/dL (8.4-10.2); Carbon Dioxide 19 mmol/L (22-29); Chloride 116 mmol/L (96-108); Estimated Glomerular Filt Rate > 60; Glucose Random 185 mg/dL (60-115); Sodium 146 mmol/L (135-145); Total Protein 6.8 g/dL (6.5-8.0)
[2023-09-16 07:06] LABS: Platelet Count 51 X10*3/uL (160-400)
--- NOTE | 2023-09-16 07:24 | PM.EVENT ---
Event Note Date of Service: 09/16/23 Event Note: Time Spent With Patient Time: Total time managing care of this patient today ____ minutes.
[2023-09-16 07:39] LABS: Glucose, Whole Blood 197 mg/dL (60-115)
[2023-09-16] MEDS: Albuterol/Iprat 2.5/0.5MG 3 ML AMPUL.NEB INHALE ×4 (07:58→19:46)
[2023-09-16 09:10] LABS: Troponin-I High Sensitivity 3.1 ng/L (<3.5-35.0)
[2023-09-16] MEDS: nadoloL 20 MG TABLET PO (09:30)
[2023-09-16] MEDS: Pregabalin 200 MG CAPSULE PO ×2 (09:31→21:09)
[2023-09-16] MEDS: Meclizine HCl 12.5 MG TABLET PO ×2 (09:31→21:09)
[2023-09-16] MEDS: Furosemide 40 MG TABLET PO (09:31)
[2023-09-16 10:41] LABS: Bilirubin Direct 1.2 mg/dL (0.0-0.5)
[2023-09-16 11:40] LABS: Glucose, Whole Blood 344 mg/dL (60-115)
[2023-09-16] MEDS: Insulin Lispro 100 UNIT/ML 3 ML VIAL SUBCUT ×2 (12:17→17:33)
--- NOTE | 2023-09-16 12:43 | P.PNIM_ITS ---
Subjective Subjective Date of Service: 09/16/23 Interval History: overnight events noted-uvula swelling post procedure/sob anemia upper Gi bleed. Review of Systems no new episode of bleeding today sob improving no fevers Physical Exam 2 Vital Signs: Vital Signs: Last Vital Signs Temp 97.9 F 09/16/23 11:33 Pulse 58 09/16/23 11:58 Resp 18 09/16/23 11:58 BP 145/67 H 09/16/23 11:33 Pulse Ox 94 09/16/23 11:33 O2 Del Method Nasal Cannula 09/16/23 11:33 O2 Flow Rate 2 09/16/23 11:33 BMI result Body Mass Index 25.1 Appearance: Alert.? Oriented X3,sob improving Eyes: uvula swelling imporving-please see Dr francisco event note pic. cvs: rrr, [id number] . res: cair entry fair ,diminshed right side and few faint cracles. abd: no rebound or guarding ,nt, bs present. ext pulses present , no cyanosis . neuro: axo3 , nonfocal. Objective Data Active Medications Albuterol/Ipratropium (Albuterol/Iprat 2.5/0.5mg 3 Ml Ampul.Neb) 3 ml INHALE RQ4H WHILE AWAKE ARACELIS Last Admin: 09/16/23 11:58 Dose: 3 ml Documented By: MEGAN Atorvastatin Calcium (Atorvastatin Calcium 10 Mg Tablet) 10 mg PO BEDTIME [facility] Diphenhydramine HCl (Diphenhydramine Hcl 25 Mg Capsule) 25 mg PO Q6H PRN PRN Reason: throat swellin Furosemide (Furosemide 40 Mg Tablet) 40 mg PO DAILY ARACELIS; Protocol Last Admin: 09/16/23 09:31 Dose: 40 mg Documented By: ALBERT Glucose (Glucose Gel 15 Gm Gel..Gram.) 15 gm PO Q15M PRN; Protocol PRN Reason: per Hypoglycemia Standing Ord. Octreotide Acetate 500 mcg/ (Sodium Chloride) 501 mls @ 50.1 mls/hr IVCONT .Q10H [facility] Last Admin: 09/16/23 10:09 Dose: 50 mcg/hr, 50.1 mls/hr Documented By: RIORO Pantoprazole Sodium 80 mg/ (Sodium Chloride) 100 mls @ 10 mls/hr IV .Q10H [facility]ACELIS Last Admin: 09/16/23 05:59 Dose: 8 mg/hr, 10 mls/hr Documented By: ELAINE Dextrose (D10) 250 mls @ 750 mls/hr IV Q15M PRN; Protocol PRN Reason: per Hypoglycemia Standing Ord. Ampicillin Sodium/Sulbactam (Sodium 1.5 gm/ Sodium Chloride) 100 mls @ 200 mls/hr IV Q6H [facility] Last Infusion: 09/16/23 10:03 Dose: Infused Documented By: ALBERT Insulin Human Lispro (Insulin Lispro 100 Unit/Ml 3 Ml Vial) 0 unit SUBCUT QIDAS [facility]; Protocol Last Admin: 09/16/23 12:17 Dose: 8 unit Documented By: ALBERT Meclizine HCl (Meclizine Hcl 12.5 Mg Tablet) 12.5 mg PO BEDTIME [facility] Last Admin: 09/16/23 09:31 Dose: 12.5 mg Documented By: ALBERT Nadolol (Nadolol 20 Mg Tablet) 20 mg PO DAILY [facility]; Protocol Last Admin: 09/16/23 09:30 Dose: 20 mg Documented By: ALBERT Pregabalin (Pregabalin 200 Mg Capsule) 200 mg PO BID [facility] Last Admin: 09/16/23 09:31 Dose: 200 mg Documented By: ALBERT Sodium Chloride (0.9 % Sodium Chloride Flush 3 Ml Syringe) [facility] Last Admin: 09/16/23 09:28 Dose: 3 ml Documented By: ALBERT Sucralfate (Sucralfate Oral Suspension 1 Gm/10 Ml Oral.Susp) 1 gm PO QIDACHS [facility] Last Admin: 09/16/23 12:17 Dose: 1 gm Documented By: ALBERT Tamsulosin HCl (Tamsulosin Hcl 0.4 Mg Capsule) 0.4 mg PO BEDTIME [facility] Labs 09/16/23 06:36 09/16/23 06:36 Labs: Laboratory Results - last 24 hr 09/15/23 09/15/23 09/15/23 02:41 14:22 17:52 MCV MCH MCHC RDW Plt Count MPV Immature Gran % (Auto) Neut % (Auto) Lymph % (Auto) [place] % (Auto) Eos % (Auto) Baso % (Auto) Lymph # (Auto) [place] # (Auto) Eos # (Auto) Baso # (Auto) Abs Immat Gran (auto) Absolute Neuts (auto) Absolute Nucleated RBC Nucleated RBC % (auto) PT INR Anion Gap Estim Creat Clear Calc Estimated GFR POC Glucose 126 H Random Glucose Fasting Glucose Calcium Total Bilirubin Direct Bilirubin AST ALT Alkaline Phosphatase Ammonia Troponin I High Sens Total Protein 6.2 L Albumin Blood Type A Negative Antibody Screen NEGATIVE Crossmatch See Detail 09/15/23 09/15/23 09/16/23 19:59 22:18 06:36 MCV 97.5 96.1 MCH 32.2 MCHC 33.0 RDW 15.5 Plt Count 51 L MPV 10.6 Immature Gran % (Auto) 1.0 H Neut % (Auto) 65.5 Lymph % (Auto) 18.0 L [place] % (Auto) 8.5 Eos % (Auto) 6.2 H Baso % (Auto) 0.8 Lymph # (Auto) 0.7 L [place] # (Auto) 0.3 Eos # (Auto) 0.2 Baso # (Auto) 0.0 Abs Immat Gran (auto) 0.04 H Absolute Neuts (auto) 2.5 Absolute Nucleated RBC 0.000 Nucleated RBC % (auto) 0.0 PT INR Anion Gap Estim Creat Clear Calc Estimated GFR POC Glucose 123 H Random Glucose Fasting Glucose Calcium Total Bilirubin Direct Bilirubin AST ALT Alkaline Phosphatase Ammonia Troponin I High Sens Total Protein Albumin Blood Type Antibody Screen Crossmatch 09/16/23 09/16/23 09/16/23 06:36 06:36 06:36 MCV Cancelled MCH 32.0 Cancelled MCHC 33.3 Cancelled RDW 15.6 Plt Count MPV Immature Gran % (Auto) Neut % (Auto) Lymph % (Auto) [place] % (Auto) Eos % (Auto) Baso % (Auto) Lymph # (Auto) [place] # (Auto) Eos # (Auto) Baso # (Auto) Abs Immat Gran (auto) Absolute Neuts (auto) Absolute Nucleated RBC Nucleated RBC % (auto) PT INR Anion Gap Estim Creat Clear Calc Estimated GFR POC Glucose Random Glucose Fasting Glucose Calcium Total Bilirubin Direct Bilirubin AST ALT Alkaline Phosphatase Ammonia Troponin I High Sens Total Protein Albumin Blood Type Antibody Screen Crossmatch 05/19/24 05/19/24 05/19/24 06:36 06:36 06:36 MCV MCH MCHC RDW Cancelled Plt Count 51 L Cancelled MPV 11.3 Cancelled Immature Gran % (Auto) 0.9 H Neut % (Auto) 81.6 H Lymph % (Auto) 13.0 L [place] % (Auto) 2.6 Eos % (Auto) 1.4 Baso % (Auto) 0.5 Lymph # (Auto) 0.6 L [place] # (Auto) 0.1 Eos # (Auto) 0.1 Baso # (Auto) 0.0 Abs Immat Gran (auto) 0.04 H Absolute Neuts (auto) 3.5 Absolute Nucleated RBC 0.000 Nucleated RBC % (auto) PT INR Anion Gap Estim Creat Clear Calc Estimated GFR POC Glucose Random Glucose Fasting Glucose Calcium Total Bilirubin Direct Bilirubin AST ALT Alkaline Phosphatase Ammonia Troponin I High Sens Total Protein Albumin Blood Type Antibody Screen Crossmatch 09/16/23 09/16/23 09/16/23 06:36 06:36 06:36 MCV MCH MCHC RDW Plt Count MPV Immature Gran % (Auto) Neut % (Auto) Lymph % (Auto) [place] % (Auto) Eos % (Auto) Baso % (Auto) Lymph # (Auto) [place] # (Auto) Eos # (Auto) Baso # (Auto) Abs Immat Gran (auto) Absolute Neuts (auto) Absolute Nucleated RBC Cancelled Nucleated RBC % (auto) 0.0 Cancelled PT 13.6 H INR 1.1 Anion Gap Cancelled 15 Estim Creat Clear Calc Cancelled Estimated GFR POC Glucose Random Glucose Fasting Glucose Calcium Total Bilirubin Direct Bilirubin AST ALT Alkaline Phosphatase Ammonia Troponin I High Sens Total Protein Albumin Blood Type Antibody Screen Crossmatch 09/16/23 09/16/23 09/16/23 06:36 06:36 06:36 MCV MCH MCHC RDW Plt Count MPV Immature Gran % (Auto) Neut % (Auto) Lymph % (Auto) [place] % (Auto) Eos % (Auto) Baso % (Auto) Lymph # (Auto) [place] # (Auto) Eos # (Auto) Baso # (Auto) Abs Immat Gran (auto) Absolute Neuts (auto) Absolute Nucleated RBC Nucleated RBC % (auto) PT INR Anion Gap Estim Creat Clear Calc 54.0 Estimated GFR Cancelled > 60 POC Glucose Random Glucose 185 H Fasting Glucose Cancelled Calcium Cancelled 8.1 L D Total Bilirubin Cancelled Direct Bilirubin AST ALT Alkaline Phosphatase Ammonia Troponin I High Sens Total Protein Albumin Blood Type Antibody Screen Crossmatch 09/16/23 09/16/23 09/16/23 06:36 06:36 06:36 MCV MCH MCHC RDW Plt Count MPV Immature Gran % (Auto) Neut % (Auto) Lymph % (Auto) [place] % (Auto) Eos % (Auto) Baso % (Auto) Lymph # (Auto) [place] # (Auto) Eos # (Auto) Baso # (Auto) Abs Immat Gran (auto) Absolute Neuts (auto) Absolute Nucleated RBC Nucleated RBC % (auto) PT INR Anion Gap Estim Creat Clear Calc Estimated GFR POC Glucose Random Glucose Fasting Glucose Calcium Total Bilirubin 3.4 H Direct Bilirubin Cancelled 1.2 H AST Cancelled 35 ALT Cancelled Alkaline Phosphatase Ammonia Troponin I High Sens Total Protein Albumin Blood Type Antibody Screen Crossmatch 09/16/23 09/16/23 09/16/23 06:36 06:36 06:36 MCV MCH MCHC RDW Plt Count MPV Immature Gran % (Auto) Neut % (Auto) Lymph % (Auto) [place] % (Auto) Eos % (Auto) Baso % (Auto) Lymph # (Auto) [place] # (Auto) Eos # (Auto) Baso # (Auto) Abs Immat Gran (auto) Absolute Neuts (auto) Absolute Nucleated RBC Nucleated RBC % (auto) PT INR Anion Gap Estim Creat Clear Calc Estimated GFR POC Glucose Random Glucose Fasting Glucose Calcium Total Bilirubin Direct Bilirubin AST ALT 32 Alkaline Phosphatase Cancelled 165 H Ammonia 56 H Troponin I High Sens 3.1 Total Protein Cancelled 6.8 Albumin Cancelled Blood Type Antibody Screen Crossmatch 09/16/23 09/16/23 09/16/23 06:36 07:26 11:36 MCV MCH MCHC RDW Plt Count MPV Immature Gran % (Auto) Neut % (Auto) Lymph % (Auto) [place] % (Auto) Eos % (Auto) Baso % (Auto) Lymph # (Auto) [place] # (Auto) Eos # (Auto) Baso # (Auto) Abs Immat Gran (auto) Absolute Neuts (auto) Absolute Nucleated RBC Nucleated RBC % (auto) PT INR Anion Gap Estim Creat Clear Calc Estimated GFR POC Glucose 197 H 344 H Random Glucose Fasting Glucose Calcium Total Bilirubin Direct Bilirubin AST ALT Alkaline Phosphatase Ammonia Troponin I High Sens Total Protein Albumin 3.6 Blood Type Antibody Screen Crossmatch Assessment and Plan (1) Pneumonia: Status: Acute (2) Abdominal ascites: Status: Acute (3) Acute upper GI bleed: Status: Acute Assessment and Plan: 78 y/o M HTN, acid reflux disease, type 2 diabetes, elevatedcholesterol, history of skin cancer, BPH, Kerr's esophagus, arthritis of the feet, Nonalcoholic- with upper gi bleed: Possible Upper GI bleed: ? CT abdomen possible liver cirrhosis, patient also has history of varices. given 1 PRBC and platelets Monitor H&H stable in 10.7/32.1 ,platlets 51 also slightly improving egd 09/14: 1. Grade III-IV esophageal varices---3 chains from EG Junction at 36cm to 25cm. No active bleeding and no definite stigmata of recent bleeding. 2. Placed 3 bands at 35cm, 3 bands at 32cm, and 1 band at 30cm 3. Minimal proximal portal gastropathy 4. No blood in UGI tract 5. Small hiatal hernia and minimal changes of Kerr's mucosa No ulcer disease, no esophagitis. plan: continue PPI and octreotide drip,bb,clear liquid diet,Add Sucralfate suspension QID,Hold off on paracentesis(just minimal fluid seen on today's U/S). 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 mild acute hypernatremia:sec to npo yesterday encouraged for po inatke clear liquid diet po fluids 300 ml q6hr AHRF multifactorial possible question of pneumonia versus atelectasis/uvula swellin (question irritation ) post procedure uvula swelling post procedure/sob:received decdrone , seems improving Given ceftriaxone and azithromycin in the ED. continue antibiotics-oxygen(taper to titrate sats of 90%),iv unasyn (started 09/16/23), incentive spirometry, chest physiotherapy, nebs Diabetes: Fingersticks with sliding scale coverage, avoid coverage below 200 mg/dL. Hypertension: Blood pressure is stable, hold blood pressure medications for now. HLP: Hold statins for now DVT prophylaxis: Mechanical devices ongoing need for hospital stay for considering upper GI bleed,electrolytic monitering ,AHRF: Need IV antibiotics ,oxygen need, And close H&H monitoring as well as monitoring for further bleeding. Quality Stroke Does the patient have a stroke diagnosis?: No VTE Prior VTE?: No VTE Risk Level:: Medical - moderate - high VTE Device Contraindication: N/A - Device Ordered VTE Drug Contraindication: N/A - Med Ordered
[2023-09-16 16:16] LABS: Glucose, Whole Blood 265 mg/dL (60-115)
--- NOTE | 2023-09-16 17:04 | P.PNGI_ITS ---
Subjective Subjective Date of Service: 09/16/23 Interval History: Overnight course noted. Patient is comfortable. Denies N/V, SOB, abdominal pain. Had 1 black stool this morning. Tolerating clear liquids. His throat feels much better. Critical Care Time (minutes): 0 Physical Exam 2 Vital Signs: Vital Signs: Last Vital Signs Temp 98.5 F 09/16/23 15:50 Pulse 60 09/16/23 15:57 Resp 16 09/16/23 15:57 BP 120/59 L 09/16/23 15:50 Pulse Ox 93 09/16/23 15:50 O2 Del Method Room Air 09/16/23 15:50 O2 Flow Rate 2 09/16/23 11:33 BMI result Body Mass Index 25.1 Const: General: cooperative, healthy appearing, comfortable, no acute distress, well developed, alert and awake Orientation/consciousness: oriented to person, oriented to place, oriented to time and patient oriented x3 HEENT: Mouth: other (Uvula appears a little ecchymotic but not swollen) Eyes: Sclerae: sclerae normal GI: Other: Abd-Soft, +BS, NT, Nondistended Neuro: General: oriented to person, oriented to place, oriented to time and patient oriented x3 Cognition (Neuro): normal cognition Objective Data Labs 09/16/23 06:36 09/16/23 06:36 Labs: Laboratory Results - last 24 hr 09/15/23 09/15/23 09/15/23 02:41 17:52 19:59 WBC 3.9 L RBC 3.26 L Hgb 10.5 L Hct 31.8 L MCV 97.5 MCH 32.2 MCHC 33.0 RDW 15.5 Plt Count 51 L MPV 10.6 Immature Gran % (Auto) 1.0 H Neut % (Auto) 65.5 Lymph % (Auto) 18.0 L [place] % (Auto) 8.5 Eos % (Auto) 6.2 H Baso % (Auto) 0.8 Lymph # (Auto) 0.7 L [place] # (Auto) 0.3 Eos # (Auto) 0.2 Baso # (Auto) 0.0 Abs Immat Gran (auto) 0.04 H Absolute Neuts (auto) 2.5 Absolute Nucleated RBC 0.000 Nucleated RBC % (auto) 0.0 PT INR Sodium Potassium Chloride Carbon Dioxide Anion Gap BUN Creatinine Estim Creat Clear Calc Estimated GFR POC Glucose 126 H Random Glucose Fasting Glucose Calcium Total Bilirubin Direct Bilirubin AST ALT Alkaline Phosphatase Ammonia Troponin I High Sens Total Protein Albumin Crossmatch See Detail 09/15/23 09/16/23 09/16/23 22:18 06:36 06:36 WBC 4.2 L Cancelled RBC 3.34 L Hgb Hct MCV MCH MCHC RDW Plt Count MPV Immature Gran % (Auto) Neut % (Auto) Lymph % (Auto) [place] % (Auto) Eos % (Auto) Baso % (Auto) Lymph # (Auto) [place] # (Auto) Eos # (Auto) Baso # (Auto) Abs Immat Gran (auto) Absolute Neuts (auto) Absolute Nucleated RBC Nucleated RBC % (auto) PT INR Sodium Potassium Chloride Carbon Dioxide Anion Gap BUN Creatinine Estim Creat Clear Calc Estimated GFR POC Glucose 123 H Random Glucose Fasting Glucose Calcium Total Bilirubin Direct Bilirubin AST ALT Alkaline Phosphatase Ammonia Troponin I High Sens Total Protein Albumin Crossmatch 09/16/23 09/16/23 09/16/23 06:36 06:36 06:36 WBC RBC Cancelled Hgb 10.7 L Cancelled Hct 32.1 L Cancelled MCV 96.1 MCH MCHC RDW Plt Count MPV Immature Gran % (Auto) Neut % (Auto) Lymph % (Auto) [place] % (Auto) Eos % (Auto) Baso % (Auto) Lymph # (Auto) [place] # (Auto) Eos # (Auto) Baso # (Auto) Abs Immat Gran (auto) Absolute Neuts (auto) Absolute Nucleated RBC Nucleated RBC % (auto) PT INR Sodium Potassium Chloride Carbon Dioxide Anion Gap BUN Creatinine Estim Creat Clear Calc Estimated GFR POC Glucose Random Glucose Fasting Glucose Calcium Total Bilirubin Direct Bilirubin AST ALT Alkaline Phosphatase Ammonia Troponin I High Sens Total Protein Albumin Crossmatch 09/16/23 09/16/23 09/16/23 06:36 06:36 06:36 WBC RBC Hgb Hct MCV Cancelled MCH 32.0 Cancelled MCHC 33.3 Cancelled RDW 15.6 Plt Count MPV Immature Gran % (Auto) Neut % (Auto) Lymph % (Auto) [place] % (Auto) Eos % (Auto) Baso % (Auto) Lymph # (Auto) [place] # (Auto) Eos # (Auto) Baso # (Auto) Abs Immat Gran (auto) Absolute Neuts (auto) Absolute Nucleated RBC Nucleated RBC % (auto) PT INR Sodium Potassium Chloride Carbon Dioxide Anion Gap BUN Creatinine Estim Creat Clear Calc Estimated GFR POC Glucose Random Glucose Fasting Glucose Calcium Total Bilirubin Direct Bilirubin AST ALT Alkaline Phosphatase Ammonia Troponin I High Sens Total Protein Albumin Crossmatch 09/16/23 09/16/23 09/16/23 06:36 06:36 06:36 WBC RBC Hgb Hct MCV MCH MCHC RDW Cancelled Plt Count 51 L Cancelled MPV 11.3 Cancelled Immature Gran % (Auto) 0.9 H Neut % (Auto) 81.6 H Lymph % (Auto) 13.0 L [place] % (Auto) 2.6 Eos % (Auto) 1.4 Baso % (Auto) 0.5 Lymph # (Auto) 0.6 L [place] # (Auto) 0.1 Eos # (Auto) 0.1 Baso # (Auto) 0.0 Abs Immat Gran (auto) 0.04 H Absolute Neuts (auto) 3.5 Absolute Nucleated RBC 0.000 Nucleated RBC % (auto) PT INR Sodium Potassium Chloride Carbon Dioxide Anion Gap BUN Creatinine Estim Creat Clear Calc Estimated GFR POC Glucose Random Glucose Fasting Glucose Calcium Total Bilirubin Direct Bilirubin AST ALT Alkaline Phosphatase Ammonia Troponin I High Sens Total Protein Albumin Crossmatch 09/16/23 09/16/23 09/16/23 06:36 06:36 06:36 WBC RBC Hgb Hct MCV MCH MCHC RDW Plt Count MPV Immature Gran % (Auto) Neut % (Auto) Lymph % (Auto) [place] % (Auto) Eos % (Auto) Baso % (Auto) Lymph # (Auto) [place] # (Auto) Eos # (Auto) Baso # (Auto) Abs Immat Gran (auto) Absolute Neuts (auto) Absolute Nucleated RBC Cancelled Nucleated RBC % (auto) 0.0 Cancelled PT 13.6 H INR 1.1 Sodium Cancelled 146 H Potassium Cancelled Chloride Carbon Dioxide Anion Gap BUN Creatinine Estim Creat Clear Calc Estimated GFR POC Glucose Random Glucose Fasting Glucose Calcium Total Bilirubin Direct Bilirubin AST ALT Alkaline Phosphatase Ammonia Troponin I High Sens Total Protein Albumin Crossmatch 09/16/23 09/16/23 09/16/23 06:36 06:36 06:36 WBC RBC Hgb Hct MCV MCH MCHC RDW Plt Count MPV Immature Gran % (Auto) Neut % (Auto) Lymph % (Auto) [place] % (Auto) Eos % (Auto) Baso % (Auto) Lymph # (Auto) [place] # (Auto) Eos # (Auto) Baso # (Auto) Abs Immat Gran (auto) Absolute Neuts (auto) Absolute Nucleated RBC Nucleated RBC % (auto) PT INR Sodium Potassium 4.0 Chloride Cancelled 116 H Carbon Dioxide Cancelled 19 L Anion Gap Cancelled BUN Creatinine Estim Creat Clear Calc Estimated GFR POC Glucose Random Glucose Fasting Glucose Calcium Total Bilirubin Direct Bilirubin AST ALT Alkaline Phosphatase Ammonia Troponin I High Sens Total Protein Albumin Crossmatch 09/16/23 09/16/23 09/16/23 06:36 06:36 06:36 WBC RBC Hgb Hct MCV MCH MCHC RDW Plt Count MPV Immature Gran % (Auto) Neut % (Auto) Lymph % (Auto) [place] % (Auto) Eos % (Auto) Baso % (Auto) Lymph # (Auto) [place] # (Auto) Eos # (Auto) Baso # (Auto) Abs Immat Gran (auto) Absolute Neuts (auto) Absolute Nucleated RBC Nucleated RBC % (auto) PT INR Sodium Potassium Chloride Carbon Dioxide Anion Gap 15 BUN Cancelled 29 H Creatinine Cancelled 0.98 Estim Creat Clear Calc Cancelled Estimated GFR POC Glucose Random Glucose Fasting Glucose Calcium Total Bilirubin Direct Bilirubin AST ALT Alkaline Phosphatase Ammonia Troponin I High Sens Total Protein Albumin Crossmatch 09/16/23 09/16/23 09/16/23 06:36 06:36 06:36 WBC RBC Hgb Hct MCV MCH MCHC RDW Plt Count MPV Immature Gran % (Auto) Neut % (Auto) Lymph % (Auto) [place] % (Auto) Eos % (Auto) Baso % (Auto) Lymph # (Auto) [place] # (Auto) Eos # (Auto) Baso # (Auto) Abs Immat Gran (auto) Absolute Neuts (auto) Absolute Nucleated RBC Nucleated RBC % (auto) PT INR Sodium Potassium Chloride Carbon Dioxide Anion Gap BUN Creatinine Estim Creat Clear Calc 54.0 Estimated GFR Cancelled > 60 POC Glucose Random Glucose 185 H Fasting Glucose Cancelled Calcium Cancelled 8.1 L D Total Bilirubin Cancelled Direct Bilirubin AST ALT Alkaline Phosphatase Ammonia Troponin I High Sens Total Protein Albumin Crossmatch 09/16/23 09/16/23 09/16/23 06:36 06:36 06:36 WBC RBC Hgb Hct MCV MCH MCHC RDW Plt Count MPV Immature Gran % (Auto) Neut % (Auto) Lymph % (Auto) [place] % (Auto) Eos % (Auto) Baso % (Auto) Lymph # (Auto) [place] # (Auto) Eos # (Auto) Baso # (Auto) Abs Immat Gran (auto) Absolute Neuts (auto) Absolute Nucleated RBC Nucleated RBC % (auto) PT INR Sodium Potassium Chloride Carbon Dioxide Anion Gap BUN Creatinine Estim Creat Clear Calc Estimated GFR POC Glucose Random Glucose Fasting Glucose Calcium Total Bilirubin 3.4 H Direct Bilirubin Cancelled 1.2 H AST Cancelled 35 ALT Cancelled Alkaline Phosphatase Ammonia Troponin I High Sens Total Protein Albumin Crossmatch 09/16/23 09/16/23 09/16/23 06:36 06:36 06:36 WBC RBC Hgb Hct MCV MCH MCHC RDW Plt Count MPV Immature Gran % (Auto) Neut % (Auto) Lymph % (Auto) [place] % (Auto) Eos % (Auto) Baso % (Auto) Lymph # (Auto) [place] # (Auto) Eos # (Auto) Baso # (Auto) Abs Immat Gran (auto) Absolute Neuts (auto) Absolute Nucleated RBC Nucleated RBC % (auto) PT INR Sodium Potassium Chloride Carbon Dioxide Anion Gap BUN Creatinine Estim Creat Clear Calc Estimated GFR POC Glucose Random Glucose Fasting Glucose Calcium Total Bilirubin Direct Bilirubin AST ALT 32 Alkaline Phosphatase Cancelled 165 H Ammonia 56 H Troponin I High Sens 3.1 Total Protein Cancelled 6.8 Albumin Cancelled Crossmatch 09/16/23 09/16/23 09/16/23 06:36 07:26 11:36 WBC RBC Hgb Hct MCV MCH MCHC RDW Plt Count MPV Immature Gran % (Auto) Neut % (Auto) Lymph % (Auto) [place] % (Auto) Eos % (Auto) Baso % (Auto) Lymph # (Auto) [place] # (Auto) Eos # (Auto) Baso # (Auto) Abs Immat Gran (auto) Absolute Neuts (auto) Absolute Nucleated RBC Nucleated RBC % (auto) PT INR Sodium Potassium Chloride Carbon Dioxide Anion Gap BUN Creatinine Estim Creat Clear Calc Estimated GFR POC Glucose 197 H 344 H Random Glucose Fasting Glucose Calcium Total Bilirubin Direct Bilirubin AST ALT Alkaline Phosphatase Ammonia Troponin I High Sens Total Protein Albumin 3.6 Crossmatch 09/16/23 16:07 WBC RBC Hgb Hct MCV MCH MCHC RDW Plt Count MPV Immature Gran % (Auto) Neut % (Auto) Lymph % (Auto) [place] % (Auto) Eos % (Auto) Baso % (Auto) Lymph # (Auto) [place] # (Auto) Eos # (Auto) Baso # (Auto) Abs Immat Gran (auto) Absolute Neuts (auto) Absolute Nucleated RBC Nucleated RBC % (auto) PT INR Sodium Potassium Chloride Carbon Dioxide Anion Gap BUN Creatinine Estim Creat Clear Calc Estimated GFR POC Glucose 265 H Random Glucose Fasting Glucose Calcium Total Bilirubin Direct Bilirubin AST ALT Alkaline Phosphatase Ammonia Troponin I High Sens Total Protein Albumin Crossmatch Procedures Date of Service Date of Service: 09/16/23 Progress Note: A&P Assessment and plan (1) Esophageal varices: Status: Acute (2) Cirrhosis of liver with ascites: Status: Acute (3) Cirrhosis of liver not due to alcohol: Status: Acute (4) Acute upper GI bleed: Status: Acute Plan Imp: Stable s/p UGI bleed in relation to esophageal varices secondary to GOLD- related cirrhosis. Stable s/p variceal banding. No sign of active bleeding and tolerating clear liquids. No sign of liver decompensation with worsening ascites, jaundice, nor encephalopathy. Rec: Continue current treatments. I placed orders for stopping his Octreotide and PPI infusions for 09/17 and initiation of an oral PPI for 09/17. I placed orders for a full liquid diet for tomorrow morning. F/U labs in AM. Continue Nadolol, Sucralfate suspension, and Furosemide. If stable, he can start a soft diet on Sunday 09/17 as well. D/W patient and in detail. They are comfortable with this plan. Please call me if questions or problems. Thanks Time Spent With Patient Time: Total time managing care of this patient today ____ minutes. Quality Stroke Does the patient have a stroke diagnosis?: No VTE Prior VTE?: No VTE Risk Level:: Medical - moderate - high VTE Device Contraindication: N/A - Device Ordered VTE Drug Contraindication: N/A - Med Ordered
[2023-09-16] MEDS: Atorvastatin Calcium 10 MG TABLET PO (21:09)
[2023-09-16] MEDS: Tamsulosin HCL 0.4 MG CAPSULE PO (21:09)
[2023-09-16 22:10] LABS: Glucose, Whole Blood 146 mg/dL (60-115)
[2023-09-17] VITALS (17 sets, daily range): BP systolic 132–179; BP diastolic 58–84; PULSE 56–64; RESP 16–23; TEMP 36.2–37.6; O2SAT 86–96
[2023-09-17] MEDS: Ampicillin Sodium/Sulbactam Na 1.5 GM in 0.9 % Sodium Chloride 100 ML IV ×4 (03:15→21:24)
[2023-09-17] MEDS: Pantoprazole Sodium 80 MG in 0.9 % Sodium Chloride 80 ML 10 MG IV (03:16)
[2023-09-17 06:20] LABS: MANUAL DIFF FLAG NO
[2023-09-17 06:30] LABS: Eosinophils Percent Auto 0.4 % (0-4); Hematocrit 29.2 % (42.0-52.0); Hemoglobin 9.7 g/dl (14.0-18.0); Imm Gran Abs Auto 0.02 X10*3/uL (0.00-0.03); Imm Gran Pct Auto 0.4 % (0.0-0.4); Lymphocytes Absolute Auto 0.7 X10*3/uL (1.2-4.9); Lymphocytes Percent Auto 15.4 % (20-40); Mean Corpuscular HGB Conc 33.2 g/dl (31.0-36.0); Mean Corpuscular Hemoglobin 32.3 pg (27.0-33.0); Mean Corpuscular Volume 97.3 fL (80.0-98.0); Mean Platelet Volume 10.7 fL (9.4-12.4); Monocytes Absolute Auto 0.4 X10*3/uL (0.1-1.2); Monocytes Percent Auto 8.5 % (2-11); Neutrophils Absolute Auto 3.4 x10*3/uL (2.0-8.3); Neutrophils Percent Auto 75.3 % (45-73); Red Cell Distribution Width 14.9 % (11.0-16.0); White Blood Count 4.5 X10*3/uL (4.8-10.8)
[2023-09-17 06:33] LABS: Platelet Count 39 X10*3/uL (160-400)
[2023-09-17 07:00] LABS: Anion Gap 12 (12-20); Blood Urea Nitrogen 29 mg/dL (9-16); Calcium 7.8 mg/dL (8.4-10.2); Carbon Dioxide 21 mmol/L (22-29); Chloride 114 mmol/L (96-108); Creatinine Clr Calc Pharmacy 48.1; Estimated Glomerular Filt Rate > 60; Glucose Fasting 129 mg/dL (60-99); Potassium 4.1 mmol/L (3.3-5.1); Sodium 143 mmol/L (135-145); Thyroid Stimulating Hormone 0.21 uIU/mL (0.32-4.0)
[2023-09-17 07:38] LABS: Glucose, Whole Blood 125 mg/dL (60-115)
[2023-09-17] MEDS: Octreotide Acetate 500 MCG in 0.9 % Sodium Chloride 500 ML 50.2 MCG IVCONT ×2 (08:09→18:24)
[2023-09-17] MEDS: Sucralfate Oral Suspension 1 GM/10 ML ORAL.SUSP PO ×4 (08:18→21:27)
[2023-09-17] MEDS: Pregabalin 200 MG CAPSULE PO ×2 (08:19→21:27)
[2023-09-17] MEDS: 0.9 % Sodium Chloride Flush 3 ML SYRINGE IVFLUSH ×3 (08:19→21:27)
[2023-09-17 08:20] LABS: Free T4 (Free Thyroxine) 0.76 ng/dL (0.71-1.85)
[2023-09-17] MEDS: Albuterol/Iprat 2.5/0.5MG 3 ML AMPUL.NEB INHALE ×3 (08:24→20:35)
--- NOTE | 2023-09-17 11:17 | MHC.CM.PN ---
EMR REVIEWED, PER GI PT WILL REMAIN ON IV OCTREOTIDE AND IV PPI UNTIL TOMORROW 09/17 AND THEN PT WILL BE PLACED ON LIQUID DIET, CM WILL CONT TO FOLLOW DC NEEDS.
[2023-09-17 11:20] LABS: Glucose, Whole Blood 177 mg/dL (60-115)
[2023-09-17] MEDS: nadoloL 20 MG TABLET 10 MG PO (13:05)
[2023-09-17 16:36] LABS: Glucose, Whole Blood 198 mg/dL (60-115)
--- NOTE | 2023-09-17 16:39 | P.PNIM_ITS ---
Subjective Subjective Date of Service: 09/17/23 Interval History: pancytopenia Review of Systems no new episodes of bleeding no sob or chest pain Physical Exam 2 Vital Signs: Vital Signs: Last Vital Signs Temp 97.6 F 09/17/23 16:00 Pulse 64 09/17/23 16:00 Resp 20 09/17/23 16:00 BP 179/81 H 09/17/23 16:00 Pulse Ox 94 09/17/23 16:00 O2 Del Method Nasal Cannula 09/17/23 16:00 O2 Flow Rate 1 09/17/23 16:00 BMI result Body Mass Index 25.1 Appearance: Alert.? Oriented X3,sob improving Eyes: uvula swellin improving. cvs: rrr, [id number] . res: cair entry fair ,diminshed right side and few faint cracles. abd: no rebound or guarding ,nt, bs present. ext pulses present , no cyanosis . neuro: axo3 , nonfocal. Objective Data Active Medications Albuterol/Ipratropium (Albuterol/Iprat 2.5/0.5mg 3 Ml Ampul.Neb) 3 ml INHALE RQ4H WHILE AWAKE [facility] Last Admin: 09/17/23 15:28 Dose: 3 ml Documented By: GEENA Atorvastatin Calcium (Atorvastatin Calcium 10 Mg Tablet) 10 mg PO BEDTIME [facility] Last Admin: 09/16/23 21:09 Dose: 10 mg Documented By: JACE Diphenhydramine HCl (Diphenhydramine Hcl 25 Mg Capsule) 25 mg PO Q6H PRN PRN Reason: throat swellin Glucose (Glucose Gel 15 Gm Gel..Gram.) 15 gm PO Q15M PRN; Protocol PRN Reason: per Hypoglycemia Standing Ord. Octreotide Acetate 500 mcg/ (Sodium Chloride) 501 mls @ 50.1 mls/hr IVCONT .Q10H [facility] Stop: 09/18/23 12:00 Last Admin: 09/17/23 08:09 Dose: 50.1 mcg/hr, 50.2 mls/hr Documented By: ROBERT Dextrose (D10) 250 mls @ 750 mls/hr IV Q15M PRN; Protocol PRN Reason: per Hypoglycemia Standing Ord. Ampicillin Sodium/Sulbactam (Sodium 1.5 gm/ Sodium Chloride) 100 mls @ 200 mls/hr IV Q6H [facility] Last Admin: 09/17/23 16:04 Dose: 200 mls/hr Documented By: ROBERT Insulin Human Lispro (Insulin Lispro 100 Unit/Ml 3 Ml Vial) 0 unit SUBCUT QIDACHS [facility]; Protocol Last Admin: 09/17/23 11:27 Dose: Not Given Documented By: ROBERT Non-Admin Reason: No Insulin Coverage Meclizine HCl (Meclizine Hcl 12.5 Mg Tablet) 12.5 mg PO BEDTIME [facility] Last Admin: 09/16/23 21:09 Dose: 12.5 mg Documented By: JACE Nadolol (Nadolol 20 Mg Tablet) 10 mg PO BID [facility]; Protocol Last Admin: 09/17/23 13:05 Dose: 10 mg Documented By: ROBERT Omeprazole (Omeprazole 40 Mg Capsule.Dr) 40 mg PO DAILY@0630 [facility] Pregabalin (Pregabalin 200 Mg Capsule) 200 mg PO BID [facility] Last Admin: 09/17/23 08:19 Dose: 200 mg Documented By: ROBERT Sodium Chloride (0.9 % Sodium Chloride Flush 3 Ml Syringe) [address] [facility] Last Admin: 09/17/23 08:19 Dose: 3 ml Documented By: ROBERT Sucralfate (Sucralfate Oral Suspension 1 Gm/10 Ml Oral.Susp) 1 gm PO QIDACHS [facility] Last Admin: 09/17/23 12:51 Dose: 1 gm Documented By: ROBERT Tamsulosin HCl (Tamsulosin Hcl 0.4 Mg Capsule) 0.4 mg PO BEDTIME [facility] Last Admin: 09/16/23 21:09 Dose: 0.4 mg Documented By: JACE Labs 09/17/23 06:09 09/17/23 06:09 Labs: Laboratory Results - last 24 hr 09/16/23 09/17/23 09/17/23 22:03 06:09 07:34 MCV 97.3 MCH 32.3 MCHC 33.2 RDW 14.9 Plt Count 39 L MPV 10.7 Immature Gran % (Auto) 0.4 Neut % (Auto) 75.3 H Lymph % (Auto) 15.4 L [place] % (Auto) 8.5 Eos % (Auto) 0.4 Baso % (Auto) 0.0 Lymph # (Auto) 0.7 L [place] # (Auto) 0.4 Eos # (Auto) 0.0 Baso # (Auto) 0.0 Abs Immat Gran (auto) 0.02 Absolute Neuts (auto) 3.4 Absolute Nucleated RBC 0.000 Nucleated RBC % (auto) 0.0 Anion Gap 12 Estim Creat Clear Calc 48.1 Estimated GFR > 60 POC Glucose 146 H 125 H Fasting Glucose 129 H Calcium 7.8 L TSH 0.21 L Free T4 0.76 09/17/23 09/17/23 11:16 16:22 MCV MCH MCHC RDW Plt Count MPV Immature Gran % (Auto) Neut % (Auto) Lymph % (Auto) [place] % (Auto) Eos % (Auto) Baso % (Auto) Lymph # (Auto) [place] # (Auto) Eos # (Auto) Baso # (Auto) Abs Immat Gran (auto) Absolute Neuts (auto) Absolute Nucleated RBC Nucleated RBC % (auto) Anion Gap Estim Creat Clear Calc Estimated GFR POC Glucose 177 H 198 H Fasting Glucose Calcium TSH Free T4 Assessment and Plan (1) Pneumonia: Status: Acute (2) Abdominal ascites: Status: Acute (3) Acute upper GI bleed: Status: Acute Assessment and Plan: 78 y/o M HTN, acid reflux disease, type 2 diabetes, elevatedcholesterol, history of skin cancer, BPH, Kerr's esophagus, arthritis of the feet, Nonalcoholic- with upper gi bleed: Possible Upper GI bleed: ? CT abdomen possible liver cirrhosis, patient also has history of varices. given 1 PRBC and platelets Monitor H&H stable in 10.7/32.1 ,platlets 51 also slightly improving egd 18: 1. Grade III-IV esophageal varices---3 chains from [place] at 36cm to 25cm. No active bleeding and no definite stigmata of recent bleeding. 2. Placed 3 bands at 35cm, 3 bands at 32cm, and 1 band at 30cm 3. Minimal proximal portal gastropathy 4. No blood in UGI tract 5. Small hiatal hernia and minimal changes of Kerr's mucosa No ulcer disease, no esophagitis. plan: continue PPI and octreotide drip ,bb,clear liquid diet, Sucralfate suspension QID,Hold off on paracentesis(just minimal fluid seen on today's U/S). 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 mild acute hypernatremia:improved with po intake/po hydartion. AHRF multifactorial possible question of pneumonia versus atelectasis/uvula swellin (question irritation ) post procedure. taper oxygen uvula swelling post procedure/sob:received decdrone , on benadryl prn. Given ceftriaxone and azithromycin in the ED. continue antibiotics-oxygen(taper to titrate sats of 90%),iv unasyn (started 09/16/23), incentive spirometry, chest physiotherapy, nebs Diabetes: Fingersticks with sliding scale coverage, avoid coverage below 200 mg/dL. Hypertension suboptimal: propanolol changed to coreg ,added amlodipine. HLP: Hold statins for now DVT prophylaxis: Mechanical devices ongoing need for hospital stay for considering upper GI bleed,electrolytic monitering ,AHRF: taper oxygen,Need IV antibiotics ,oxygen need, And close H&H monitoring as well as monitoring for further bleeding. Quality Stroke Does the patient have a stroke diagnosis?: No VTE Prior VTE?: No VTE Risk Level:: Medical - moderate - high VTE Device Contraindication: N/A - Device Ordered VTE Drug Contraindication: N/A - Med Ordered
[2023-09-17] MEDS: amLODIPine Besylate 2.5 MG TABLET PO (17:27)
[2023-09-17] MEDS: Omeprazole 40 MG CAPSULE.DR PO (17:27)
--- NOTE | 2023-09-17 17:38 | PM.GIPN ---
Subjective Subjective Date of Service: 09/17/23 Interval History: Feels OK. Had some SOB but feeling better now with some Nasal oxygen. Denies N/V, abdominal pain, heartburn. Had 1 greenish/brown/black stool earlier. Tolerating diet, although a little sore going down . Critical Care Time (minutes): 0 Physical Exam Vital Signs: Vital Signs: Last Vital Signs Temp 97.6 F 09/17/23 16:00 Pulse 64 09/17/23 16:00 Resp 20 09/17/23 16:00 BP 179/84 H 09/17/23 17:27 Pulse Ox 96 09/17/23 17:00 O2 Del Method Nasal Cannula 09/17/23 17:00 O2 Flow Rate 1 09/17/23 16:00 Oxygen Flow Rate 2 09/17/23 17:00 BMI result Body Mass Index 25.1 Const: General: cooperative, comfortable, no acute distress, well developed and alert Eyes: Sclerae: sclerae normal GI: Other: Abd-- Soft but feels firmer than yesterday re: ascites, +BS, NT Objective Data Labs 09/17/23 06:09 09/17/23 06:09 Labs: Laboratory Results - last 24 hr 09/16/23 09/17/23 09/17/23 22:03 06:09 07:34 WBC 4.5 L RBC 3.00 L Hgb 9.7 L Hct 29.2 L MCV 97.3 MCH 32.3 MCHC 33.2 RDW 14.9 Plt Count 39 L MPV 10.7 Immature Gran % (Auto) 0.4 Neut % (Auto) 75.3 H Lymph % (Auto) 15.4 L [place] % (Auto) 8.5 Eos % (Auto) 0.4 Baso % (Auto) 0.0 Lymph # (Auto) 0.7 L [place] # (Auto) 0.4 Eos # (Auto) 0.0 Baso # (Auto) 0.0 Abs Immat Gran (auto) 0.02 Absolute Neuts (auto) 3.4 Absolute Nucleated RBC 0.000 Nucleated RBC % (auto) 0.0 Sodium 143 Potassium 4.1 Chloride 114 H Carbon Dioxide 21 L Anion Gap 12 BUN 29 H Creatinine 1.10 Estim Creat Clear Calc 48.1 Estimated GFR > 60 POC Glucose 146 H 125 H Fasting Glucose 129 H Calcium 7.8 L TSH 0.21 L Free T4 0.76 09/17/23 09/17/23 11:16 16:22 WBC RBC Hgb Hct MCV MCH MCHC RDW Plt Count MPV Immature Gran % (Auto) Neut % (Auto) Lymph % (Auto) [place] % (Auto) Eos % (Auto) Baso % (Auto) Lymph # (Auto) [place] # (Auto) Eos # (Auto) Baso # (Auto) Abs Immat Gran (auto) Absolute Neuts (auto) Absolute Nucleated RBC Nucleated RBC % (auto) Sodium Potassium Chloride Carbon Dioxide Anion Gap BUN Creatinine Estim Creat Clear Calc Estimated GFR POC Glucose 177 H 198 H Fasting Glucose Calcium TSH Free T4 Procedures Date of Service Date of Service: 09/17/23 Progress Note: A&P Assessment and plan (1) Cirrhosis of liver not due to alcohol: Status: Acute (2) Cirrhosis of liver with ascites: Status: Acute (3) Esophageal varices: Status: Acute (4) Acute upper GI bleed: Status: Acute Assessment and Plan: Imp: Remains stable and without any signs nor symptoms of recurrent bleeding. Liver disease is stable, although seems to have accumulated more ascites. Mental status is good and without any signs of encephalopathy. Rec: Continue current plan with IV Octreotide through tomorrow 09/18/23, continue PPI intermediate, continue Beta-klarissa computer terminal operator, continue Sucralfate suspension for 2 more weeks, and diet as tolerated with sodium restriction. Continue Furosemide(restarted his outpatient dose given what appears to be increasing ascites). F/U labs in the AM 09/17. D/W patient and his in detail. They were comfortable with this plan. Time Spent With Patient Time: Total time managing care of this patient today ____ minutes. Quality Stroke Does the patient have a stroke diagnosis?: No VTE Prior VTE?: No VTE Risk Level:: Medical - moderate - high VTE Device Contraindication: N/A - Device Ordered VTE Drug Contraindication: N/A - Med Ordered
[2023-09-17 17:56] LABS: Folate 10.2 ng/mL (> or = 4.0); Vitamin B12 886 pg/mL (200-900)
[2023-09-17] MEDS: Furosemide 40 MG TABLET PO (18:21)
[2023-09-17 20:42] LABS: Glucose, Whole Blood 167 mg/dL (60-115)
[2023-09-17] MEDS: Meclizine HCl 12.5 MG TABLET PO (21:27)
[2023-09-17] MEDS: Tamsulosin HCL 0.4 MG CAPSULE PO (21:27)
[2023-09-17] MEDS: carvediloL 3.125 MG TABLET PO (21:27)
--- NOTE | 2023-09-17 21:33 | PC.NURSE ---
Addendum entered by Cordelia Hernandez RN 09/18/23 01:36: Orders for IV lasix 40mg IVP given. Original Note: Patient with exp wheezes and fine crackles in bases, tachypneic, mild increased WOB, and pitting edema BLE; MD Renny aware via tigertext at this time. No further orders received. Respiratory to bedside for duonebs.
[2023-09-17] MEDS: Atorvastatin Calcium 10 MG TABLET PO (21:40)
[2023-09-17 22:45] LABS: B Type Natriuretic Peptide 272 pg/mL (<100)
[2023-09-18] VITALS (15 sets, daily range): BP systolic 119–188; BP diastolic 65–84; PULSE 55–70; RESP 16–22; TEMP 36.5–36.9; O2SAT 92–97
--- NOTE | 2023-09-18 00:37 | PM.EVENT ---
Event Note Date of Service: 09/18/23 Event Note: Was informed by the nurse that patient was tachypneic. Patient with bilateral crackles. Imaging with vascular and interstitial prominence concerning for pulmonary edema. Ordered IV Lasix 40mg Time Spent With Patient Time: Total time managing care of this patient today ____ minutes.
[2023-09-18] MEDS: ondansetron HCL 4 MG/2 ML VIAL IVPUSH (00:46)
[2023-09-18] MEDS: Furosemide 40 MG/4 ML VIAL IVPUSH (00:46)
[2023-09-18] MEDS: Ampicillin Sodium/Sulbactam Na 1.5 GM in 0.9 % Sodium Chloride 100 ML IV ×4 (02:32→21:10)
[2023-09-18] MEDS: Omeprazole 40 MG CAPSULE.DR PO (03:51)
[2023-09-18] MEDS: Octreotide Acetate 500 MCG in 0.9 % Sodium Chloride 500 ML 50.2 MCG IVCONT (03:51)
[2023-09-18 07:39] LABS: MANUAL DIFF FLAG NO
[2023-09-18 07:39] LABS: Glucose, Whole Blood 153 mg/dL (60-115)
[2023-09-18 07:43] LABS: Basophils Percent Auto 0.6 % (0-2); Eosinophils Absolute Auto 0.3 X10*3/uL (0.0-0.4); Eosinophils Percent Auto 7.3 % (0-4); Hematocrit 33.8 % (42.0-52.0); Hemoglobin 11.2 g/dl (14.0-18.0); Imm Gran Abs Auto 0.02 X10*3/uL (0.00-0.03); Imm Gran Pct Auto 0.4 % (0.0-0.4); Lymphocytes Absolute Auto 0.9 X10*3/uL (1.2-4.9); Lymphocytes Percent Auto 19.7 % (20-40); Mean Corpuscular HGB Conc 33.1 g/dl (31.0-36.0); Mean Corpuscular Hemoglobin 31.6 pg (27.0-33.0); Mean Corpuscular Volume 95.5 fL (80.0-98.0); Mean Platelet Volume 11.8 fL (9.4-12.4); Monocytes Absolute Auto 0.5 X10*3/uL (0.1-1.2); Monocytes Percent Auto 9.6 % (2-11); Neutrophils Absolute Auto 2.9 x10*3/uL (2.0-8.3); Neutrophils Percent Auto 62.4 % (45-73); Red Blood Count 3.54 X10*6/uL (4.60-5.80); Red Cell Distribution Width 14.7 % (11.0-16.0); White Blood Count 4.7 X10*3/uL (4.8-10.8)
[2023-09-18 07:44] LABS: Platelet Count 45 X10*3/uL (160-400)
[2023-09-18] MEDS: Sucralfate Oral Suspension 1 GM/10 ML ORAL.SUSP PO ×4 (08:09→21:08)
[2023-09-18] MEDS: Furosemide 40 MG TABLET PO (08:09)
[2023-09-18] MEDS: carvediloL 3.125 MG TABLET PO ×2 (08:09→21:07)
[2023-09-18] MEDS: Pregabalin 200 MG CAPSULE PO ×2 (08:09→21:08)
[2023-09-18] MEDS: 0.9 % Sodium Chloride Flush 3 ML SYRINGE IVFLUSH ×3 (08:11→21:08)
[2023-09-18 08:19] LABS: Alanine Aminotransferase 30 U/L (0-40); Albumin Level 3.4 g/dL (3.5-5.0); Alkaline Phosphatase 162 U/L (39-117); Anion Gap 13 (12-20); Aspartate Amino Transferase 35 U/L (5-37); Bilirubin Direct 0.6 mg/dL (0.0-0.5); Bilirubin Total 1.6 mg/dL (0.0-1.0); Blood Urea Nitrogen 33 mg/dL (9-16); Calcium 8.1 mg/dL (8.4-10.2); Carbon Dioxide 22 mmol/L (22-29); Chloride 111 mmol/L (96-108); Estimated Glomerular Filt Rate 54; Glucose Fasting 167 mg/dL (60-99); Potassium 3.8 mmol/L (3.3-5.1); Sodium 142 mmol/L (135-145); Total Protein 6.4 g/dL (6.5-8.0)
[2023-09-18] MEDS: Albuterol/Iprat 2.5/0.5MG 3 ML AMPUL.NEB INHALE ×3 (08:24→15:41)
[2023-09-18 11:04] LABS: Glucose, Whole Blood 223 mg/dL (60-115)
[2023-09-18] MEDS: Insulin Lispro 100 UNIT/ML 3 ML VIAL SUBCUT (11:08)
--- NOTE | 2023-09-18 14:06 | HO.PM.IMPN ---
Subjective Subjective Date of Service: 09/18/23 Interval History: sob overnight, improving after urinating Physical Exam Vital Signs: Vital Signs: Last Vital Signs Temp 98.1 F 09/18/23 11:58 Pulse 57 09/18/23 12:06 Resp 18 09/18/23 12:06 BP 149/68 H 09/18/23 11:58 Pulse Ox 95 09/18/23 11:58 O2 Del Method Nasal Cannula 09/18/23 11:58 O2 Flow Rate 3 09/18/23 11:58 Oxygen Flow Rate 2 09/17/23 17:00 BMI result Body Mass Index 25.1 General: AO X 3, no acute distress Resp: CTA bilateral, no accessory muscles used CVS: S1,S2,RRR, murmur GI: soft, non tender, non distended Neuro: motor grossly intact, alert Psych: appropriate affect, appropriate insight Objective Data Active Medications Albuterol/Ipratropium (Albuterol/Iprat 2.5/0.5mg 3 Ml Ampul.Neb) 3 ml INHALE RQ4H WHILE AWAKE [facility] Last Admin: 09/18/23 11:58 Dose: 3 ml Documented By: DAYANA Atorvastatin Calcium (Atorvastatin Calcium 10 Mg Tablet) 10 mg PO BEDTIME [facility] Last Admin: 09/17/23 21:40 Dose: 10 mg Documented By: ADALBERTO Carvedilol (Carvedilol 3.125 Mg Tablet) 3.125 mg PO BID [facility]; Protocol Last Admin: 09/18/23 08:09 Dose: 3.125 mg Documented By: LUCI Diphenhydramine HCl (Diphenhydramine Hcl 25 Mg Capsule) 25 mg PO Q6H PRN PRN Reason: throat swellin Furosemide (Furosemide 40 Mg Tablet) 40 mg PO DAILY [facility]; Protocol Last Admin: 09/18/23 08:09 Dose: 40 mg Documented By: LUCI Glucose (Glucose Gel 15 Gm Gel..Gram.) 15 gm PO Q15M PRN; Protocol PRN Reason: per Hypoglycemia Standing Ord. Dextrose (D10) 250 mls @ 750 mls/hr IV Q15M PRN; Protocol PRN Reason: per Hypoglycemia Standing Ord. Ampicillin Sodium/Sulbactam (Sodium 1.5 gm/ Sodium Chloride) 100 mls @ 200 mls/hr IV Q6H [facility] Last Infusion: 09/18/23 08:59 Dose: Infused Documented By: LUCI Insulin Human Lispro (Insulin Lispro 100 Unit/Ml 3 Ml Vial) 0 unit SUBCUT QIDAS [facility]; Protocol Last Admin: 09/18/23 11:08 Dose: 2 unit Documented By: LUCI Meclizine HCl (Meclizine Hcl 12.5 Mg Tablet) 12.5 mg PO BEDTIME [facility] Last Admin: 09/17/23 21:27 Dose: 12.5 mg Documented By: ADALBERTO Omeprazole (Omeprazole 40 Mg Capsule.) 40 mg PO DAILY@0630 [facility] Last Admin: 09/18/23 03:51 Dose: 40 mg Documented By: ADALBERTO Ondansetron HCl (Ondansetron Hcl 4 Mg/2 Ml Vial) 4 mg IVPUSH Q6H PRN PRN Reason: Nausea and Vomiting Last Admin: 09/18/23 00:46 Dose: 4 mg Documented By: ADALBERTO Pregabalin (Pregabalin 200 Mg Capsule) 200 mg PO BID [facility] Last Admin: 09/18/23 08:09 Dose: 200 mg Documented By: LUCI Sodium Chloride (0.9 % Sodium Chloride Flush 3 Ml Syringe) [address] [facility] Last Admin: 09/18/23 08:11 Dose: 3 ml Documented By: LUCI Sucralfate (Sucralfate Oral Suspension 1 Gm/10 Ml Oral.Susp) 1 gm PO QIDAS [facility] Last Admin: 09/18/23 11:08 Dose: 1 gm Documented By: LUCI Tamsulosin HCl (Tamsulosin Hcl 0.4 Mg Capsule) 0.4 mg PO BEDTIME [facility] Last Admin: 09/17/23 21:27 Dose: 0.4 mg Documented By: ADALBERTO Labs 09/18/23 07:31 09/18/23 07:31 Labs: Laboratory Results - last 24 hr 09/17/23 09/17/23 09/17/23 16:22 16:57 20:32 MCV MCH MCHC RDW Plt Count MPV Immature Gran % (Auto) Neut % (Auto) Lymph % (Auto) [place] % (Auto) Eos % (Auto) Baso % (Auto) Lymph # (Auto) [place] # (Auto) Eos # (Auto) Baso # (Auto) Abs Immat Gran (auto) Absolute Neuts (auto) Absolute Nucleated RBC Nucleated RBC % (auto) Anion Gap Estim Creat Clear Calc Estimated GFR POC Glucose 198 H 167 H Fasting Glucose Calcium Total Bilirubin Direct Bilirubin AST ALT Alkaline Phosphatase B-Natriuretic Peptide Total Protein Albumin Vitamin B12 886 Folate 10.2 09/17/23 09/18/23 09/18/23 22:04 07:30 07:31 MCV 95.5 MCH 31.6 MCHC 33.1 RDW 14.7 Plt Count 45 L MPV 11.8 Immature Gran % (Auto) 0.4 Neut % (Auto) 62.4 Lymph % (Auto) 19.7 L [place] % (Auto) 9.6 Eos % (Auto) 7.3 H Baso % (Auto) 0.6 Lymph # (Auto) 0.9 L [place] # (Auto) 0.5 Eos # (Auto) 0.3 Baso # (Auto) 0.0 Abs Immat Gran (auto) 0.02 Absolute Neuts (auto) 2.9 Absolute Nucleated RBC 0.000 Nucleated RBC % (auto) 0.0 Anion Gap 13 Estim Creat Clear Calc 41.0 Estimated GFR 54 POC Glucose 153 H Fasting Glucose 167 H Calcium 8.1 L Total Bilirubin 1.6 H Direct Bilirubin 0.6 H AST 35 ALT 30 Alkaline Phosphatase 162 H B-Natriuretic Peptide 272 H Total Protein 6.4 L Albumin 3.4 L Vitamin B12 Folate 09/18/23 10:59 MCV MCH MCHC RDW Plt Count MPV Immature Gran % (Auto) Neut % (Auto) Lymph % (Auto) [place] % (Auto) Eos % (Auto) Baso % (Auto) Lymph # (Auto) [place] # (Auto) Eos # (Auto) Baso # (Auto) Abs Immat Gran (auto) Absolute Neuts (auto) Absolute Nucleated RBC Nucleated RBC % (auto) Anion Gap Estim Creat Clear Calc Estimated GFR POC Glucose 223 H Fasting Glucose Calcium Total Bilirubin Direct Bilirubin AST ALT Alkaline Phosphatase B-Natriuretic Peptide Total Protein Albumin Vitamin B12 Folate Assessment and Plan (1) Pneumonia: Status: Acute (2) Abdominal ascites: Status: Acute (3) Acute upper GI bleed: Status: Acute Assessment and Plan: 78M PMH HTN, acid reflux disease, type 2 diabetes, elevated cholesterol, history of skin cancer, BPH, Kerr's esophagus, arthritis of the feet, GOLD presented with coffee ground emesis 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 PPI, Carafate, monitor hemoglobin mild acute hypernatremia Resolved Acute hypoxic respiratory failure secondary to acute on chronic diastolic CHF and right pleural effusion as well as possible pneumonia Uvula swelling resolved Status post Decadron Unasyn Status post IV Lasix, now back on p.o. Plan for therapeutic right thoracentesis Diabetes Insulin Hypertension Coreg DVT prophylaxis: Mechanical devices due to GI bleed DNR/DNI reason for continued hospitalization: Plan for thoracentesis, weaning O2 Quality Stroke Does the patient have a stroke diagnosis?: No VTE Prior VTE?: No VTE Risk Level:: Medical - moderate - high VTE Device Contraindication: N/A - Device Ordered VTE Drug Contraindication: N/A - Med Ordered
[2023-09-18] MEDS: Lidocaine HCl 1 % MPF 5 ML VIAL SUBCUT (14:57)
--- NOTE | 2023-09-18 14:57 | PM.PROC ---
Brief Operative Note Date of procedure: 09/18/23 Pre-op diagnosis: Right hepatic hydrothorax Post-op diagnosis: same Procedure: US Right thoracentesis 600 cc yellow fluid removed and sent for analysis. Post xray shows no pneumothorax. No immediate complications. Anesthesia: local Condition: stable Disposition: floor
[2023-09-18 15:34] LABS: MN% 76.3 %; PMN% 23.7 %; WBC Pleural Fluid 0.598 X10*3/uL
[2023-09-18 15:55] LABS: RBC Pleural Fluid < 0.002 X10*6/uL
[2023-09-18 16:42] LABS: Glucose, Whole Blood 200 mg/dL (60-115)
[2023-09-18 17:32] LABS: BF Shift QC OK YES; Lymphocytes Pleural Fluid 14 %; Monocytes Pleural Fluid 8 %; Neutrophils Pleural Fluid 16 %; Other Cells Plerual Fl 62 %
--- NOTE | 2023-09-18 19:00 | P.CDIM_ITS ---
PROVIDER RESPONSE TEXT: To clarify, the appropriate diagnosis supported by the clinical indicators: Acute QUERY TEXT: PHYSICIAN'S DOCUMENTATION REQUEST Date of Query: 09/18/2023 11:58 AM EDT Patient Name: Efrain Hilton Admit Date: 09/15/2023 Dear Alban Lawson MD, A review of the medical record indicates additional documentation may be needed. Please review below and update the documentation accordingly. Clinical Indicators: Per Event Note 09/18/23: Imaging with vascular and interstitial prominence concerning for pulmonary edema. Ordered IV Lasix 40 mg Clarify which of the following accurately represents the acuity of the Pulmonary edema. Possible options might include: Acute Acute on chronic Compensated Chronic stable condition Remission Other (explain) Clinically unable to determine (explain) Thank you, Rebecca Monroy RN Use of terms such as suspected, likely, concern for, or probable (associated with a specific diagnosi s that is being evaluated, monitored, or treated as if it exists) are acceptable and can be coded in the inpatient se tting, when documented at the time of discharge. Please use your independent medical judgment in providing your response. THIS QUERY IS PART OF THE PERMANENT MEDICAL RECORD
--- NOTE | 2023-09-18 19:34 | PM.GIPN ---
Subjective Subjective Date of Service: 09/18/23 Interval History: Reports no bleeding, no N/V, brown stools without bleeding. Tolerating diet. Denies abdominal pain. Reports diuresing a lot overnight after IV Lasix. Feels better after thoracentesis. Critical Care Time (minutes): 0 Physical Exam Vital Signs: Vital Signs: Last Vital Signs Temp 97.7 F 09/18/23 16:00 Pulse 60 09/18/23 16:00 Resp 18 09/18/23 16:00 BP 134/67 09/18/23 16:00 Pulse Ox 92 09/18/23 17:00 O2 Del Method Room Air 09/18/23 17:00 O2 Flow Rate 2 09/18/23 16:00 Oxygen Flow Rate 2 09/17/23 17:00 BMI result Body Mass Index 25.1 Const: General: cooperative, comfortable, no acute distress, well developed and alert Orientation/consciousness: oriented to person, oriented to place, oriented to time and patient oriented x3 Eyes: Sclerae: sclerae normal GI: Other: Abd-soft, +BS, NT, probably some ascites Neuro: General: oriented to person, oriented to place, oriented to time and patient oriented x3 Cognition (Neuro): normal cognition Objective Data Labs 09/18/23 07:31 09/18/23 07:31 Labs: Laboratory Results - last 24 hr 09/17/23 09/17/23 09/18/23 20:32 22:04 07:30 WBC RBC Hgb Hct MCV MCH MCHC RDW Plt Count MPV Immature Gran % (Auto) Neut % (Auto) Lymph % (Auto) [place] % (Auto) Eos % (Auto) Baso % (Auto) Lymph # (Auto) [place] # (Auto) Eos # (Auto) Baso # (Auto) Abs Immat Gran (auto) Absolute Neuts (auto) Absolute Nucleated RBC Nucleated RBC % (auto) Sodium Potassium Chloride Carbon Dioxide Anion Gap BUN Creatinine Estim Creat Clear Calc Estimated GFR POC Glucose 167 H 153 H Fasting Glucose Calcium Total Bilirubin Direct Bilirubin AST ALT Alkaline Phosphatase B-Natriuretic Peptide 272 H Total Protein Albumin Pleural WBC Pleural RBC Pleural Neutrophils Pleural Lymphocytes Pleural Monocytes Pleural Other Cells 09/18/23 09/18/23 09/18/23 07:31 10:59 14:40 WBC 4.7 L RBC 3.54 L Hgb 11.2 L Hct 33.8 L MCV 95.5 MCH 31.6 MCHC 33.1 RDW 14.7 Plt Count 45 L MPV 11.8 Immature Gran % (Auto) 0.4 Neut % (Auto) 62.4 Lymph % (Auto) 19.7 L [place] % (Auto) 9.6 Eos % (Auto) 7.3 H Baso % (Auto) 0.6 Lymph # (Auto) 0.9 L [place] # (Auto) 0.5 Eos # (Auto) 0.3 Baso # (Auto) 0.0 Abs Immat Gran (auto) 0.02 Absolute Neuts (auto) 2.9 Absolute Nucleated RBC 0.000 Nucleated RBC % (auto) 0.0 Sodium 142 Potassium 3.8 Chloride 111 H Carbon Dioxide 22 Anion Gap 13 BUN 33 H Creatinine 1.29 Estim Creat Clear Calc 41.0 Estimated GFR 54 POC Glucose 223 H Fasting Glucose 167 H Calcium 8.1 L Total Bilirubin 1.6 H Direct Bilirubin 0.6 H AST 35 ALT 30 Alkaline Phosphatase 162 H B-Natriuretic Peptide Total Protein 6.4 L Albumin 3.4 L Pleural WBC 0.598 Pleural RBC < 0.002 Pleural Neutrophils 16 Pleural Lymphocytes 14 Pleural Monocytes 8 Pleural Other Cells 62 09/18/23 16:33 WBC RBC Hgb Hct MCV MCH MCHC RDW Plt Count MPV Immature Gran % (Auto) Neut % (Auto) Lymph % (Auto) [place] % (Auto) Eos % (Auto) Baso % (Auto) Lymph # (Auto) [place] # (Auto) Eos # (Auto) Baso # (Auto) Abs Immat Gran (auto) Absolute Neuts (auto) Absolute Nucleated RBC Nucleated RBC % (auto) Sodium Potassium Chloride Carbon Dioxide Anion Gap BUN Creatinine Estim Creat Clear Calc Estimated GFR POC Glucose 200 H Fasting Glucose Calcium Total Bilirubin Direct Bilirubin AST ALT Alkaline Phosphatase B-Natriuretic Peptide Total Protein Albumin Pleural WBC Pleural RBC Pleural Neutrophils Pleural Lymphocytes Pleural Monocytes Pleural Other Cells Microbiology Microbiology Results: Microbiology 09/18/23 14:40 Thoracentesis Fluid Gram Stain - Final Procedures Date of Service Date of Service: 09/18/23 Progress Note: A&P Assessment and plan (1) Cirrhosis of 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 His main issue is fluid overload due at least to his cirrhosis, but would consider an Echocardiogram to R/O any component of CHF. Rec: Continue PPI, Sucralfate suspension, Beta-klarissa, and Furosemide. Follow chemistries to be sure things are stable on the Furosemide. Follow CBC. D/W patient, his , and his son. They are comfortable with this plan. Thanks. Time Spent With Patient Time: Total time managing care of this patient today ____ minutes. Quality Stroke Does the patient have a stroke diagnosis?: No VTE Prior VTE?: No VTE Risk Level:: Medical - moderate - high VTE Device Contraindication: N/A - Device Ordered VTE Drug Contraindication: N/A - Med Ordered
[2023-09-18] MEDS: Meclizine HCl 12.5 MG TABLET PO (21:07)
[2023-09-18] MEDS: Atorvastatin Calcium 10 MG TABLET PO (21:07)
[2023-09-18] MEDS: Tamsulosin HCL 0.4 MG CAPSULE PO (21:08)
[2023-09-18 21:21] LABS: Glucose, Whole Blood 158 mg/dL (60-115)
[2023-09-19] VITALS (13 sets, daily range): BP systolic 124–151; BP diastolic 49–71; PULSE 57–83; RESP 16–20; TEMP 36.4–37.2; O2SAT 89–95
[2023-09-19] MEDS: Ampicillin Sodium/Sulbactam Na 1.5 GM in 0.9 % Sodium Chloride 100 ML IV ×4 (03:40→22:01)
[2023-09-19] MEDS: Omeprazole 40 MG CAPSULE.DR PO (05:56)
[2023-09-19 06:49] LABS: Hematocrit 34.7 % (42.0-52.0); Hemoglobin 11.4 g/dl (14.0-18.0); Mean Corpuscular HGB Conc 32.9 g/dl (31.0-36.0); Mean Corpuscular Hemoglobin 32.2 pg (27.0-33.0); Mean Platelet Volume 11.2 fL (9.4-12.4); Red Blood Count 3.54 X10*6/uL (4.60-5.80); Red Cell Distribution Width 14.4 % (11.0-16.0); White Blood Count 3.9 X10*3/uL (4.8-10.8)
[2023-09-19 06:50] LABS: Platelet Count 48 X10*3/uL (160-400)
--- NOTE | 2023-09-19 07:00 | CA_ITS ---
Transthoracic Echocardiogram Patient (Last, First, Middle): Efrain Hilton L Gender: Male Date of : 1945 Age: 78 Procedure Date: 09/19/2023 Procedure Type: Transthoracic Echocardiogram Location: [facility] [place] Height: 165.1 cm Weight: 68.04 kg BSA: 1.75 m2 Heart Rate: bpm BP: 141 / 67 mmHg Third Cook: Referring MD: Ez Bolton MD Symptoms: chf Study Quality: Adequate ECG Rhythm: Sinus Conclusions: - Normal left ventricular size and systolic function. - Normal right ventricular cavity size and systolic function. - E/E prime ratio is between 8 and 15 consistent with indeterminate filling pressures. Findings Left Ventricle Normal left ventricular size and systolic function. There is mildly increased left ventricular wall thickness. The visually estimated ejection fraction is between 60-65%. There is no evidence of regional wall motion abnormalities. Abnormal diastolic function is noted. Spectral Doppler is indicative of an impaired relaxation filling pattern. E/E prime ratio is between 8 and 15 consistent with indeterminate filling pressures. Right Ventricle Normal right ventricular cavity size and systolic function. Atria The left atrium is mildly dilated. Aortic Valve Normal aortic valve structure and function. There is no aortic valve stenosis. There is no aortic valve regurgitation. Mitral Valve Normal mitral valve structure and function. There is trace mitral valve regurgitation. There is no mitral valve stenosis. Pulmonic Valve The pulmonic valve is likely normal. Tricuspid Valve Normal tricuspid valve structure. There is trace tricuspid valve regurgitation. Tricuspid regurgitation envelope is inadequate for calculation of right ventricular systolic pressure. Indeterminate right atrial pressure. Great Vessels All visible segments of the aorta are normal in size. Venous The inferior vena cava was not well visualized. Pericardium/Pleural There is no evidence of pericardial effusion. Prior Study Comparison No prior study available for comparison. Measurements 2D Linear Measurements IVSd: 1.26 0.6-0.9/0.6-1.0 cm LVIDd: 3.98 3.9-5.3/4.2-5.9 cm LVIDd Index: 2.27 2.4-3.2/2.2-3.1 cm/m2 LVIDs: 2.66 2.0-3.6 cm LVPWd: 1.21 0.7-1.1 cm Ao Root: 3.10 2.1-3.5 cm LA Diam: 2.80 2.7-3.8/3.0-4.0 cm LAIDs Index: 1.60 1.5-2.3 cm/m2 LV Mass: 213.50 67-162/88-224 g LV Mass Index: 122.00 43-95/49-115 g/m2 LVOT Diam: 2.00 3.0+(-)1.3 cm 2D Systolic Function EF 4C: 51.40 >55% EF 2C: 63.70 >55% EF BiP: 57.40 >55% Mitral Valve MV Pk E: 0.84 MV PK A: 0.98 MV Decel Time: 282.00 E/A: 0.90 E'Lateral: 7.29 E'Medial: 4.35 E/E' Med: 19.20 E/E' Lat: 11.50 PHT: 83.00 MVA PHT: 2.65 Decel [place]: 2.97 Aortic Valve AoV Pk John: 1.53 AoV Pk Grad: 9.00 LVOT LVOT Pk John: 1.14 LVOT Mn John: 0.72 LVOT VTI: 0.27 LVOT Pk Grad: 5.00 LVOT Mn Grad: 3.00 LVOT Diam: 2.00 LVOT Area: 3.14 Diastolic Function MV Pk E: 0.84 MV Pk A: 0.98 E/A: 0.90 E'Medial: 4.35 E/E' Med: 19.20 E' Laterial: 7.29 E/E' Lat: 11.50 Right Ventricle TAPSE (mm): 25.20 TVS' John: 16.30 Tricuspid Valve TR Pk John: 2.48 TR Pk Grad: 25.00 RA Press: 3.00 Great Vessels Aorta Ao Root-2D: 3.10 2.0-3.7 cm Ao Asc: 3.20 2.1-3.4 cm Pulmonary Valve PV Pk John: 1.33 Peak PV Grad: 7.00 Updated in Other Vendor System with Status of Final Kaiser Wtakins MD electronically signed on 09/19/2023 9:54:10 PM with status of Final
[2023-09-19 07:06] LABS: Anion Gap 15 (12-20); Blood Urea Nitrogen 26 mg/dL (9-16); Calcium 8.2 mg/dL (8.4-10.2); Carbon Dioxide 23 mmol/L (22-29); Chloride 108 mmol/L (96-108); Estimated Glomerular Filt Rate > 60; Glucose Fasting 144 mg/dL (60-99); Potassium 3.9 mmol/L (3.3-5.1); Sodium 142 mmol/L (135-145)
[2023-09-19 07:40] LABS: Glucose, Whole Blood 127 mg/dL (60-115)
[2023-09-19] MEDS: Albuterol/Iprat 2.5/0.5MG 3 ML AMPUL.NEB INHALE ×4 (08:18→19:42)
[2023-09-19] MEDS: carvediloL 3.125 MG TABLET PO ×2 (09:42→22:01)
[2023-09-19] MEDS: Pregabalin 200 MG CAPSULE PO ×2 (09:42→22:05)
[2023-09-19] MEDS: Sucralfate Oral Suspension 1 GM/10 ML ORAL.SUSP PO ×4 (09:42→22:01)
[2023-09-19] MEDS: Furosemide 40 MG TABLET PO (09:42)
[2023-09-19] MEDS: 0.9 % Sodium Chloride Flush 3 ML SYRINGE IVFLUSH ×3 (09:43→22:05)
--- NOTE | 2023-09-19 10:32 | MHC.CM.PN ---
EMR REVIEWED, PT W/GI BLEED/CHF/R PLEURAL EFFUSION S/P THORACENTESIS REMAINS HYPOXIC, P.T. NOT RECOMMENDING SERVICES/STR, CM WILL CONT TO FOLLOW DC NEEDS.
--- NOTE | 2023-09-19 11:05 | P.PNIM_ITS ---
Subjective Subjective Date of Service: 09/19/23 Interval History: still some sob, some right pleuritic pain from thoracocentesis Physical Exam 2 Vital Signs: Vital Signs: Last Vital Signs Temp 97.8 F 09/19/23 07:54 Pulse 57 09/19/23 09:42 Resp 16 09/19/23 08:18 BP 136/64 09/19/23 09:42 Pulse Ox 94 09/19/23 07:54 O2 Del Method Nasal Cannula 09/19/23 07:54 O2 Flow Rate 2 09/19/23 07:54 Oxygen Flow Rate 2 09/17/23 17:00 BMI result Body Mass Index 25.1 General: AO X 3, no acute distress Resp: CTA bilateral, no accessory muscles used CVS: S1,S2,RRR, murmur GI: soft, non tender, non distended Neuro: motor grossly intact, alert Psych: appropriate affect, appropriate insight Objective Data Active Medications Albuterol/Ipratropium (Albuterol/Iprat 2.5/0.5mg 3 Ml Ampul.Neb) 3 ml INHALE RQ4H WHILE AWAKE ARACELIS Last Admin: 09/19/23 08:18 Dose: 3 ml Documented By: DAVIS Atorvastatin Calcium (Atorvastatin Calcium 10 Mg Tablet) 10 mg PO BEDTIME ARACELIS Last Admin: 09/18/23 21:07 Dose: 10 mg Documented By: KIRBY Carvedilol (Carvedilol 3.125 Mg Tablet) 3.125 mg PO BID [facility]; Protocol Last Admin: 09/19/23 09:42 Dose: 3.125 mg Documented By: ISAEL Diphenhydramine HCl (Diphenhydramine Hcl 25 Mg Capsule) 25 mg PO Q6H PRN PRN Reason: throat swellin Furosemide (Furosemide 40 Mg Tablet) 40 mg PO DAILY [facility]; Protocol Last Admin: 09/19/23 09:42 Dose: 40 mg Documented By: ISAEL Glucose (Glucose Gel 15 Gm Gel..Gram.) 15 gm PO Q15M PRN; Protocol PRN Reason: per Hypoglycemia Standing Ord. Dextrose (D10) 250 mls @ 750 mls/hr IV Q15M PRN; Protocol PRN Reason: per Hypoglycemia Standing Ord. Ampicillin Sodium/Sulbactam (Sodium 1.5 gm/ Sodium Chloride) 100 mls @ 200 mls/hr IV Q6H [facility] Last Infusion: 09/19/23 10:16 Dose: Infused Documented By: ISAEL Insulin Human Lispro (Insulin Lispro 100 Unit/Ml 3 Ml Vial) [facility] Protocol Last Admin: 09/19/23 07:47 Dose: Not Given Documented By: ISAEL Non-Admin Reason: No Insulin Coverage Meclizine HCl (Meclizine Hcl 12.5 Mg Tablet) 12.5 mg PO BEDTIME [facility] Last Admin: 09/18/23 21:07 Dose: 12.5 mg Documented By: KIRBY Omeprazole (Omeprazole 40 Mg Capsule.) 40 mg PO DAILY@0630 [facility] Last Admin: 09/19/23 05:56 Dose: 40 mg Documented By: KIRBY Ondansetron HCl (Ondansetron Hcl 4 Mg/2 Ml Vial) 4 mg IVPUSH Q6H PRN PRN Reason: Nausea and Vomiting Last Admin: 09/18/23 00:46 Dose: 4 mg Documented By: ADALBERTO Pregabalin (Pregabalin 200 Mg Capsule) 200 mg PO BID [facility] Last Admin: 09/19/23 09:42 Dose: 200 mg Documented By: ISAEL Sodium Chloride (0.9 % Sodium Chloride Flush 3 Ml Syringe) 3 ml IVFLUSH QSHIFT [facility] Last Admin: 09/19/23 09:43 Dose: 3 ml Documented By: ISAEL Sucralfate (Sucralfate Oral Suspension 1 Gm/10 Ml Oral.Susp) 1 gm PO QIDACHS [facility] Last Admin: 09/19/23 09:42 Dose: 1 gm Documented By: ISAEL Tamsulosin HCl (Tamsulosin Hcl 0.4 Mg Capsule) 0.4 mg PO BEDTIME [facility] Last Admin: 09/18/23 21:08 Dose: 0.4 mg Documented By: KIRBY Labs 09/19/23 06:43 09/19/23 06:43 Labs: Laboratory Results - last 24 hr 09/18/23 09/18/23 09/18/23 10:59 14:40 16:33 MCV MCH MCHC RDW Plt Count MPV Absolute Nucleated RBC Nucleated RBC % (auto) Anion Gap Estim Creat Clear Calc Estimated GFR POC Glucose 223 H 200 H Fasting Glucose Calcium Pleural WBC 0.598 Pleural RBC < 0.002 Pleural Neutrophils 16 Pleural Lymphocytes 14 Pleural Monocytes 8 Pleural Other Cells 62 09/18/23 09/19/23 09/19/23 21:17 06:43 07:25 MCV 98.0 MCH 32.2 MCHC 32.9 RDW 14.4 Plt Count 48 L MPV 11.2 Absolute Nucleated RBC 0.000 Nucleated RBC % (auto) 0.0 Anion Gap 15 Estim Creat Clear Calc 54.0 Estimated GFR > 60 POC Glucose 158 H 127 H Fasting Glucose 144 H Calcium 8.2 L Pleural WBC Pleural RBC Pleural Neutrophils Pleural Lymphocytes Pleural Monocytes Pleural Other Cells Microbiology Microbiology Results: Microbiology 09/18/23 14:40 Gram Stain - Final Thoracentesis Fluid Anaerobic Culture - Preliminary No growth to date. Body Fluid Culture - Preliminary No growth to date. 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 PPI, Carafate, monitor hemoglobin - stable mild acute hypernatremia Resolved Acute hypoxic respiratory failure secondary to acute on chronic diastolic CHF and right pleural effusion as well as possible pneumonia Uvula swelling resolved Status post Decadron Unasyn Status post IV Lasix, now back on p.o. s/p therapeutic right thoracentesis still hypoxic - plan for therapeutic paracentesis echo Diabetes Insulin Hypertension Coreg DVT prophylaxis: Mechanical devices due to GI bleed DNR/DNI reason for continued hospitalization: Plan for paracentesis, weaning O2 Quality Stroke Does the patient have a stroke diagnosis?: No VTE Prior VTE?: No VTE Risk Level:: Medical - moderate - high VTE Device Contraindication: N/A - Device Ordered VTE Drug Contraindication: N/A - Med Ordered
[2023-09-19 11:57] LABS: Glucose, Whole Blood 259 mg/dL (60-115)
[2023-09-19] MEDS: Insulin Lispro 100 UNIT/ML 3 ML VIAL SUBCUT ×2 (12:10→17:11)
[2023-09-19 15:21] LABS: Total Protein Pleural Fluid 1.8
[2023-09-19 15:23] LABS: LDH Pleural Fluid 119
[2023-09-19 18:13] LABS: Glucose, Whole Blood 264 mg/dL (60-115)
[2023-09-19 21:14] LABS: Glucose, Whole Blood 126 mg/dL (60-115)
[2023-09-19] MEDS: Meclizine HCl 12.5 MG TABLET PO (22:05)
[2023-09-19] MEDS: Tamsulosin HCL 0.4 MG CAPSULE PO (22:05)
[2023-09-19] MEDS: Atorvastatin Calcium 10 MG TABLET PO (22:05)
[2023-09-20] VITALS (13 sets, daily range): BP systolic 115–143; BP diastolic 57–67; PULSE 62–98; RESP 16–20; TEMP 36–37.2; O2SAT 91–95
[2023-09-20] MEDS: Ampicillin Sodium/Sulbactam Na 1.5 GM in 0.9 % Sodium Chloride 100 ML IV ×2 (04:15→08:51)
[2023-09-20] MEDS: Omeprazole 40 MG CAPSULE.DR PO (06:19)
[2023-09-20 06:49] LABS: Hematocrit 31.1 % (42.0-52.0); Hemoglobin 10.5 g/dl (14.0-18.0); Mean Corpuscular HGB Conc 33.8 g/dl (31.0-36.0); Mean Corpuscular Volume 94.8 fL (80.0-98.0); Mean Platelet Volume 10.8 fL (9.4-12.4); Red Blood Count 3.28 X10*6/uL (4.60-5.80); Red Cell Distribution Width 14.1 % (11.0-16.0); White Blood Count 4.1 X10*3/uL (4.8-10.8)
[2023-09-20 06:51] LABS: Anion Gap 12 (12-20); Blood Urea Nitrogen 20 mg/dL (9-16); Carbon Dioxide 23 mmol/L (22-29); Chloride 108 mmol/L (96-108); Creatinine Clr Calc Pharmacy 64.5; Estimated Glomerular Filt Rate > 60; Glucose Fasting 150 mg/dL (60-99); Potassium 3.7 mmol/L (3.3-5.1); Sodium 139 mmol/L (135-145)
[2023-09-20 06:52] LABS: Platelet Count 44 X10*3/uL (160-400)
[2023-09-20 07:14] LABS: Glucose, Whole Blood 138 mg/dL (60-115)
[2023-09-20] MEDS: Albuterol/Iprat 2.5/0.5MG 3 ML AMPUL.NEB INHALE ×3 (08:37→19:37)
[2023-09-20] MEDS: Sucralfate Oral Suspension 1 GM/10 ML ORAL.SUSP PO ×4 (08:49→20:30)
[2023-09-20] MEDS: Pregabalin 200 MG CAPSULE PO ×2 (08:50→20:30)
[2023-09-20] MEDS: Furosemide 40 MG TABLET PO (08:50)
[2023-09-20] MEDS: carvediloL 3.125 MG TABLET PO ×2 (08:50→20:31)
[2023-09-20] MEDS: 0.9 % Sodium Chloride Flush 3 ML SYRINGE IVFLUSH ×3 (08:51→20:32)
[2023-09-20 10:58] LABS: Glucose, Whole Blood 228 mg/dL (60-115)
--- NOTE | 2023-09-20 11:07 | P.PNIM_ITS ---
Subjective Subjective Date of Service: 09/20/23 Interval History: sob improved, still hypoxic on exertion Physical Exam 2 Vital Signs: Vital Signs: Last Vital Signs Temp 98.0 F 09/20/23 07:55 Pulse 98 09/20/23 08:50 Resp 20 09/20/23 08:39 BP 135/60 09/20/23 08:50 Pulse Ox 95 09/20/23 07:55 O2 Del Method Nasal Cannula 09/20/23 07:55 O2 Flow Rate 2 09/20/23 07:55 Oxygen Flow Rate 2 09/17/23 17:00 BMI result Body Mass Index 25.1 General: AO X 3, no acute distress Resp: CTA bilateral, no accessory muscles used CVS: S1,S2,RRR, murmur GI: soft, non tender, non distended Neuro: motor grossly intact, alert Psych: appropriate affect, appropriate insight Objective Data Active Medications Albuterol/Ipratropium (Albuterol/Iprat 2.5/0.5mg 3 Ml Ampul.Neb) 3 ml INHALE RQ4H WHILE AWAKE [facility] Last Admin: 09/20/23 08:37 Dose: 3 ml Documented By: JIMMY Atorvastatin Calcium (Atorvastatin Calcium 10 Mg Tablet) 10 mg PO BEDTIME [facility] Last Admin: 09/19/23 22:05 Dose: 10 mg Documented By: IVÁN Carvedilol (Carvedilol 3.125 Mg Tablet) 3.125 mg PO BID [facility]; Protocol Last Admin: 09/20/23 08:50 Dose: 3.125 mg Documented By: ISAEL Diphenhydramine HCl (Diphenhydramine Hcl 25 Mg Capsule) 25 mg PO Q6H PRN PRN Reason: throat swellin Furosemide (Furosemide 40 Mg Tablet) 40 mg PO DAILY [facility]; Protocol Last Admin: 09/20/23 08:50 Dose: 40 mg Documented By: ISAEL Glucose (Glucose Gel 15 Gm Gel..Gram.) 15 gm PO Q15M PRN; Protocol PRN Reason: per Hypoglycemia Standing Ord. Dextrose (D10) 250 mls @ 750 mls/hr IV Q15M PRN; Protocol PRN Reason: per Hypoglycemia Standing Ord. Ampicillin Sodium/Sulbactam (Sodium 1.5 gm/ Sodium Chloride) 100 mls @ 200 mls/hr IV Q6H [facility] Last Infusion: 09/20/23 09:22 Dose: Infused Documented By: ISAEL Insulin Human Lispro (Insulin Lispro 100 Unit/Ml 3 Ml Vial) 0 unit SUBCUT QIDAS [facility]; Protocol Last Admin: 09/20/23 08:41 Dose: Not Given Documented By: ISAEL Non-Admin Reason: No Insulin Coverage Meclizine HCl (Meclizine Hcl 12.5 Mg Tablet) 12.5 mg PO BEDTIME [facility] Last Admin: 09/19/23 22:05 Dose: 12.5 mg Documented By: IVÁN Omeprazole (Omeprazole 40 Mg Capsule.) 40 mg PO DAILY@0630 [facility] Last Admin: 09/20/23 06:19 Dose: 40 mg Documented By: IVÁN Ondansetron HCl (Ondansetron Hcl 4 Mg/2 Ml Vial) 4 mg IVPUSH Q6H PRN PRN Reason: Nausea and Vomiting Last Admin: 09/18/23 00:46 Dose: 4 mg Documented By: ADALBERTO Pregabalin (Pregabalin 200 Mg Capsule) 200 mg PO BID [facility] Last Admin: 09/20/23 08:50 Dose: 200 mg Documented By: ISAEL Sodium Chloride (0.9 % Sodium Chloride Flush 3 Ml Syringe) [facility] Last Admin: 09/20/23 08:51 Dose: 3 ml Documented By: ISAEL Sucralfate (Sucralfate Oral Suspension 1 Gm/10 Ml Oral.Susp) 1 gm PO QIDAS [facility] Last Admin: 09/20/23 08:49 Dose: 1 gm Documented By: ISAEL Tamsulosin HCl (Tamsulosin Hcl 0.4 Mg Capsule) 0.4 mg PO BEDTIME [facility] Last Admin: 09/19/23 22:05 Dose: 0.4 mg Documented By: IVÁN Labs 09/20/23 06:21 09/20/23 06:21 Labs: Laboratory Results - last 24 hr 09/18/23 09/19/23 09/19/23 14:40 11:35 15:20 MCV MCH MCHC RDW Plt Count MPV Absolute Nucleated RBC Nucleated RBC % (auto) Anion Gap Estim Creat Clear Calc Estimated GFR POC Glucose 259 H 264 H Fasting Glucose Calcium Pleural Total Protein 1.8 Pleural LDH 119 09/19/23 09/20/23 09/20/23 21:03 06:21 07:10 MCV 94.8 MCH 32.0 MCHC 33.8 RDW 14.1 Plt Count 44 L MPV 10.8 Absolute Nucleated RBC 0.000 Nucleated RBC % (auto) 0.0 Anion Gap 12 Estim Creat Clear Calc 64.5 Estimated GFR > 60 POC Glucose 126 H 138 H Fasting Glucose 150 H Calcium 8.0 L Pleural Total Protein Pleural LDH 09/20/23 10:54 MCV MCH MCHC RDW Plt Count MPV Absolute Nucleated RBC Nucleated RBC % (auto) Anion Gap Estim Creat Clear Calc Estimated GFR POC Glucose 228 H Fasting Glucose Calcium Pleural Total Protein Pleural LDH Microbiology Microbiology Results: Microbiology 09/18/23 14:40 Gram Stain - Final Thoracentesis Fluid Anaerobic Culture - Preliminary No growth to date. 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 PPI, Carafate, monitor hemoglobin - stable mild acute hypernatremia Resolved Acute hypoxic respiratory failure secondary to acute on chronic diastolic CHF and right pleural effusion as well as possible pneumonia Uvula swelling resolved Status post Decadron completed Unasyn Status post IV Lasix, now back on p.o., will give extra iv dose today s/p therapeutic right thoracentesis not enough fluid for paracentesis Diabetes Insulin Hypertension Coreg DVT prophylaxis: Mechanical devices due to GI bleed DNR/DNI reason for continued hospitalization: weaning O2 Quality Stroke Does the patient have a stroke diagnosis?: No VTE Prior VTE?: No VTE Risk Level:: Medical - moderate - high VTE Device Contraindication: N/A - Device Ordered VTE Drug Contraindication: N/A - Med Ordered
[2023-09-20] MEDS: Furosemide 40 MG/4 ML VIAL IVPUSH (11:08)
[2023-09-20] MEDS: Insulin Lispro 100 UNIT/ML 3 ML VIAL SUBCUT ×2 (11:08→16:13)
[2023-09-20] MEDS: Oxymetazoline HCl 0.05 % Nasal 15 ML SPRAY 2 SPRAY NOSTRIL-B (11:57)
[2023-09-20 16:16] LABS: Glucose, Whole Blood 255 mg/dL (60-115)
--- NOTE | 2023-09-20 16:45 | P.PNGI_ITS ---
Subjective Subjective Date of Service: 09/20/23 Interval History: Reports feeling OK. No sign of bleeding. Tolerating diet. Denies abdominal pain or SOB. Critical Care Time (minutes): 0 Physical Exam 2 Vital Signs: Vital Signs: Last Vital Signs Temp 98.6 F 09/20/23 15:28 Pulse 70 09/20/23 15:28 Resp 16 09/20/23 15:28 BP 133/67 09/20/23 15:28 Pulse Ox 95 09/20/23 16:42 O2 Del Method Room Air 09/20/23 16:42 O2 Flow Rate 2 09/20/23 07:55 Oxygen Flow Rate 2 09/17/23 17:00 BMI result Body Mass Index 25.1 Const: General: cooperative, healthy appearing, comfortable, no acute distress, well developed and alert Eyes: Sclerae: sclerae normal GI: Other: Abd-Soft, NT, no mass, somewhat distended Extrem: General: Yes edema (Pretibial edema) Objective Data Labs 09/20/23 06:21 09/20/23 06:21 Labs: Laboratory Results - last 24 hr 09/19/23 09/19/23 09/20/23 15:20 21:03 06:21 WBC 4.1 L RBC 3.28 L Hgb 10.5 L Hct 31.1 L MCV 94.8 MCH 32.0 MCHC 33.8 RDW 14.1 Plt Count 44 L MPV 10.8 Absolute Nucleated RBC 0.000 Nucleated RBC % (auto) 0.0 Sodium 139 Potassium 3.7 Chloride 108 Carbon Dioxide 23 Anion Gap 12 BUN 20 H Creatinine 0.82 Estim Creat Clear Calc 64.5 Estimated GFR > 60 POC Glucose 264 H 126 H Fasting Glucose 150 H Calcium 8.0 L 09/20/23 09/20/23 09/20/23 07:10 10:54 16:07 WBC RBC Hgb Hct MCV MCH MCHC RDW Plt Count MPV Absolute Nucleated RBC Nucleated RBC % (auto) Sodium Potassium Chloride Carbon Dioxide Anion Gap BUN Creatinine Estim Creat Clear Calc Estimated GFR POC Glucose 138 H 228 H 255 H Fasting Glucose Calcium Microbiology Microbiology Results: Microbiology 09/18/23 14:40 Thoracentesis Fluid Gram Stain - Final 09/18/23 14:40 Thoracentesis Fluid Anaerobic Culture - Preliminary No growth to date. 09/18/23 14:40 Thoracentesis Fluid Body Fluid Culture - Final No growth after 2 days Procedures Date of Service Date of Service: 09/20/23 Progress Note: A&P Assessment and plan (1) Cirrhosis of liver not due to alcohol: Status: Acute (2) Cirrhosis of liver with ascites: Status: Acute (3) Esophageal varices: Status: Acute (4) Acute upper GI bleed: Status: Acute Plan Imp: Patient remains stable and without any signs of recurrent GI bleeding. No sign of decompensating liver disease with jaundice nor encephalopathy. His main issue is that of relatively low oxygen sats and 3rd spacing of fluid in his legs, as well as in probably the abdominal wall as the U/S was negative for any significant intraabdominal ascites. He did receive an extra dose of IV lasix today. His renal function is tolerating the diuretics. Rec: Continue current line of therapy in regard to his Beta-klarissa, PPI, and Sucralfate suspension. Continue Furosemide, but may want to increase his daily dose and/or add a dose of Aldactone. However, in the past he did have some problems with hyperkalemia while on Aldactone by itself. Perhaps having the Furosemide on board might protect against hyperkalemia. Consider repeat CXR and Pulmonary consult if oxygen sats continue to pose problems. D/W patient and his in detail Thanks Time Spent With Patient Time: Total time managing care of this patient today ____ minutes. Quality Stroke Does the patient have a stroke diagnosis?: No VTE Prior VTE?: No VTE Risk Level:: Medical - moderate - high VTE Device Contraindication: N/A - Device Ordered VTE Drug Contraindication: N/A - Med Ordered
[2023-09-20 20:20] LABS: Glucose, Whole Blood 161 mg/dL (60-115)
[2023-09-20] MEDS: Tamsulosin HCL 0.4 MG CAPSULE PO (20:30)
[2023-09-20] MEDS: Atorvastatin Calcium 10 MG TABLET PO (20:30)
[2023-09-20] MEDS: Meclizine HCl 12.5 MG TABLET PO (20:31)
[2023-09-21] VITALS (12 sets, daily range): BP systolic 108–143; BP diastolic 58–65; PULSE 60–93; RESP 16–20; TEMP 36.6–37.2; O2SAT 88–96
[2023-09-21] MEDS: Omeprazole 40 MG CAPSULE.DR PO (06:08)
[2023-09-21 07:04] LABS: Glucose, Whole Blood 159 mg/dL (60-115)
[2023-09-21 07:14] LABS: Hematocrit 31.7 % (42.0-52.0); Hemoglobin 10.9 g/dl (14.0-18.0); Mean Corpuscular HGB Conc 34.4 g/dl (31.0-36.0); Mean Platelet Volume 10.5 fL (9.4-12.4); Red Blood Count 3.41 X10*6/uL (4.60-5.80); Red Cell Distribution Width 14.3 % (11.0-16.0); White Blood Count 3.7 X10*3/uL (4.8-10.8)
[2023-09-21 07:17] LABS: Platelet Count 44 X10*3/uL (160-400)
[2023-09-21 07:34] LABS: Anion Gap 10 (12-20); Blood Urea Nitrogen 20 mg/dL (9-16); Calcium 8.4 mg/dL (8.4-10.2); Chloride 104 mmol/L (96-108); Creatinine Clr Calc Pharmacy 60.8; Estimated Glomerular Filt Rate > 60; Glucose Fasting 158 mg/dL (60-99); Magnesium 1.8 mg/dL (1.6-2.6); Potassium 3.5 mmol/L (3.3-5.1); Sodium 139 mmol/L (135-145)
[2023-09-21] MEDS: Albuterol/Iprat 2.5/0.5MG 3 ML AMPUL.NEB INHALE ×4 (07:43→19:06)
[2023-09-21 07:52] LABS: Carbon Dioxide 29 mmol/L (22-29)
[2023-09-21] MEDS: Pregabalin 200 MG CAPSULE PO ×2 (09:34→21:11)
[2023-09-21] MEDS: carvediloL 3.125 MG TABLET PO ×2 (09:34→21:11)
[2023-09-21] MEDS: Furosemide 40 MG TABLET PO (09:34)
[2023-09-21] MEDS: Sucralfate Oral Suspension 1 GM/10 ML ORAL.SUSP PO ×4 (09:34→21:11)
[2023-09-21] MEDS: 0.9 % Sodium Chloride Flush 3 ML SYRINGE IVFLUSH ×3 (09:35→21:13)
--- NOTE | 2023-09-21 10:24 | P.PNIM_ITS ---
Subjective Subjective Date of Service: 09/21/23 Interval History: sob improved, still hypoxic on exertion Physical Exam 2 Vital Signs: Vital Signs: Last Vital Signs Temp 97.9 F 09/21/23 07:04 Pulse 63 09/21/23 09:34 Resp 18 09/21/23 07:45 BP 122/59 L 09/21/23 09:34 Pulse Ox 92 09/21/23 07:04 O2 Del Method Room Air 09/21/23 07:04 O2 Flow Rate 2 09/21/23 00:00 Oxygen Flow Rate 2 09/17/23 17:00 BMI result Body Mass Index 25.1 Const: General: cooperative, healthy appearing, comfortable, no acute distress, well developed and alert Eyes: Sclerae: sclerae normal GI: Other: Abd-Soft, NT, no mass, somewhat distended Extrem: General: Yes edema (Pretibial edema) Objective Data Active Medications Albuterol/Ipratropium (Albuterol/Iprat 2.5/0.5mg 3 Ml Ampul.Neb) 3 ml INHALE RQ4H WHILE AWAKE [facility] Last Admin: 09/21/23 07:43 Dose: 3 ml Documented By: DAYANA Atorvastatin Calcium (Atorvastatin Calcium 10 Mg Tablet) 10 mg PO BEDTIME [facility] Last Admin: 09/20/23 20:30 Dose: 10 mg Documented By: CARLA Carvedilol (Carvedilol 3.125 Mg Tablet) 3.125 mg PO BID [facility]; Protocol Last Admin: 09/21/23 09:34 Dose: 3.125 mg Documented By: ISAEL Diphenhydramine HCl (Diphenhydramine Hcl 25 Mg Capsule) 25 mg PO Q6H PRN PRN Reason: throat swellin Furosemide (Furosemide 40 Mg Tablet) 40 mg PO DAILY [facility]; Protocol Last Admin: 09/21/23 09:34 Dose: 40 mg Documented By: ISAEL Glucose (Glucose Gel 15 Gm Gel..Gram.) 15 gm PO Q15M PRN; Protocol PRN Reason: per Hypoglycemia Standing Ord. Dextrose (D10) 250 mls @ 750 mls/hr IV Q15M PRN; Protocol PRN Reason: per Hypoglycemia Standing Ord. Insulin Human Lispro (Insulin Lispro 100 Unit/Ml 3 Ml Vial) 0 unit SUBCUT QIDACHS [facility]; Protocol Last Admin: 09/21/23 09:11 Dose: Not Given Documented By: ISAEL Non-Admin Reason: No Insulin Coverage Meclizine HCl (Meclizine Hcl 12.5 Mg Tablet) 12.5 mg PO BEDTIME [facility] Last Admin: 09/20/23 20:31 Dose: 12.5 mg Documented By: CARLA Omeprazole (Omeprazole 40 Mg Capsule.Dr) 40 mg PO DAILY@0630 [facility] Last Admin: 09/21/23 06:08 Dose: 40 mg Documented By: CARLA Ondansetron HCl (Ondansetron Hcl 4 Mg/2 Ml Vial) 4 mg IVPUSH Q6H PRN PRN Reason: Nausea and Vomiting Last Admin: 09/18/23 00:46 Dose: 4 mg Documented By: ADALBERTO Oxymetazoline HCl (Oxymetazoline Hcl 0.05 % Nasal 15 Ml [place]) 2 spray NOSTRIL- B ONCE ONE Stop: 09/21/23 21:39 Pregabalin (Pregabalin 200 Mg Capsule) 200 mg PO BID [facility] Last Admin: 09/21/23 09:34 Dose: 200 mg Documented By: ISAEL Sodium Chloride (0.9 % Sodium Chloride Flush 3 Ml Syringe) 3 ml IVFLUSH QSHIFT [facility] Last Admin: 09/21/23 09:35 Dose: 3 ml Documented By: ISAEL Sucralfate (Sucralfate Oral Suspension 1 Gm/10 Ml Oral.Susp) 1 gm PO QIDACHS [facility] Last Admin: 09/21/23 09:34 Dose: 1 gm Documented By: ISAEL Tamsulosin HCl (Tamsulosin Hcl 0.4 Mg Capsule) 0.4 mg PO BEDTIME [facility] Last Admin: 09/20/23 20:30 Dose: 0.4 mg Documented By: CARLA Labs 09/21/23 06:30 09/21/23 06:30 Labs: Laboratory Results - last 24 hr 09/20/23 09/20/23 09/20/23 10:54 16:07 19:52 MCV MCH MCHC RDW Plt Count MPV Absolute Nucleated RBC Nucleated RBC % (auto) Anion Gap Estim Creat Clear Calc Estimated GFR POC Glucose 228 H 255 H 161 H Fasting Glucose Calcium Magnesium 09/21/23 09/21/23 06:30 07:01 MCV 93.0 MCH 32.0 MCHC 34.4 RDW 14.3 Plt Count 44 L MPV 10.5 Absolute Nucleated RBC 0.000 Nucleated RBC % (auto) 0.0 Anion Gap 10 L Estim Creat Clear Calc 60.8 Estimated GFR > 60 POC Glucose 159 H Fasting Glucose 158 H Calcium 8.4 Magnesium 1.8 Microbiology Microbiology Results: Microbiology 09/18/23 14:40 Gram Stain - Final Thoracentesis Fluid Anaerobic Culture - Preliminary No growth to date. 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 PPI, Carafate, monitor hemoglobin - stable mild acute hypernatremia Resolved Acute hypoxic respiratory failure secondary to acute on chronic diastolic CHF and right pleural effusion as well as possible pneumonia Uvula swelling resolved Status post Decadron completed Unasyn Status post IV Lasix, now back on p.o. s/p therapeutic right thoracentesis not enough fluid for paracentesis follow up repeat CT chest to eval need for further thoracocentesis Diabetes Insulin Hypertension Coreg DVT prophylaxis: Mechanical devices due to GI bleed DNR/DNI reason for continued hospitalization: weaning O2 Quality Stroke Does the patient have a stroke diagnosis?: No VTE Prior VTE?: No VTE Risk Level:: Medical - moderate - high VTE Device Contraindication: N/A - Device Ordered VTE Drug Contraindication: N/A - Med Ordered
[2023-09-21 10:59] LABS: Glucose, Whole Blood 237 mg/dL (60-115)
[2023-09-21] MEDS: Insulin Lispro 100 UNIT/ML 3 ML VIAL SUBCUT ×3 (11:39→21:15)
--- NOTE | 2023-09-21 12:06 | MHC.CM.PN ---
EMR REVIEWED, PER HOSPITALIST PT IMPROVING HOWEVER STILL W/HYPOXIA, ANTIC PT WILL BE MEDICALLY CLEARED FOR D/C HOME TOMORROW 09/21, CM WILL CONT TO FOLLOW DC NEEDS.
--- NOTE | 2023-09-21 12:55 | PM.PROC ---
Brief Operative Note Date of procedure: 09/21/23 Pre-op diagnosis: Right hepatic hydrothorax Post-op diagnosis: same Procedure: US right thoracentesis 1400 cc danie fluid removed. Post CXR shows no pneumothorax. No immediate complications Condition: stable Disposition: floor
[2023-09-21] MEDS: Lidocaine HCl 1 % MPF 5 ML VIAL SUBCUT (13:07)
[2023-09-21 16:06] LABS: Glucose, Whole Blood 270 mg/dL (60-115)
[2023-09-21 20:54] LABS: Glucose, Whole Blood 266 mg/dL (60-115)
[2023-09-21] MEDS: Meclizine HCl 12.5 MG TABLET PO (21:11)
[2023-09-21] MEDS: Atorvastatin Calcium 10 MG TABLET PO (21:11)
[2023-09-21] MEDS: Tamsulosin HCL 0.4 MG CAPSULE PO (21:11)
[2023-09-21] MEDS: Oxymetazoline HCl 0.05 % Nasal 15 ML SPRAY 2 SPRAY NOSTRIL-B (21:16)
[2023-09-22] VITALS (15 sets, daily range): BP systolic 109–158; BP diastolic 55–68; PULSE 68–98; RESP 18–90; TEMP 36.5–37.5; O2SAT 92–94
[2023-09-22] MEDS: Omeprazole 40 MG CAPSULE.DR PO (05:37)
[2023-09-22 07:48] LABS: Glucose, Whole Blood 158 mg/dL (60-115)
[2023-09-22] MEDS: carvediloL 3.125 MG TABLET PO ×2 (08:30→22:34)
[2023-09-22] MEDS: Pregabalin 200 MG CAPSULE PO ×2 (08:30→22:36)
[2023-09-22] MEDS: Furosemide 40 MG TABLET PO (08:30)
[2023-09-22] MEDS: 0.9 % Sodium Chloride Flush 3 ML SYRINGE IVFLUSH ×2 (08:31→17:14)
[2023-09-22] MEDS: Sucralfate Oral Suspension 1 GM/10 ML ORAL.SUSP PO ×4 (08:31→22:34)
[2023-09-22] MEDS: Albuterol/Iprat 2.5/0.5MG 3 ML AMPUL.NEB INHALE ×4 (08:52→19:36)
[2023-09-22] MEDS: Furosemide 40 MG/4 ML VIAL IVPUSH ×2 (10:08→17:13)
--- NOTE | 2023-09-22 10:36 | P.PNIM_ITS ---
Subjective Subjective Date of Service: 09/22/23 Interval History: sob improved, still hypoxic on exertion, urinary retention 700cc straight cath overnight Physical Exam 2 Vital Signs: Vital Signs: Last Vital Signs Temp 97.7 F 09/22/23 07:36 Pulse 75 09/22/23 08:52 Resp 18 09/22/23 08:52 BP 109/55 L 09/22/23 10:08 Pulse Ox 92 09/22/23 07:36 O2 Del Method Room Air 09/22/23 07:36 O2 Flow Rate 2 09/22/23 00:00 Oxygen Flow Rate 2 09/17/23 17:00 BMI result Body Mass Index 25.1 Const: General: cooperative, healthy appearing, comfortable, no acute distress, well developed and alert Eyes: Sclerae: sclerae normal GI: Other: Abd-Soft, NT, no mass, somewhat distended Extrem: General: Yes edema (Pretibial edema) Objective Data Active Medications Albuterol/Ipratropium (Albuterol/Iprat 2.5/0.5mg 3 Ml Ampul.Neb) 3 ml INHALE RQ4H WHILE AWAKE [facility] Last Admin: 09/22/23 08:52 Dose: 3 ml Documented By: JIMMY Atorvastatin Calcium (Atorvastatin Calcium 10 Mg Tablet) 10 mg PO BEDTIME [facility] Last Admin: 09/21/23 21:11 Dose: 10 mg Documented By: OZ Carvedilol (Carvedilol 3.125 Mg Tablet) 3.125 mg PO BID [facility]; Protocol Last Admin: 09/22/23 08:30 Dose: 3.125 mg Documented By: VAZQUEZ Diphenhydramine HCl (Diphenhydramine Hcl 25 Mg Capsule) 25 mg PO Q6H PRN PRN Reason: throat swellin Furosemide (Furosemide 40 Mg/4 Ml Vial) 40 mg IVPUSH BID@0900,1800 [facility]; Protocol Last Admin: 09/22/23 10:08 Dose: 40 mg Documented By: VAZQUEZ Glucose (Glucose Gel 15 Gm Gel..Gram.) 15 gm PO Q15M PRN; Protocol PRN Reason: per Hypoglycemia Standing Ord. Dextrose (D10) 250 mls @ 750 mls/hr IV Q15M PRN; Protocol PRN Reason: per Hypoglycemia Standing Ord. Insulin Human Lispro (Insulin Lispro 100 Unit/Ml 3 Ml Vial) 0 unit SUBCUT QIDAS [facility]; Protocol Last Admin: 09/22/23 07:51 Dose: Not Given Documented By: VAZQUEZ Non-Admin Reason: No Insulin Coverage Meclizine HCl (Meclizine Hcl 12.5 Mg Tablet) 12.5 mg PO BEDTIME [facility] Last Admin: 09/21/23 21:11 Dose: 12.5 mg Documented By: OZ Omeprazole (Omeprazole 40 Mg Capsule.Dr) 40 mg PO DAILY@0630 [facility] Last Admin: 09/22/23 05:37 Dose: 40 mg Documented By: OZ Ondansetron HCl (Ondansetron Hcl 4 Mg/2 Ml Vial) 4 mg IVPUSH Q6H PRN PRN Reason: Nausea and Vomiting Last Admin: 09/18/23 00:46 Dose: 4 mg Documented By: ADALBERTO Pregabalin (Pregabalin 200 Mg Capsule) 200 mg PO BID [facility] Last Admin: 09/22/23 08:30 Dose: 200 mg Documented By: VAZQUEZ Sodium Chloride (0.9 % Sodium Chloride Flush 3 Ml Syringe) [facility] Last Admin: 09/22/23 08:31 Dose: 3 ml Documented By: VAZQUEZ Sucralfate (Sucralfate Oral Suspension 1 Gm/10 Ml Oral.Susp) 1 gm PO QIDAS [facility] Last Admin: 09/22/23 08:31 Dose: 1 gm Documented By: VAZQUEZ Tamsulosin HCl (Tamsulosin Hcl 0.4 Mg Capsule) 0.4 mg PO BEDTIME [facility] Last Admin: 09/21/23 21:11 Dose: 0.4 mg Documented By: OZ Labs 09/21/23 06:30 09/21/23 06:30 Labs: Laboratory Results - last 24 hr 09/21/23 09/21/23 09/21/23 10:51 16:00 20:37 POC Glucose 237 H 270 H 266 H 09/22/23 07:41 POC Glucose 158 H Microbiology Microbiology Results: Microbiology 09/18/23 14:40 Gram Stain - Final Thoracentesis Fluid Anaerobic Culture - Preliminary No growth to date. 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 PPI, Carafate, monitor hemoglobin - stable mild acute hypernatremia Resolved Acute hypoxic respiratory failure secondary to acute on chronic diastolic CHF and right pleural effusion as well as possible pneumonia Uvula swelling resolved Status post Decadron completed Unasyn IV Lasix s/p therapeutic right thoracentesis times 2 not enough fluid for paracentesis bph with urinary retention flomax, straight caths Diabetes Insulin Hypertension Coreg DVT prophylaxis: Mechanical devices due to GI bleed DNR/DNI reason for continued hospitalization: iv diuresis, hypoxia on exertion Quality Stroke Does the patient have a stroke diagnosis?: No VTE Prior VTE?: No VTE Risk Level:: Medical - moderate - high VTE Device Contraindication: N/A - Device Ordered VTE Drug Contraindication: N/A - Med Ordered
[2023-09-22 11:29] LABS: Glucose, Whole Blood 272 mg/dL (60-115)
[2023-09-22] MEDS: Insulin Lispro 100 UNIT/ML 3 ML VIAL SUBCUT ×2 (12:27→17:12)
[2023-09-22 16:29] LABS: Glucose, Whole Blood 311 mg/dL (60-115)
--- NOTE | 2023-09-22 16:53 | PC.NURSE ---
Patient this morning reported peeing in small amounts, bladder scanned for 273 ml of residual urine. MD notified and placed order to straight cath. When this RN was about to straight cath, patient mentioned he used the bathroom once more. Bladder scanned again for 0 ml residual.
--- NOTE | 2023-09-22 17:47 | PC.NURSE ---
bladder scanned at 16:06, 144 ml of urine.
[2023-09-22 21:33] LABS: Glucose, Whole Blood 174 mg/dL (60-115)
[2023-09-22] MEDS: Atorvastatin Calcium 10 MG TABLET PO (22:34)
[2023-09-22] MEDS: Meclizine HCl 12.5 MG TABLET PO (22:35)
[2023-09-22] MEDS: Tamsulosin HCL 0.4 MG CAPSULE PO (22:35)
[2023-09-23] VITALS: BP 113/52; PULSE 88; RESP 18; TEMP 37.4; O2SAT 86
[2023-09-23 03:05] VITALS: BP 106/53; PULSE 83; RESP 20; O2SAT 91
[2023-09-23] MEDS: Omeprazole 40 MG CAPSULE.DR PO (06:25)
[2023-09-23] MEDS: 0.9 % Sodium Chloride Flush 3 ML SYRINGE IVFLUSH ×2 (06:26→08:49)
[2023-09-23 07:53] LABS: Hematocrit 33.3 % (42.0-52.0); Hemoglobin 11.6 g/dl (14.0-18.0); Mean Corpuscular HGB Conc 34.8 g/dl (31.0-36.0); Mean Corpuscular Hemoglobin 31.9 pg (27.0-33.0); Mean Corpuscular Volume 91.5 fL (80.0-98.0); Red Blood Count 3.64 X10*6/uL (4.60-5.80); Red Cell Distribution Width 14.6 % (11.0-16.0); White Blood Count 6.2 X10*3/uL (4.8-10.8)
[2023-09-23 08:00] VITALS: BP 117/56; PULSE 87; RESP 20; TEMP 36.2; O2SAT 91
[2023-09-23 08:07] LABS: Platelet Count 49 X10*3/uL (160-400)
[2023-09-23 08:08] LABS: Alanine Aminotransferase 38 U/L (0-40); Albumin Level 3.2 g/dL (3.5-5.0); Alkaline Phosphatase 303 U/L (39-117); Anion Gap 12 (12-20); Aspartate Amino Transferase 47 U/L (5-37); Bilirubin Direct 0.9 mg/dL (0.0-0.5); Bilirubin Total 2.2 mg/dL (0.0-1.0); Blood Urea Nitrogen 18 mg/dL (9-16); Calcium 8.4 mg/dL (8.4-10.2); Carbon Dioxide 27 mmol/L (22-29); Chloride 101 mmol/L (96-108); Creatinine Clr Calc Pharmacy 54.5; Estimated Glomerular Filt Rate > 60; Glucose Fasting 168 mg/dL (60-99); Magnesium 1.8 mg/dL (1.6-2.6); Potassium 3.3 mmol/L (3.3-5.1); Sodium 137 mmol/L (135-145); Total Protein 6.3 g/dL (6.5-8.0)
[2023-09-23 08:16] LABS: B Type Natriuretic Peptide 16 pg/mL (<100)
[2023-09-23 08:21] LABS: Glucose, Whole Blood 183 mg/dL (60-115)
[2023-09-23 08:49] VITALS: BP 117/56; PULSE 87
[2023-09-23] MEDS: Furosemide 40 MG/4 ML VIAL IVPUSH (08:49)
[2023-09-23] MEDS: Pregabalin 200 MG CAPSULE PO (08:49)
[2023-09-23] MEDS: carvediloL 3.125 MG TABLET PO (08:49)
[2023-09-23] MEDS: Sucralfate Oral Suspension 1 GM/10 ML ORAL.SUSP PO (08:49)
[2023-09-23 09:03] VITALS: PULSE 89; PULSE 91; PULSE 93; PULSE 95; O2SAT 86; O2SAT 89; O2SAT 90; O2SAT 91
--- NOTE | 2023-09-23 09:19 | PM.DS ---
DS: Providers Provider Date of Service: 09/23/23 Date of admission: 09/15/23 09:53 Primary care physician: Pete Veras MD Consults: 09/15/23 08:31 Consult to Gastroenterology Routine Consulting Provider: Sd Phillips Reason for consultation: Gi bleed Has provider been notified: No DS: Diagnosis Discharge Diagnosis (1) Pneumonia: Status: Acute (2) Abdominal ascites: Status: Acute (3) Acute upper GI bleed: Status: Acute DS: Summary Hospital Course Hospital Course: from initial hpi: 78 y/o Mhypertension, acid reflux disease, type 2 diabetes, elevatedcholesterol, history of skin cancer, BPH, Kerr's esophagus, arthritis of the feet, Nonalcoholic-patient says that 1 days ago he went to [employer] for gambling and afterwards he came home and started having vomiting episode with ted blood initially time x2-patient decided to come to the emergency room he also had 2 coffee-ground episode in the emergency room, last episode was in 05:00 around. Currently patient denies any chest pain orsob or cough or fever or dizziness or nausea vomiting or abdominal pain. Vitals stable, initial H&H was around 10. CT abdomen: Cirrhotic liver with splenomegaly, varices and small volume in your ascites.Mild right colonic wall thickening may be related to portal colopathy. Patient was started on PPI, octreotide drip-admission was requested for upper GI bleed-patient was given 1 L fluid, ppi, antibiotics and requested admission for upper GI bleed. Type and cross done. Lab imaging EKG reviewed: hb/hct: 10.4/30.3 - trending down to 9.6/28.5 platlets trending down from 54-40 pt/inr -fine ekg-nsr. ct abd: 1. Cirrhotic liver with splenomegaly, varices and small volume ascites. 2. Mild right colonic wall thickening may be related to portal colopathy. 3. Partially imaged right pleural effusion with right lung base consolidation. 4. No evidence for active GI bleeding. Ct chest: 1. Moderate right pleural effusion with dependent consolidation at the right lung base likely representing atelectasis. 2. Cirrhotic liver with splenomegaly. 3. Thickening of the distal esophagus. abd us: Main portal vein is patent with appropriate hepatopedal flow. Trace ascites seen in the right abdomen and small volume ascites in the left lower quadrant. hospital course: Patient was admitted for acute blood loss anemia due to acute variceal bleed and GOLD cirrhosis. He received 1 unit PRBC and hemoglobin remained stable had no further bleeding. Underwent EGD with banding. He completed course of octreotide and was given PPI now on p.o. PPI and Carafate. He should follow up with Gastroenterology as outpatient. His beta-klarissa was changed from nadolol to carvedilol. For mild acute hypernatremia this resolved. Course was complicated by acute hypoxic respiratory failure secondary to acute on chronic diastolic CHF and right pleural effusion as well as possible pneumonia. He completed course of Unasyn. He was treated with IV Lasix and diuresed well. He underwent 2 therapeutic right thoracentesis consistent with transudate, paracentesis was attempted but did not have enough fluid. He will continue on Lasix. Course was complicated by BPH with urinary retention. He was continued on Flomax but requires to continue straight catheterization 3 times a day at home. He should follow up with Urology as outpatient. For diabetes was continue insulin. For hypertension was continued on carvedilol. Patient is feeling much better but still hypoxic on ambulation and will be discharged home on oxygen on ambulation. Time Attestation Discharge Coordination Time (in mins): 37 Quality: Safe Use of Opioids Does Pt have an Active Cancer Diagnosis on the Problem List?: No Quality: Stroke Does the patient have a stroke diagnosis?: No Physical Exam Vital Signs: Vital Signs: Last Vital Signs Temp 97.2 F 09/23/23 08:00 Pulse 87 09/23/23 08:49 Resp 20 09/23/23 08:00 BP 117/56 L 09/23/23 08:49 Pulse Ox 91 L 09/23/23 08:00 O2 Del Method Room Air 09/23/23 08:00 O2 Flow Rate 2 09/23/23 03:05 Oxygen Flow Rate 2 09/17/23 17:00 BMI result Body Mass Index 25.1 Const: General: cooperative, healthy appearing, comfortable, no acute distress, well developed and alert Eyes: Sclerae: sclerae normal GI: Other: Abd-Soft, NT, no mass, somewhat distended Extrem: General: Yes edema (Pretibial edema) DS: Data Data Completed and Pending Labs on day of discharge: Laboratory Results - last 24 hr 09/22/23 09/22/23 09/22/23 11:18 16:23 21:18 WBC RBC Hgb Hct MCV MCH MCHC RDW Plt Count MPV Absolute Nucleated RBC Nucleated RBC % (auto) Sodium Potassium Chloride Carbon Dioxide Anion Gap BUN Creatinine Estim Creat Clear Calc Estimated GFR POC Glucose 272 H 311 H 174 H Fasting Glucose Calcium Magnesium Total Bilirubin Direct Bilirubin AST ALT Alkaline Phosphatase B-Natriuretic Peptide Total Protein Albumin 09/23/23 09/23/23 07:06 08:04 WBC 6.2 RBC 3.64 L Hgb 11.6 L Hct 33.3 L MCV 91.5 MCH 31.9 MCHC 34.8 RDW 14.6 Plt Count 49 L MPV 11.0 Absolute Nucleated RBC 0.000 Nucleated RBC % (auto) 0.0 Sodium 137 Potassium 3.3 Chloride 101 Carbon Dioxide 27 Anion Gap 12 BUN 18 H Creatinine 0.97 Estim Creat Clear Calc 54.5 Estimated GFR > 60 POC Glucose 183 H Fasting Glucose 168 H Calcium 8.4 Magnesium 1.8 Total Bilirubin 2.2 H Direct Bilirubin 0.9 H AST 47 H ALT 38 Alkaline Phosphatase 303 H B-Natriuretic Peptide 16 Total Protein 6.3 L Albumin 3.2 L Preliminary micro results at discharge 09/18/23 14:40 Anaerobic Culture - Preliminary Thoracentesis Fluid No growth to date. Discharge Plan Discharge Anticipated Discharge Date/Time: 09/23/23 09:16 Patient Disposition: Home Health Service Discharge Diagnosis: variceal bleed, chf Referrals: Jefry Emmanuel MD [Physician] - 1 Week Pete Veras MD [Primary Care Provider] - 1 Week Sd Phillips MD [Physician] - 1 Week Discharge Medications: New sucralfate 100 mg/mL Suspension 1 g PO QIDACHS Qty: 360 0RF carvedilol 3.125 mg Tablet 3.125 mg PO BID Qty: 180 0RF Protocol: Hold for SBP/HR < HOLD for SBP < : 90 HOLD for HR < : 60 Continued metformin 500 mg tablet 1 tab PO BID acetaminophen [Tylenol] 325 mg Tablet 650 mg PO Q6H PRN (Reason: Pain) meclizine 12.5 mg tablet 1 tab PO BEDTIME simvastatin 20 mg tablet 1 tab PO BEDTIME omeprazole 20 mg capsule,delayed release(DR/EC) 1 cap PO MOWEFR@0630 tamsulosin 0.4 mg capsule 0.4 mg PO BEDTIME furosemide 20 mg tablet 40 mg PO DAILY tadalafil 20 mg tablet 10 mg PO DAILY PRN (Reason: Erectile Dysfunction) pregabalin 200 mg capsule 200 mg PO BID Discontinued lisinopril 10 mg tablet 20 mg PO DAILY nadolol 20 mg tablet 20 mg PO DAILY Discharge Orders: Discharge Order (Routine); Ordered 09/23/23 Ordered By: Ez Bolton Diet: Advance to usual diet Activity on Discharge: As tolerated Stand Alone Forms: Patient Portal Discharge page Print Language: Scottish Care Plan Goals: manage cirrhosis, chf, hypoxia, urinary retention Health Concerns: hypoxia, chf, variceal bleed, urinary retention Plan of Treatment: o2 as directed, follow up gi - beta klarissa changed to coreg, started carafate. straight catheterization 3 times per day, follow up with urology Assessment: see above
--- NOTE | 2023-09-23 09:26 | W.MHC.F2F ---
Service Date Service Date: 09/23/23 Encounter Date of encounter: 09/23/23 Reasons for Services Signs and symptoms assessed: sob on exertion Reason for retirement: medication management, medication treatment, teach disease management, GI/ assessment (straight cath 3 times per day (by patient), pls assist with education) and other (new o2 on exertion) Homebound: Leaving the home is medically contraindicated at this time without the asist of a device and/or another person due th the listed conditions above and below. Reason homebound: shortness of breath with minimal effort Certification: Based on the above findings, I certify that this patient is confined to the home and needs intermittent retirement care, physical therapy and/or speech therapy, or continues to need occupational therapy. The patient is under my care, and I have initiated the establishment of the plan of care. The patient will be followed by a physician who will periodically review the plan of care. Time Spent With Patient Time: Total time managing care of this patient today ____ minutes.
--- NOTE | 2023-09-23 09:54 | MHC.CM.PN ---
Patient has been medically cleared for dc to home today, with services. A referral has been made to [facility], who is aware of today's dc. CM met with Patient and his at bedside and addressed IMM with them; original was given to Patient and a copy has been placed on the chart.
--- NOTE | 2023-09-23 11:29 | PC.NURSE ---
Patient educated on how to straight catheterize himself at home. Supplied with 3 kits to bring home until [facility] comes to visit.
== END 2023-09-23 11:57 | disposition home health service (06) | DRG 432 ==
LOC: HO.ED 07:29 → HO.EDOVER 10:04 → HO.IMC 17:25
PROVIDERS: Emergency Medicine; Internal Medicine; Student in an Organized Health Care Education/Training Program; Admitting Provider Internal Medicine; Emergency Provider Emergency Medicine; PCP Internal Medicine; Visit Provider Internal Medicine
PROC: 06L38CZ Occlusion of Esophageal Vein with Extraluminal Device, Via Natural or Artificial Opening Endoscopic (ICD-10-PCS; principal; 2023-09-15 16:00)
DX: K74.69 Other cirrhosis of liver (principal); I50.33 Acute on chronic diastolic (congestive) heart failure; I85.11 Secondary esophageal varices with bleeding; J18.9 Pneumonia, unspecified organism; J91.8 Pleural effusion in other conditions classified elsewhere; R18.8 Other ascites; K76.6 Portal hypertension; E87.0 Hyperosmolality and hypernatremia; D62 Acute posthemorrhagic anemia; N40.1 Benign prostatic hyperplasia with lower urinary tract symptoms; R33.8 Other retention of urine; I11.0 Hypertensive heart disease with heart failure; R60.0 Localized edema; K75.81 Nonalcoholic steatohepatitis (NASH); K31.89 Other diseases of stomach and duodenum; K44.9 Diaphragmatic hernia without obstruction or gangrene; E11.9 Type 2 diabetes mellitus without complications; K22.70 Barrett's esophagus without dysplasia; E78.5 Hyperlipidemia, unspecified; Z79.84 Long term (current) use of oral hypoglycemic drugs; Z79.899 Other long term (current) drug therapy
CPT/HCPCS: 32555; 36415; 71045; 71250; 74178; 76705; 80048; 80053; 80076; 80307; 81003; 82140; 82248; 82271; 82272; 82607; 82746; 82947; 83615; 83735; 83880; 84155; 84157; 84439; 84443; 84484; 85025; 85027; 85610; 85730; 86850; 86900; 86901; 86923; 87070; 87073; 87205; 89051; 92950; 93005; 93306; 94640; 94660; 97161; 99285; C9113; J0295; J0456; J0696; J1100; J1940; J2250; J2354; J2405; J2704; P9016; P9047; P9073; Q9957; Q9967

== ENCOUNTER → 2023-09-15 02:26 | Outpatient (BNV) | payer MEDICARE, SELFPAY | PROVIDERS: Admitting Provider Internal Medicine; Emergency Provider Emergency Medicine; PCP Internal Medicine; Visit Provider Internal Medicine Cardiovascular Disease | DX: K92.0 Hematemesis (principal) | CPT/HCPCS: 93010 ==

== ENCOUNTER 2023-09-15 09:53 | Outpatient (BNV) | payer MEDICARE, SELFPAY | END 2023-09-16 02:24 | PROVIDERS: Admitting Provider Internal Medicine; Emergency Provider Emergency Medicine; PCP Internal Medicine; Visit Provider Internal Medicine Cardiovascular Disease | DX: R00.1 Bradycardia, unspecified (principal) | CPT/HCPCS: 93010 ==

== ENCOUNTER 2023-09-15 09:53 | Outpatient (BNV) | payer MEDICARE, SELFPAY | END 2023-09-19 07:00 | PROVIDERS: Admitting Provider Internal Medicine; Emergency Provider Emergency Medicine; PCP Internal Medicine; Visit Provider Internal Medicine Cardiovascular Disease | DX: I50.9 Heart failure, unspecified (principal) | CPT/HCPCS: 93306 ==

== ENCOUNTER 2023-09-15 09:53 | Outpatient (BNV) | payer MEDICARE, SELFPAY | END 2023-09-21 12:32 | PROVIDERS: Admitting Provider Internal Medicine; Emergency Provider Emergency Medicine; PCP Internal Medicine; Visit Provider Physician Assistant Surgical | DX: J90 Pleural effusion, not elsewhere classified (principal) | CPT/HCPCS: 32555 ==

== ENCOUNTER 2023-09-15 09:53 | Outpatient (BNV) | payer MEDICARE, SELFPAY | END 2023-09-18 14:38 | PROVIDERS: Admitting Provider Internal Medicine; Emergency Provider Emergency Medicine; PCP Internal Medicine; Visit Provider Physician Assistant Surgical | DX: J90 Pleural effusion, not elsewhere classified (principal) | CPT/HCPCS: 32555 ==

== ENCOUNTER 2023-09-15 09:53 | Outpatient (BNV) | payer MEDICARE, SELFPAY | END 2023-09-19 10:38 | PROVIDERS: Admitting Provider Internal Medicine; Emergency Provider Emergency Medicine; PCP Internal Medicine; Visit Provider Physician Assistant Surgical | DX: K74.60 Unspecified cirrhosis of liver (principal) | CPT/HCPCS: 76705 ==

== ENCOUNTER → 2023-09-15 09:53 | Outpatient (BNV) | payer MEDICARE, SELFPAY | PROVIDERS: Admitting Provider Internal Medicine; Emergency Provider Emergency Medicine; PCP Internal Medicine; Visit Provider Internal Medicine | DX: J18.9 Pneumonia, unspecified organism (principal); R18.8 Other ascites; K92.2 Gastrointestinal hemorrhage, unspecified | CPT/HCPCS: 99223; 99232; 99233; 99239; 99499; G0180 ==

== ENCOUNTER → 2023-09-15 09:53 | Outpatient (BNV) | payer MEDICARE, SELFPAY | PROVIDERS: Admitting Provider Internal Medicine; Emergency Provider Emergency Medicine; PCP Internal Medicine; Visit Provider Physician Assistant Surgical | DX: J90 Pleural effusion, not elsewhere classified (principal) | CPT/HCPCS: 32557 ==

== ENCOUNTER 2023-09-27 13:06 | Outpatient (REF) | payer MEDICARE, SELFPAY ==
--- NOTE | ~2023-09-27 | XR_ITS ---
EXAMINATION: XR CHEST CLINICAL INFORMATION: Pneumonia. Cough COMPARISON: 09/21/2023 TECHNIQUE: 2 views of the chest were obtained. FINDINGS: Right basilar infiltrate and effusion with associated atelectasis appears slightly worse. The left lung however is clear. This reflects improvement. Heart size borderline with normal caliber pulmonary vessels. XR/XR chest 2V IMPRESSION: Increasing atelectasis or infiltrate at the right base with an associated small right pleural effusion.
== END 2023-09-27 13:07 | disposition home or self-care (01) ==
LOC: HO.XRAY 13:06
PROVIDERS: PCP Family Medicine; Visit Provider Family Medicine
DX: R05.9 Cough, unspecified (principal); J90 Pleural effusion, not elsewhere classified
CPT/HCPCS: 71046

== ENCOUNTER 2023-09-28 09:39 | Emergency (ER) | payer MEDICARE, SELFPAY ==
[2023-09-28] VITALS (14 sets, daily range): BP systolic 76–143; BP diastolic 45–92; PULSE 68–84; RESP 16–20; TEMP 32–36.6; O2SAT 93–100; BMI 23.8
--- NOTE | ~2023-09-28 | XR_ITS ---
EXAMINATION: XR CHEST CLINICAL INFORMATION: Post intubation and central line. COMPARISON: Chest x-ray 09/27/2023. TECHNIQUE: Frontal view of the chest was obtained. FINDINGS: ET tube 4.3 cm above the rené. New right IJ central venous catheter with catheter tip likely at the cavoatrial junction. Leftward shift of the mediastinum. The cardiac silhouette is enlarged. There has been significant increase in size of now large right pleural effusion when compared to the chest x-ray from 09/27/2023. No visible pneumothorax. New left basilar airspace disease may reflect pneumonia or atelectasis XR/XR chest 1V IMPRESSION: Significant increase in size of now large right pleural effusion with contralateral mediastinal shift. This could potentially represent hemothorax in the setting of recent line placement. Clinical correlation necessary. ET tube 4.3 cm above the rené. New left basilar airspace disease may represent atelectasis or pneumonia.
--- NOTE | 2023-09-28 09:45 | PC.NURSE ---
Pt brought in by ambulance, EMS reports multiple episodes of vomiting bright blood at home this morning along with one episode of syncope. EMS reports low BPs, pale and in and out of consciousness. EMS gave approx 500 mL NS and 700 mg of TXA, IV in right AC 20G. Pt noted to be alert on arrival, answering questions. Breathing elevated, skin pale and clammy. BP hypotensive, pt placed on teletypesetter monitor NSR and pacer pads as precautions. Multiple RNs and providers at bedside. Pt had one episode of bright red blood vomiting approx 300-400 mL of blood noted. IVs placed in the left AC 20G and right upper bicep 20G. ABD noted to be distended and hard. No blood noted from rectum area.
[2023-09-28] MEDS: Octreotide Acetate 100 MCG/ML AMPUL 50 MCG IVPUSH (09:47)
[2023-09-28 09:48] LABS: Glucose, Whole Blood 164 mg/dL (60-115)
[2023-09-28] MEDS: Pantoprazole Sodium 40 MG/10 ML VIAL IVPUSH (09:48)
[2023-09-28 09:51] LABS: MANUAL DIFF FLAG NO
[2023-09-28 09:52] LABS: Basophils Absolute Auto 0.1 X10*3/uL (0.0-0.2); Basophils Percent Auto 0.8 % (0-2); Eosinophils Absolute Auto 0.2 X10*3/uL (0.0-0.4); Eosinophils Percent Auto 3.8 % (0-4); Hematocrit 27.2 % (42.0-52.0); Hemoglobin 9.3 g/dl (14.0-18.0); Imm Gran Abs Auto 0.03 X10*3/uL (0.00-0.03); Imm Gran Pct Auto 0.5 % (0.0-0.4); Lymphocytes Absolute Auto 0.9 X10*3/uL (1.2-4.9); Lymphocytes Percent Auto 15.4 % (20-40); Mean Corpuscular HGB Conc 34.2 g/dl (31.0-36.0); Mean Corpuscular Hemoglobin 32.4 pg (27.0-33.0); Mean Corpuscular Volume 94.8 fL (80.0-98.0); Mean Platelet Volume 11.4 fL (9.4-12.4); Monocytes Absolute Auto 0.5 X10*3/uL (0.1-1.2); Monocytes Percent Auto 8.2 % (2-11); Neutrophils Absolute Auto 4.4 x10*3/uL (2.0-8.3); Neutrophils Percent Auto 71.3 % (45-73); Red Blood Count 2.87 X10*6/uL (4.60-5.80); Red Cell Distribution Width 14.3 % (11.0-16.0); White Blood Count 6.1 X10*3/uL (4.8-10.8)
[2023-09-28 09:53] LABS: Platelet Count 75 X10*3/uL (160-400)
[2023-09-28 09:57] LABS: INTERNATIONAL NORM RATIO 1.3 (0.9-1.1); Prothrombin Time 15.9 SEC (11.1-13.3)
[2023-09-28] MEDS: Rocuronium Bromide 50 MG/5 ML VIAL IVPUSH (10:01)
[2023-09-28] MEDS: Etomidate 20 MG/10 ML VIAL IVPUSH (10:01)
[2023-09-28 10:08] LABS: Alanine Aminotransferase 31 U/L (0-40); Albumin Level 2.6 g/dL (3.5-5.0); Alkaline Phosphatase 296 U/L (39-117); Anion Gap 15 (12-20); Aspartate Amino Transferase 41 U/L (5-37); Bilirubin Total 2.1 mg/dL (0.0-1.0); Blood Urea Nitrogen 22 mg/dL (9-16); Calcium 8.1 mg/dL (8.4-10.2); Carbon Dioxide 20 mmol/L (22-29); Chloride 112 mmol/L (96-108); Estimated Glomerular Filt Rate > 60; Glucose Random 203 mg/dL (60-115); Magnesium 1.7 mg/dL (1.6-2.6); Potassium 4.5 mmol/L (3.3-5.1); Sodium 142 mmol/L (135-145); Total Protein 5.4 g/dL (6.5-8.0)
[2023-09-28] MEDS: fentaNYL citrate/NS 1,000 MCG/100 ML PLAST..BAG 2.5 MCG IVCONT (10:11)
--- NOTE | 2023-09-28 10:12 | ED_ITS ---
HPI - General Adult General Chief complaint: GI Bleed Stated complaint: DARK STOOL SYNCOPE Source: patient and EMS Mode of arrival: EMS Limitations: no limitations History of Present Illness ED Provider: SHEA PRETTY narrative: 78 year old male hx of gerd, hypertension, DM, hld, skin cancer, bph, barretts esophagus, arthritis, non alcoholic cirrhosis, abdominal ascites, recurrent GI bleeds, not on anticoagulation/ASA/nsaids (on ppi and carafate/carvedilol) presents w/ dark black stool since this morning multiple episodes and vomiting blood with syncope at home no trauma reported. Recently admitted to this facility per patient, and followed by GI Dr. Phillips. Hx of recent EGD on 09/15/2023 s/p 7 bands candidate for TIPS procedure per GI given vein patency. JHe also had a recurrent R sided effusion s/p thoracentesis on 09/20 that was found to be consistent with transudate. also just put on PRN oxygen after DC 09/22. EMS on arrival to ED had started IVF, patient was almost in trendelenburg and they had given him tranexamic acid approx 700mg - I stopped the tranexamic acid on arrival and no more was given given its known non efficacy in GIB. notes today he was at home started vomiting copious amounts of brb and having dark black stools could not breathe and was unresponsive on and off so she called 911 MD complaint: UGIB and LGIB/syncope Onset (ago): hour(s) (2) Location: mouth Radiation: non-radiation Severity: severe Relieving factors: none Exacerbating factors: none Associated symptoms: other (weakness, syncope) Treatments prior to arrival: none Related Data Home Medications ?Medication ?Instructions ?Recorded ?Confirmed acetaminophen 325 mg tablet 650 mg PO Q6H PRN Pain 07/27/20 09/15/23 (Tylenol) meclizine 12.5 mg tablet 1 tab PO BEDTIME 07/27/20 09/15/23 metformin 500 mg tablet 1 tab PO BID 07/27/20 09/15/23 omeprazole 20 mg capsule,delayed 1 cap PO MOWEFR@0630 07/27/20 09/15/23 release simvastatin 20 mg tablet 1 tab PO BEDTIME 07/27/20 09/15/23 furosemide 20 mg tablet 40 mg PO DAILY 09/15/23 09/15/23 pregabalin 200 mg capsule 200 mg PO BID 09/15/23 09/15/23 tadalafil 20 mg tablet 10 mg PO DAILY PRN Erectile 09/15/23 09/15/23 Dysfunction tamsulosin 0.4 mg capsule 0.4 mg PO BEDTIME 09/15/23 09/15/23 Previous Rx's ?Medication ?Instructions ?Recorded carvedilol 3.125 mg tablet 3.125 mg PO BID #180 tabs 09/23/23 sucralfate 100 mg/mL oral 1 g (10 mL) PO QIDACHS #360 mL 09/23/23 suspension Allergies Allergy/AdvReac Type Severity Reaction Status Date / Time [place] nut Allergy Severe Facial Verified 09/15/23 02:16 Swelling, itching Seasonal Allergies Allergy Intermediate Nasal Verified 09/15/23 02:16 congestion Review of Systems 2 Review of Systems: Constitutional : No Fever, No Chills, pos Fatigue ENT/Mouth : No sore throat, No Rhinorrhea Eyes: No Eye Pain, No Swelling, No Redness Cardiovascular : No Chest Pain, No SOB, No Dyspnea on Exertion Respiratory : No Cough, No Sputum Gastrointestinal : pos Nausea, pos Vomiting, No Diarrhea, No abdominal Pain, pos hematochezia, pos hematemesis Genitourinary : No Dysuria, No Urinary Frequency, No Hematuria, Musculoskeletal : No joint pain, No Myalgias, No Joint Swelling Skin : No Skin Lesions, No rash Neuro : No Weakness, No Numbness, No Dizziness, positive Headache Psych : No Anxiety/Panic, No Depression All other systems reviewed and are negative Yes all other systems are reviewed and are negative [facility] Past Medical History Attestation statement: The following information was validated with the patient. Source: old records reviewed and nursing notes reviewed Medical History COVID-19 vaccine series completed BPH (benign prostatic hyperplasia) Loud snoring Post-ERCP acute pancreatitis History of anesthesia reaction History of skin cancer Hyperlipidemia Diabetes mellitus Kerr esophagus Hiatal hernia GERD (gastroesophageal reflux disease) History of hepatitis B Hypertension Surgical History Hx of foot surgery Hx of nasal septoplasty History of dental surgery Hx of endoscopic retrograde cholangiopancreatography Hx of appendectomy Hx of colonoscopy History of esophagogastroduodenoscopy (EGD) History of tracheostomy as a child Hx of cholecystectomy Social History Social History Household Members: Spouse Housing: House Are you a primary career manager to a significant other at home: No Do you presently have visiting nurse or other home services: No Alcohol intake: former Patient Tobacco Use Status: Former Tobacco user e-Cigarette/Vaping Use: Never Used Second Hand Smoke Exposure: No Advance Directives: Yes Advance Directives on File: Yes Advance Directives Date on File: 09/18/23 service: No Physical Exam ED Vital Signs: Vital Signs - 24 hr 09/28/23 09:46 09/28/23 09:54 09/28/23 10:03 Temperature Pulse Rate 84 68 80 Respiratory Rate 20 18 16 Blood Pressure 90/50 L 76/57 L 110/68 Pulse Oximetry 93 96 Oxygen Delivery Method Nasal Cannula Oxygen Flow Rate 2 Fraction of Inspired Oxygen 09/28/23 10:09 09/28/23 10:18 09/28/23 10:19 Temperature Pulse Rate 84 82 Respiratory Rate 16 16 Blood Pressure 143/92 H 106/62 Pulse Oximetry 99 98 Oxygen Delivery Method Mechanical Ventilation Oxygen Flow Rate Fraction of Inspired Oxygen 100 100 09/28/23 10:36 09/28/23 10:50 09/28/23 10:50 Temperature Pulse Rate 82 77 82 Respiratory Rate 16 16 16 Blood Pressure 123/70 100/61 100/61 Pulse Oximetry 99 100 100 Oxygen Delivery Method Mechanical Ventilation Mechanical Ventilation Oxygen Flow Rate Fraction of Inspired Oxygen 100 100 09/28/23 10:52 09/28/23 11:05 09/28/23 11:15 Temperature 97.9 F Pulse Rate 77 73 73 Respiratory Rate 16 16 16 Blood Pressure 97/63 80/47 L 98/59 L Pulse Oximetry 100 100 Oxygen Delivery Method Mechanical Ventilation Oxygen Flow Rate Fraction of Inspired Oxygen 100 09/28/23 11:18 Temperature Pulse Rate 70 Respiratory Rate 16 Blood Pressure 78/45 L Pulse Oximetry Oxygen Delivery Method Oxygen Flow Rate Fraction of Inspired Oxygen BMI result Body Mass Index 23.8 Appearance: Alert.? Oriented X3.?+ moderate distress , actively vomiting blood with clots then had brief syncopal episode on stretcher Head: Normocephalic, atraumatic, no step-offs or deformities Eyes: Pupils equal, round and reactive to light.? Neck: Normal inspection.? Neck supple.? CVS: Normal heart rate and rhythm.? Pulses normal.? Respiratory: + mild respiratory distress.? Breath sounds normal.? Abdomen: Soft, distended abdomen, nontender.? Skin: Skin cool and clammy? Pale skin color.? Normal skin turgor.? Extremities: No lower extremity edema.? No calf ttp. Global weakness Neuro: Oriented X 3.? No motor deficit.? No sensory deficit. CN 2-12 intact Course Course Course Narrative: 950am Dr. Phillips aware states given procedure 09/14 with 7 variceal bands done and known patent veins on US try to send to tertiary center for possible TIPS. will have PA call to transfer while I remain at bedside Reevaluation(s) Reevaluation #1: Discussed this case with [facility] Fellow Dr. Kincaid. Time: 10:16 Reevaluation #2: Patient's RBCs low 2.87, hemoglobin 9.3, hematocrit 27.2, normocytic anemia likely secondary to acute upper and lower GI bleed. Low platelets 75. Massive transfusion protocol paged, receiving FFP, platelets and PRBCs. Chemistry with no acute electrolyte abnormalities requiring intervention. Slightly elevated BUN likely secondary to dehydration. T bili 2.1, appears to be around patient's baseline. Alk-phos elevated however appears to be around patient's baseline. PT 15.9 INR 1.3. COVID pending for ICU admission at [facility]. Time: 10:27 Reevaluation #3: CXR ordered for confirmation of tube and central line Time: 10:28 Additional Reevaluation(s): discussed with Jacqueline he advises against OG tube decompression in the ED Medications Administered Generic Name Dose Route Start Last Admin Trade Name Freq PRN Reason Stop Dose Admin Pantoprazole Sodium 80 mg/ 100 mls @ 10 mls/hr 09/28/23 09:45 09/28/23 10:20 Sodium Chloride IV 8 mg/hr .Q10H ARACELIS 10 mls/hr Administration 8 MG/HR Fentanyl 1,000 mcg in 100 mls @ 0 mls/hr 09/28/23 10:15 09/28/23 11:18 Sublimaze/Ns IVCONT 100 mcg/hr .Q0M ARACELIS 10 mls/hr Titration Protocol Per Protocol Midazolam HCl 50 mg in 50 mls @ 2 mls/hr 09/28/23 10:15 09/28/23 11:15 Versed IVCONT 1 mg/hr .Q24H ARACELIS 1 mls/hr Infusion 2 MG/HR Discontinued Medications Generic Name Dose Route Start Last Admin Trade Name Chuck PRN Reason Stop Dose Admin Etomidate 20 mg 09/28/23 10:22 09/28/23 10:01 Etomidate 20 Mg/10 Ml Vial IVPUSH 09/28/23 10:23 20 mg ONCE ONE Administration Ceftriaxone Sodium 2 gm/ 50 mls @ 100 mls/hr 09/28/23 09:43 09/28/23 11:08 Sodium Chloride IV 09/28/23 10:12 Infused ONCE ONE Infusion Sodium Chloride 100 mls @ 100 mls/hr 09/28/23 09:43 09/28/23 10:17 Ns IV 09/28/23 10:42 Infused ONCE ONE Infusion Sodium Chloride 100 mls @ 100 mls/hr 09/28/23 09:48 09/28/23 10:08 Ns IV 09/28/23 10:47 Infused ONCE ONE Infusion Sodium Chloride 100 mls @ 100 mls/hr 09/28/23 09:52 09/28/23 10:16 Ns IV 09/28/23 10:51 Infused ONCE ONE Infusion Sodium Chloride 100 mls @ 100 mls/hr 09/28/23 09:52 09/28/23 12:09 Ns IV 09/28/23 10:51 Not Given ONCE ONE Sodium Chloride 100 mls @ 100 mls/hr 09/28/23 09:52 09/28/23 12:09 Ns IV 09/28/23 10:51 Not Given ONCE ONE Sodium Chloride 100 mls @ 100 mls/hr 09/28/23 09:52 09/28/23 12:09 Ns IV 09/28/23 10:51 Not Given ONCE ONE Octreotide Acetate 50 mcg 09/28/23 09:41 09/28/23 09:47 Octreotide Acetate 100 Mcg/Ml Ampul IVPUSH 09/28/23 09:42 50 mcg ONCE ONE Administration Ondansetron HCl 4 mg 09/28/23 09:45 09/28/23 10:35 Ondansetron Hcl 4 Mg/2 Ml Vial IVPUSH 09/28/23 09:46 4 mg ONCE ONE Administration Pantoprazole Sodium 40 mg 09/28/23 09:41 09/28/23 09:48 Pantoprazole Sodium 40 Mg/10 Ml Vial IVPUSH 09/28/23 09:42 40 mg ONCE ONE Administration Rocuronium [place] 50 mg 09/28/23 10:21 09/28/23 10:01 Rocuronium [place] 50 Mg/5 Ml Vial IVPUSH 09/28/23 10:22 50 mg ONCE ONE Administration Procedures Central Line Placement Right IJ: Time Out Performed: Yes Patient Placed on Monitor/Pulse Ox: Yes MD Prep: mask, gown and gloves Central Line Prep: Chlorhexidine scrub Local Anesthetic: lidocaine 1% Amount of anesthesia used (mL): 3 Ultrasound Used for Placement: Yes Central Line Lumen Inserted: triple Post Procedure: sutured in place, good blood return, all ports aspirated, flushed, capped and sterile dressing applied Post Procedure X-Ray: tip of catheter in good position and no pneumothorax seen Patient Tolerated Procedure: well and no complications (one attempt large IJ noted on exam) Complications: none Intubation Intubation Type:: Endotracheal Tube Insertion Intubation Date:: 09/28/23 Time out performed: Yes sedative: Etomidate Mg Given: 20 paralytic: Rocuronium Mg Given: 50 Laryngoscope: Teressa ET Tube Size: 7.5 Tube Secured Depth (cm): 23 Tube Secured Location: lips Tube Placement Confirmation: visualized tube passing through cords, equal breath sounds bilaterally, no breath sounds over epigastrium and confirmation by capnometry Patient Tolerated Procedure: well and no complications Intubation Complications: none Additional Comments: blood noted in airway area and mouth - brb Medical Decision Making Medical Decision Making MDM Narrative: 78 yo m hx of recurrent GI bleeds followed by GI recently 7 bands on 09/15/2023 presents w/ upper and lower GI bleeding x 1 day. Not on thinners. Had syncopal episode and large volume hematemesis in ED - MTP called 3 units of blood ordered, unable to get platelets from [facility]. INR only 1.3. He denies aspirin or NSAID. Ceftriaxone, protonix bolus and gtt ordered, octreotide infusion. He has had 2 syncopal episodes now with large volume hematemesis concerned for airway protection he was electively intubated after talking to his . central line also to be placed. On exam- pale, global weakness, distended abdomen, activly vomiting blood. Hypotension noted. Hx and physical exam concerning for actively bleeding esophageal varices upper and lower GI bleed and hypovolemic shock. Fluids, antibiotics, MTP paged overhead. Patient intubated w/ RSI Dr. Corey taking this case. Differential Diagnosis Differential Diagnoses: The differential diagnosis associated with the presentation includes Hx and physical exam concerning for actively bleeding esophageal varices upper and lower GI bleed and hypovolemic shock. Admission/Observation Consideration of admission/observation: Escalation of care including admission/observation considered Likely ICU admission Consult Healthcare Provider Management of the patient was discussed with: [facility] Department Supervisor ICU transfer [facility] Lab Data MDM Lab Attestation statement: I reviewed the patient's lab results. 09/28/23 09:47 09/28/23 09:47 Labs: Lab Results 09/28/23 09/28/23 09/28/23 Range/Units 09:44 09:47 10:30 WBC 6.1 (4.8-10.8) X10*3/uL RBC 2.87 L D (4.60-5.80) X10*6/uL Hgb 9.3 L (14.0-18.0) g/dl Hct 27.2 L (42.0-52.0) % MCV 94.8 (80.0-98.0) fL MCH 32.4 (27.0-33.0) pg MCHC 34.2 (31.0-36.0) g/dl RDW 14.3 (11.0-16.0) % Plt Count 75 L D (160-400) X10*3/uL MPV 11.4 (9.4-12.4) fL Immature Gran % (Auto) 0.5 H (0.0-0.4) % Neut % (Auto) 71.3 (45-73) % Lymph % (Auto) 15.4 L (20-40) % Lam[place] % (Auto) 8.2 (2-11) % Eos % (Auto) 3.8 (0-4) % Baso % (Auto) 0.8 (0-2) % Lymph # (Auto) 0.9 L (1.2-4.9) X10*3/uL [place] # (Auto) 0.5 (0.1-1.2) X10*3/uL Eos # (Auto) 0.2 (0.0-0.4) X10*3/uL Baso # (Auto) 0.1 (0.0-0.2) X10*3/uL Abs Immat Gran (auto) 0.03 (0.00-0.03) X10*3/uL Absolute Neuts (auto) 4.4 (2.0-8.3) x10*3/uL Absolute Nucleated RBC 0.000 (0.0-0.012) X10*3/uL Nucleated RBC % (auto) 0.0 (0.0-0.2) /100WBC PT 15.9 H (11.1-13.3) SEC INR 1.3 H (0.9-1.1) Sodium 142 (135-145) mmol/L Potassium 4.5 D (3.3-5.1) mmol/L Chloride 112 H (96-108) mmol/L Carbon Dioxide 20 L (22-29) mmol/L Anion Gap 15 (12-20) BUN 22 H (9-16) mg/dL Creatinine 0.98 (0.5-1.4) mg/dL Estim Creat Clear Calc TNP Estimated GFR > 60 POC Glucose 164 H (60-115) mg/dL Random Glucose 203 H (60-115) mg/dL Calcium 8.1 L (8.4-10.2) mg/dL Magnesium 1.7 (1.6-2.6) mg/dL Total Bilirubin 2.1 H (0.0-1.0) mg/dL AST 41 H (5-37) U/L ALT 31 (0-40) U/L Alkaline Phosphatase 296 H (39-117) U/L Total Protein 5.4 L (6.5-8.0) g/dL Albumin 2.6 L (3.5-5.0) g/dL COVID-19 (ANAND) Negative (Negative) COVID-19 Clin Com See Note Blood Type A Negative Antibody Screen NEGATIVE Crossmatch See Detail Independent Interpretation I performed an independent interpretation of an: EKG and Plain X-Ray (ETT confirmed in place, recurrent R effusion noted, no PTX seen) Interpretation: Rate: 78 Rhythm: NSR Magnet: normal Normal P waves. Normal JOSE. Normal QRS complex. ST T wave : normal no ASHUTOSH, flat t waves inf leads qTC: 444 prior studies: no STEMI The study has been interpreted contemporaneously by me. . Radiology Impression Discussion of test interpretation with radiology: I have reviewed the radiologist's reading. External Record Review External record reviewed: Inpatient record, Office record, Outpatient record, Prior outpatient labs, Prior outpatient radiology, Primary care record and Outside ED record Chronic Conditions Patient?s care impacted by: Other (gerd, hypertension, DM, hld, skin cancer, bph, barretts esophagus, arthritis, cirrhosis, abdominal ascites, recurrent GI bleeds ) Critical Care Time Critical Care Time Critical Care Time: Yes Total Critical Care Time: 60 Attestation: review of records, family discussion, medical consult, hemorrhagic shock management, transfer to tertiary center, massive transfusion protocol I attest to this time spent taking care of the patient Discharge Plan Discharge Clinical Impression: Hypovolemic shock, Esophageal hemorrhage, Acute lower GI bleeding Patient Disposition: er [facility] Transfer Details: Dr. Kincaid [facility] ICU Prescriptions: No Action metformin 500 mg tablet 1 tab PO BID acetaminophen [Tylenol] 325 mg Tablet 650 mg PO Q6H PRN (Reason: Pain) meclizine 12.5 mg tablet 1 tab PO BEDTIME simvastatin 20 mg tablet 1 tab PO BEDTIME omeprazole 20 mg capsule,delayed release(DR/EC) 1 cap PO MOWEFR@0630 tamsulosin 0.4 mg capsule 0.4 mg PO BEDTIME furosemide 20 mg tablet 40 mg PO DAILY tadalafil 20 mg tablet 10 mg PO DAILY PRN (Reason: Erectile Dysfunction) pregabalin 200 mg capsule 200 mg PO BID sucralfate 100 mg/mL Suspension 1 g PO QIDACHS Qty: 360 0RF carvedilol 3.125 mg Tablet 3.125 mg PO BID Qty: 180 0RF Protocol: Hold for SBP/HR < HOLD for SBP < : 90 HOLD for HR < : 60 Referrals: Pete Veras MD [Primary Care Provider] - 1 Week Print Language: Turkish
[2023-09-28] MEDS: Midazolam HCl/NS 50 MG/50 ML PLAST..BAG IVCONT (10:18)
[2023-09-28] MEDS: Pantoprazole Sodium 80 MG in 0.9 % Sodium Chloride 80 ML 10 MG IV (10:20)
[2023-09-28] MEDS: ondansetron HCL 4 MG/2 ML VIAL IVPUSH (10:35)
[2023-09-28] MEDS: cefTRIAXone sodium 2 GM in 0.9 % Sodium Chloride 50 ML IV (10:41)
--- NOTE | 2023-09-28 10:53 | PC.NURSE ---
pt BIBA to room 5 by [facility]. 0944 arrival rm 5 POC 164 pt awake and alert, 20G RAC by EMS, 20G placed in LAC by ED Rn, 20G R upper bicep placed by ED RN 500 cc bolus fNS started 0954 RBC unit# [id number] started on pump. VS: HR 72, O2 96% RA, RR 26, BP 76/57 pt became nausea, vomiting bright red blood 12 fluid oz - MD Corey bedside, plan to intubate 20 mg Etomidate IVP 10:01 50mg Roccurronium IVP 10:01 Pt intubated by MD Barrett 7.5 ET, 23 at the lip at 10:03 with + color change 10:05 RBC unit# [id number] started via rapid infuser, temp 39.1 C VS: HR 88, 100% on vent, 12 RR, BP 136/88, end TItal 24 10:07 RBC unit# [id number] started via rapid infuser, temp 39.1 C 10:11 Fentanyl gtt srarted at 25mcg/hr VS: HR80, 100% mech vent, 16RR, ET 26, BP 150/82 10:13 RBC Unit #[id number] finished infusing 10:16 RBC unit# [id number] finished infusing VS: HR 80, 96% Mech vent, 16 RR, 26 ET, BP 110/61 10:18 Versed gtt started at 0.5mg/hr 10:20 Protonix 80mg gtt started at 8mg/hr 10:20 500 ccbolus NS finished infusing 10:26 RBC unit # [id number] finished infusing VS HR 81, 100% mech vent, 16 RR, 23 ET, BP 100/55 rectal temp 97.9
[2023-09-28 10:55] LABS: COVID-19 Test Negative (Negative); IDNOW Serial# 08D9AD1C
--- NOTE | 2023-09-28 12:22 | PC.NURSE ---
Late entry: Pts drips titrated per MAR. Versed titrated to 1mg/hr and fentanyl 100 mcg/hr per MD order for EMS transport due to increase in restlessness. Levo drip programed but not started due to MD order, EMS taking drip with orders from MD to start and titrate to systolic around 100. SEE CHART FOR PRINTED VITALS AND PAPER CHARTING
--- NOTE | 2023-09-28 12:26 | PC.NURSE ---
Report called to [facility] Megan Juárez RN upon EMS transfer, report given to Minesh HASSAN.
--- NOTE | 2023-09-28 12:29 | PC.NURSE ---
Late entry: MTP called around 1000. Multiple providers and RNs at bedside assisting.
--- NOTE | 2023-09-28 13:40 | ECG_ITS ---
Test Reason : chest pain Blood Pressure : / mmHG Vent. Rate : 078 BPM Atrial Rate : 078 BPM P-R Int : 184 ms QRS Dur : 082 ms QT Int : 390 ms P-R-T Axes : 027 006 014 degrees QTc Int : 444 ms Normal sinus rhythm Normal ECG When compared with ECG of 16-SEP-2023 15:14, No significant change was found Referred By: Rhiannon Corey Electronically Signed By:JANAY ATKINSON
== END 2023-09-28 12:45 | disposition short-term general hospital (02) ==
PROVIDERS: Physician Assistant; Emergency Provider Emergency Medicine; PCP Internal Medicine
DX: R57.1 Hypovolemic shock (principal); K92.2 Gastrointestinal hemorrhage, unspecified; K22.89 Other specified disease of esophagus; I10 Essential (primary) hypertension; E11.9 Type 2 diabetes mellitus without complications; Z79.899 Other long term (current) drug therapy; Z11.52 Encounter for screening for COVID-19
CPT/HCPCS: 31500; 36415; 36430; 36556; 71045; 80053; 82947; 83735; 85025; 85610; 86850; 86900; 86901; 86920; 87635; 93005; 94002; 96365; 96367; 96375; 99285; C9113; J0696; J2251; J2354; J2405; J3010; P9016; P9017

== ENCOUNTER → 2023-09-28 13:40 | Outpatient (BNV) | payer MEDICARE, SELFPAY | PROVIDERS: Emergency Provider Emergency Medicine; PCP Internal Medicine; Visit Provider Internal Medicine | DX: R07.9 Chest pain, unspecified (principal) | CPT/HCPCS: 93010 ==

== ENCOUNTER 2023-09-28 23:59 | Outpatient (BNV) | payer MEDICARE, SELFPAY | END 2023-10-01 23:59 | PROVIDERS: PCP Internal Medicine; Visit Provider Internal Medicine | DX: I44.1 Atrioventricular block, second degree (principal) | CPT/HCPCS: 99223 ==